=== PATIENT | male | born 1950 | race Caucasian/White ===

== ENCOUNTER 2017-08-23 14:47 | Inpatient (IN) | payer MEDICARE, OTHER ==
[2017-08-23] VITALS (13 sets, daily range): BP systolic 67–115; BP diastolic 51–80; PULSE 60–234; RESP 16–28; TEMP 97.5; O2SAT 94–98
[~2017-08-23] VITALS: Ht 175.3 cm; Wt 100.2 kg
[2017-08-23] MEDS ORDERED: AMIODARONE INJ 150 MG in DEXTROSE 5% IN WATER 100ML INJ 97 ML IV ONE ×2 (15:08)
[2017-08-23] MEDS ORDERED: ADENOSINE IV SOLN 3 MG/ML 2 ML VIAL ONE ×3 (15:30→15:34)
--- NOTE | 2017-08-23 15:35 | RADRPT ---
EXAM DATE/TIME: 08/23/2017 15:10 [place] COMPARISON: No previous studies available for comparison. INDICATIONS : Abnormal results- Tachycardia. MEDICAL HISTORY : None. SURGICAL HISTORY : None. ENCOUNTER: Initial ACUITY: 1 day PAIN SCORE: 0/10 LOCATION: Bilateral chest FINDINGS: A single view of the chest demonstrates the lungs to be symmetrically aerated without evidence of mas s, infiltrate or effusion. The cardiomediastinal contours are unremarkable. Osseous structures are intact. CONCLUSION: No acute disease. Sagar Miles MD on August 23, 2017 at 15:33 Board Certified Radiologist. This report was verified electronically.
[2017-08-23] MEDS ORDERED: MIDAZOLAM HCL 5 MG/ML VIAL (1 ML) ONE (15:39)
[2017-08-23] MEDS ORDERED: ONDANSETRON HCL 4 MG/2 ML VIAL ONE (15:48)
[2017-08-23] MEDS ORDERED: SODIUM CHLORID 0.9% 500 ML INJ 500 ML IV ONE (16:15)
[2017-08-23] MEDS ORDERED: SODIUM CHLORIDE 0.9% IV ONE ×2 (16:15)
[2017-08-23] MEDS ORDERED: MILRINONE IV ONE ×2 (16:15)
[2017-08-23 16:16] LABS: AUTOMATED NEUTROPHIL # 21.1 TH/MM3 (1.8-7.7); BASOPHIL # 0.1 TH/MM3 (0-0.2); BASOPHIL % 0.2 % (0.0-2.0); EOSINOPHIL # 0.1 TH/MM3 (0-0.4); EOSINOPHIL % 0.2 % (0.0-4.0); HEMATOCRIT 41.4 % (39.0-51.0); LYMPH % 8.3 % (9.0-44.0); LYMPHOCYTE # 2.2 TH/MM3 (1.0-4.8); MEAN CELL VOLUME 95.3 FL (80.0-100.0); MEAN CORPUSCULAR HEMOGLOBIN 33.1 PG (27.0-34.0); MEAN CORPUSCULAR HGB CONC 34.7 % (32.0-36.0); MONO % 10.5 % (0.0-8.0); NEUT % 80.8 % (16.0-70.0); PLATELET COUNT 221 TH/MM3 (150-450); RED BLOOD COUNT 4.35 MIL/MM3 (4.50-5.90); RED CELL DISTRIBUTION WIDTH 12.4 % (11.6-17.2); WHITE BLOOD COUNT 26.2 TH/MM3 (4.0-11.0)
[2017-08-23 16:17] LABS: HEMO FLAGS AUTO DIFF
[2017-08-23] MEDS ORDERED: thyroid med (16:18)
[2017-08-23] MEDS ORDERED: BP med (16:18)
[2017-08-23 16:28] LABS: INTERNATIONAL NORMALIZED RATIO 1.1 RATIO
[2017-08-23 16:37] LABS: ALKALINE PHOSPHATASE 39 U/L (45-117); ALT (GPT) 21 U/L (12-78); ANION GAP 10 MEQ/L (5-15); AST (GOT) 38 U/L (15-37); BICARBONATE 16.5 MEQ/L (21.0-32.0); BLOOD UREA NITROGEN 45 MG/DL (7-18); CHLORIDE 101 MEQ/L (98-107); CREATINE KINASE 233 U/L (39-308); GLOMERULAR FILTRATION RATE 42 ML/MIN (>89); POTASSIUM 5.5 MEQ/L (3.5-5.1); SODIUM (NA) 127 MEQ/L (136-145); TOTAL BILIRUBIN ADULT 1.6 MG/DL (0.2-1.0)
[2017-08-23 16:45] LABS: FREE T3 2.53 PG/ML (2.18-3.98); FREE T4 1.5 NG/DL (0.76-1.46); PLATELET ESTIMATE SMEAR NORMAL (NORMAL); PLATELET MORPHOLOGY NORMAL (NORMAL); SCAN/DIFF AUTO DIFF CONFIRMED
[2017-08-23 16:50] LABS: CKMB 3.6 NG/ML (0.5-3.6)
--- NOTE | 2017-08-23 17:08 | PD ---
HPI Chief Complaint: Abnormal Results Time Seen by Provider: 14:55 Travel History International Travel<30 days: No Contact w/Intl Traveler<30days: No Traveled to known affect area: No History of Present Illness HPI Patient is a 67-year-old male who presents to an urgent care center in the area for evaluation of nausea and vomiting which is been going on for the past 5 days. Patient states he thought he had food poisoning and she's not feeling well when in for evaluation. According to EMS the patient had an irregular heartbeat and could not find a blood pressure on him so 911 was called. 911 arrived and found the patient to be in a wide complex tachycardia at a rate of 220-240. They called physician for orders and the physician ordered 10 mg of Cardizem which he received prior to arrival. On arrival the patient is still very tachycardic with an irregular pulse. He denies any chest pain throughout the events. Denies any shortness of breath. He states that he is on 2 blood pressure medicines at home which she cannot remember there names of and he is on thyroid medicine. Denies any fever denies any cough or congestion. Denies a history of cardiac catheterization and does not have a rn intake. PFSH Past Medical History Diminished Hearing: No Hypertension: Yes Thyroid Disease: Yes (hypothy) Past Surgical History Endocrine Surgery: Yes (thyroide ) Social History Alcohol Use: No Tobacco Use: No Substance Use: No Allergies-Medications (Allergen,Severity, Reaction): Coded Allergies: No Known Allergies (Unverified , 08/23/17) Reported Meds & Prescriptions Reported Meds & Active Scripts Active Reported [thyroid med ] [BP med ] Review of Systems Except as stated in HPI: all other systems reviewed are Neg Physical Exam Narrative GENERAL: Well-developed well-nourished, quite pleasant male in no obvious distress. SKIN: Focused skin assessment warm/dry. HEAD: Atraumatic. Normocephalic. EYES: Pupils equal and round. No scleral icterus. No injection or drainage. ENT: No nasal bleeding or discharge. Mucous membranes pink and moist. NECK: Trachea midline. No JVD. CARDIOVASCULAR: Auscultation of the patient's heart reveals heart rate 220-240. Pulse rate however is in the high 100s. 2+ bilateral equal pulses are felt in all 4 extremities. No murmur appreciated. No carotid bruits appreciated. RESPIRATORY: No accessory muscle use. Clear to auscultation. Breath sounds equal bilaterally. GASTROINTESTINAL: Abdomen soft, non-tender, nondistended. Hepatic and splenic margins not palpable. MUSCULOSKELETAL: No obvious deformities. No clubbing. No cyanosis. No edema. NEUROLOGICAL: Awake and alert. No obvious cranial nerve deficits. Motor grossly within normal limits. Normal speech. PSYCHIATRIC: Appropriate mood and affect; insight and judgment normal. Data Data Last Documented VS Vital Signs Date Time Temp Pulse Resp B/P (MAP) Pulse Ox O2 Delivery O2 Flow Rate FiO2 08/23/17 16:10 62 20 85/58 (67) 08/23/17 16:07 97 Room Air 4.00 Orders Orders Electrocardiogram (08/23/17 15:08) Ckmb (Isoenzyme) Profile (08/23/17 15:08) Complete Blood Count With Diff (08/23/17 15:08) Comprehensive Metabolic Panel (08/23/17 15:08) Magnesium (Mg) (08/23/17 15:08) Prothrombin Time / Inr (Pt) (08/23/17 15:08) Act Partial Throm Time (Ptt) (08/23/17 15:08) Troponin I (08/23/17 15:08) Chest, Single Ap (08/23/17 15:08) Ecg Monitoring (08/23/17 15:08) Iv Access Insert/Monitor (08/23/17 15:08) Oximetry (08/23/17 15:08) Oxygen Administration (08/23/17 15:08) B-Type Natriuretic Peptide (08/23/17 15:08) Dextrose 5% In Wate... W/Amiodarone Inj (08/23/17 15:08) Lactic Acid (08/23/17 15:23) Thyroid Stimulating Hormone (08/23/17 15:23) Free T3 (08/23/17 15:23) Free Thyroxine (T4) (08/23/17 15:23) Adenosine Inj (Adenocard Inj) (08/23/17 15:30) Adenosine Inj (Adenocard Inj) (08/23/17 15:31) Adenosine Inj (Adenocard Inj) (08/23/17 15:34) Midazolam Inj (Versed Inj) (08/23/17 15:39) Ondansetron Inj (Zofran Inj) (08/23/17 15:48) Sodium Chlorid 0.9% 500 Ml Inj (Ns 500 M (08/23/17 16:15) Milrinone Inj (Primacor Inj) (08/23/17 16:15) Admit Order (Ed Use Only) (08/23/17 ) CKMB (08/23/17 16:00) CKMB% (08/23/17 16:00) Labs Laboratory Tests Test 08/23/17 16:00 White Blood Count 26.2 TH/MM3 Red Blood Count 4.35 MIL/MM3 Hemoglobin 14.4 GM/DL Hematocrit 41.4 % Mean Corpuscular Volume 95.3 FL Mean Corpuscular Hemoglobin 33.1 PG Mean Corpuscular Hemoglobin Concent 34.7 % Red Cell Distribution Width 12.4 % Platelet Count 221 TH/MM3 Mean Platelet Volume 8.0 FL Neutrophils (%) (Auto) 80.8 % Lymphocytes (%) (Auto) 8.3 % Monocytes (%) (Auto) 10.5 % Eosinophils (%) (Auto) 0.2 % Basophils (%) (Auto) 0.2 % Neutrophils # (Auto) 21.1 TH/MM3 Lymphocytes # (Auto) 2.2 TH/MM3 Monocytes # (Auto) 2.7 TH/MM3 Eosinophils # (Auto) 0.1 TH/MM3 Basophils # (Auto) 0.1 TH/MM3 CBC Comment AUTO DIFF Differential Comment AUTO DIFF CONFIRMED Platelet Estimate NORMAL Platelet Morphology Comment NORMAL Red Cell Morphology Comment NORMAL Prothrombin Time 12.0 SEC Prothromb Time International Ratio 1.1 RATIO Activated Partial Thromboplast Time 27.0 SEC Blood Urea Nitrogen 45 MG/DL Creatinine 1.65 MG/DL Random Glucose 123 MG/DL Total Protein 6.8 GM/DL Albumin 3.2 GM/DL Calcium Level 8.4 MG/DL Magnesium Level 2.0 MG/DL Alkaline Phosphatase 39 U/L Aspartate Amino Transf (AST/SGOT) 38 U/L Alanine Aminotransferase (ALT/SGPT) 21 U/L Total Bilirubin 1.6 MG/DL Sodium Level 127 MEQ/L Potassium Level 5.5 MEQ/L Chloride Level 101 MEQ/L Carbon Dioxide Level 16.5 MEQ/L Anion Gap 10 MEQ/L Estimat Glomerular Filtration Rate 42 ML/MIN Lactic Acid Level 2.4 mmol/L Total Creatine Kinase 233 U/L Creatine Kinase MB 3.6 NG/ML Troponin I 0.45 NG/ML B-Type Natriuretic Peptide 539 PG/ML Free Thyroxine 1.50 NG/DL Free Triiodothyronine (T3) pg/dL 2.53 PG/ML Thyroid Stimulating Hormone 3rd Gen 1.560 uIU/ML MDM Medical Decision Making Medical Screen Exam Complete: Yes Emergency Medical Condition: Yes Differential Diagnosis Ventricular tachycardia, atrial flutter, atrial fibrillation. ACS, AMI, PE. Narrative Course Patient roomed in emergency department, receive Cardizem 10 mg IV bolus prior to arrival, still very tachycardic but seems to be tolerating it fairly well he was given 150 mg of amiodarone over 10 minutes. No response after the next 15 minutes the patient was given and then a adenosine 6 mg IV which did not alter his heart rate, he was then given an additional bolus of 12 mg of adenosine again with no alteration of his heart rate. The patient then began complaining of some mild shortness of breath. Auscultation of his lungs did not reveal any rales. At this time it was felt the patient would best served to be sedated and cardioverted. He was given 2 mg of Versed IV which did not alter his mentation, given an additional 3 for a total of 5 mg of Versed he was then sicker denies cardioverted 100 J. Initially bradycardic afterwards the patient did have some altered mental status. His heart rate eventually returned to 60- 70 bpm normal sinus rhythm. An EKG was repeated which shows sinus rhythm without acute ST segment changes. Blood work was drawn immediately following cardioversion (within a few seconds) and this revealed a troponin of 0.45, creatinine of 1.6, bilirubin 1.6. Fairly clear that the patient has gone into cardiogenic shock, initially hypotensive after cardioversion over the next few hours his blood pressure increased to 98/61. The patient was discussed with Dr. Shun Romero and I suggested that the patient may be given at bolus dose of milrinone, Dr. Romero's partner Dr. Colmenares had called and requested the patient be observed if he is mentally sound after the cardioversion and to hold milrinone. Patient was discussed with Dr. Romero, troponin 0.45, will perform CAT scan of the head given his altered mental status but this is likely from Versed. He will consider anticoagulating the patient after CAT scans in the ICU. Over the next hour or so the patient's blood pressure improved to 98/61. Mental status improved after Versed had been metabolized and he is feeling better. At 1800, Dr. Duarte is at bedside evaluating the patient, we're waiting the results for the stat echo. Patient overall is improved. Has orders for the CVICU and will be transported at this time. Total intervention from EMS and myself: normal saline 2L bolus Cardizem 10 mg IV bolus Amiodarone 150 mg over 10 minutes Adenosine 6 mg bolus Adenosine 12 mg bolus Versed 5 mg IV Synchronized cardioversion 100 J Critical Care Narrative Aggregate critical care time was 35 minutes. Time to perform other separately billable procedures was not included in the critical care time. My time did not include minutes spent treating any other patients simultaneously or on activities that did not directly contribute to the patient's treatment. The services I provided to this patient were to treat and/or prevent clinically significant deterioration that could result in: , Disability, or organ failure. I provided critical care services requiring my management, as noted below: Chart data review, documentation time, medication orders and management, vital sign assessments/reviewing monitor data, ordering and reviewing lab tests, ordering and interpreting/reviewing x-rays and diagnostic studies, care of the patient and discussion of the patient with the admitting physicians. Diagnosis Primary Impression: Tachycardia Additional Impression: Cardiogenic shock Admitting Information Admitting Physician Requests: Admit Condition: Cole Mann MD Aug 23, 2017 17:08
[2017-08-23] MEDS ORDERED: AMIODARONE INJ 900 MG in DEXTROSE 5% IN WATE 500 ML INJ 482 ML IV PRN ×2 (17:12)
--- NOTE | 2017-08-23 17:14 | HHI.HP ---
[facility] Service Critical Care Medicine Primary Care Physician Unknown Admission Diagnosis Unstable VT Diagnosis: Chief Complaint: nausea/vomiting Travel History International Travel<30 Days: No Contact w/Intl Traveler <30 Da: No Traveled to Known Affected Are: No History of Present Illness This is a 67-year-old male with a past medical history significant for hypothyroidism and hypertension well-controlled on medication who presents with a few day history starting , 3 days prior to admission, where he started having nausea and vomiting. He states that his nausea was not associated with eating or food. It was nonbloody, nonbilious. He denies exertion worsening the symptoms. He vehemently denies chest pain, shortness of breath. Denies exertional dyspnea, and even endorsed walking 2 miles on without any difficulties, despite having nausea and vomiting. He denies ever having any past history of coronary artery disease or stroke, and denies any family history of coronary artery disease or stroke. Today his symptoms progressed and he went to an urgent care clinic where he was found to be in a wide complex tachycardia and EMS was called to bring him to the emergency department. EMS was unable to obtain a blood pressure, the patient was initially given 10 mg of Cardizem IV bolus, followed by amiodarone IV bolus , followed by adenosine, followed finally by electrical cardioversion. At this point, the patient converted into normal sinus rhythm. He was slightly hypotensive and then given 2 L normal saline bolus. Stat echo was ordered and is still pending. Troponins which were drawn before electrical cardioversion are mildly elevated at 0.45. BNP is elevated at 539. Lactate is elevated at 2.4. He has evidence of early acute kidney injury and a creatinine of 1.6. A complete review of systems is otherwise negative in this gentleman, including fever, chills, diarrhea, constipation, bloody stools, lower extremity swelling, recent flulike illnesses out to the last 6-8 months, international travel. He does have a history of prior thyroidectomy and a few months ago had a slightly elevated thyroid function levels secondary to iatrogenic hyperthyroidism, but the patient's states that his Synthroid dose was decreased and his recheck levels were within normal limits. Critical care medicine is consulted to evaluate and manage the patient's new acute dysrhythmia and shock. Review of Systems Constitutional: DENIES: Diaphoretic episodes, Fatigue, Fever, Weight gain, Weight loss, Chills, Dizziness, Change in appetite, Night Sweats Endocrine: DENIES: Heat/cold intolerance, Polydipsia, Polyuria, Polyphagia Eyes: DENIES: Blurred vision, Diplopia, Eye inflammation, Eye pain, Vision loss , Photosensitivity, Double Vision Ears, nose, mouth, throat: DENIES: Tinnitus, Hearing loss, Vertigo, Nasal discharge, Oral lesions, Throat pain, Hoarseness, Ear Pain, Running Nose, Epistaxis, Sinus Pain, Toothache, Odynophagia Respiratory: DENIES: Apneas, Cough, Snoring, Wheezing, Hemoptysis, Sputum production, Shortness of breath Cardiovascular: DENIES: Chest pain, Palpitations, Syncope, Dyspnea on Exertion , PND, Lower Extremity Edema, Orthopnea, Claudication Gastrointestinal: COMPLAINS OF: Nausea, Vomiting, DENIES: Abdominal pain, Black stools, Bloody stools, Constipation, Diarrhea, Difficulty Swallowing, Anorexia Musculoskeletal: DENIES: Joint pain, Muscle aches, Stiffness, Joint Swelling, Back pain, Neck pain Neurologic: DENIES: Abnormal gait, Headache, Localized weakness, Paresthesias, Seizures, Speech Problems, Tremor, Poor Balance Past Family Social History Allergies: Coded Allergies: No Known Allergies (Unverified , 08/23/17) Past Medical History Hypothyroidism Hypertension Past Surgical History Right knee surgery Thyroidectomy Reported Medications [thyroid med ] [BP med ] Patient does not know what his thyroid medication dose or blood pressure medications are Active Ordered Medications See MAR Family History Patient does not have any family history of coronary artery disease, stroke, prior heart attack Social History Patient does not drink, does not use tobacco products, does not use illicit drugs Physical Exam Vital Signs Vital Signs Date Time Temp Pulse Resp B/P (MAP) Pulse Ox O2 Delivery O2 Flow Rate FiO2 08/23/17 16:53 64 28 90/66 (74) 98 Nasal Cannula 3.00 08/23/17 16:10 62 20 85/58 (67) 08/23/17 16:07 60 18 88/59 (69) 97 Room Air 4.00 08/23/17 15:46 64 08/23/17 15:44 220 08/23/17 15:31 224 08/23/17 15:25 220 08/23/17 15:20 225 18 94 Room Air 08/23/17 15:20 185 08/23/17 15:14 Room Air 10/7/17 15:14 94 Room Air 08/23/17 15:05 234 08/23/17 14:58 121 16 67/51 (24) 94 Physical Exam GENERAL: Middle-aged obese male, lying in bed, mild distress. HEENT: Normocephalic. Atraumatic. Pupils equal, round, reactive, conjugate. Mucous membranes are moist NECK: Trachea is midline. + JVD CHEST: Equal chest rise. Clear to auscultation. Nasal cannula oxygen CARDIOVASCULAR: Normal rate, regular rhythm. Sinus by telemetry. ABDOMEN: Obese, Soft, nontender, nondistended. No guarding. MUSCULOSKELETAL: Pulses 2+. No peripheral edema. NEUROLOGICAL: RASS -1. Recently sedated for cardioversion. Follows commands. Nonfocal. Laboratory Laboratory Tests Test 08/23/17 16:00 White Blood Count 26.2 Red Blood Count 4.35 Hemoglobin 14.4 Hematocrit 41.4 Mean Corpuscular Volume 95.3 Mean Corpuscular Hemoglobin 33.1 Mean Corpuscular Hemoglobin Concent 34.7 Red Cell Distribution Width 12.4 Platelet Count 221 Mean Platelet Volume 8.0 Neutrophils (%) (Auto) 80.8 Lymphocytes (%) (Auto) 8.3 Monocytes (%) (Auto) 10.5 Eosinophils (%) (Auto) 0.2 Basophils (%) (Auto) 0.2 Neutrophils # (Auto) 21.1 Lymphocytes # (Auto) 2.2 Monocytes # (Auto) 2.7 Eosinophils # (Auto) 0.1 Basophils # (Auto) 0.1 CBC Comment AUTO DIFF Differential Comment AUTO DIFF CONFIRMED Platelet Estimate NORMAL Platelet Morphology Comment NORMAL Red Cell Morphology Comment NORMAL Prothrombin Time 12.0 Prothromb Time International Ratio 1.1 Activated Partial Thromboplast Time 27.0 Blood Urea Nitrogen 45 Creatinine 1.65 Random Glucose 123 Total Protein 6.8 Albumin 3.2 Calcium Level 8.4 Magnesium Level 2.0 Alkaline Phosphatase 39 Aspartate Amino Transf (AST/SGOT) 38 Alanine Aminotransferase (ALT/SGPT) 21 Total Bilirubin 1.6 Sodium Level 127 Potassium Level 5.5 Chloride Level 101 Carbon Dioxide Level 16.5 Anion Gap 10 Estimat Glomerular Filtration Rate 42 Lactic Acid Level 2.4 Total Creatine Kinase 233 Creatine Kinase MB 3.6 Troponin I 0.45 B-Type Natriuretic Peptide 539 Free Thyroxine 1.50 Free Triiodothyronine (T3) pg/dL 2.53 Thyroid Stimulating Hormone 3rd Gen 1.560 Result Diagram: 08/23/17 1600 08/23/17 1600 Imaging Last Impressions Chest X-Ray 08/23/17 1508 Signed Impressions: Service Date/Time: Friday, August 23, 2017 15:10 - CONCLUSION: No acute disease. MD Jay Patel VTE Risk Assessment Jeromerini VTE Risk Assessment: Mod/High Risk (score >= 2) Caprini Risk Assessment Model Point Value = 1 Point Value = 2 Point Value = 3 Point Value = 5 Age 41-60 Minor surgery BMI > 25 kg/m2 Swollen legs Varicose veins or History of unexplained or recurrent spontaneous Oral contraceptives or hormone replacement Sepsis (< 1 month) Serious lung disease, including pneumonia (< 1 month) Abnormal pulmonary function Acute myocardial infarction Congestive heart failure (< 1 month) History of inflammatory bowel disease Medical patient at bed rest Age 61-74 Arthroscopic surgery Major open surgery (> 45 min) Laparoscopic surgery (> 45 min) Malignancy Confined to bed (> 72 hours) Immobilizing plaster cast Central venous access Age >= 75 History of VTE Family history of VTE Factor V Leiden Prothrombin [id number] Lupus anticoagulant Anticardiolipin antibodies Elevated serum homocysteine Heparin-induced thrombocytopenia Other congenital or acquired thrombophilia Stroke (< 1 month) Elective arthroplasty Hip, pelvis, or leg fracture Acute spinal cord injury (< 1 month) Prophylaxis Regimen Total Risk Factor Score Risk Level Prophylaxis Regimen 0-1 Low Early ambulation 2 Moderate Order ONE of the following: *Sequential Compression Device (SCD) *Heparin 5000 units SQ BID 3-4 Higher Order ONE of the following medications: *Heparin 5000 units SQ TID *Enoxaparin/Lovenox 40 mg SQ daily (WT < 150 kg, CrCl > 30 mL/min) *Enoxaparin/Lovenox 30 mg SQ daily (WT < 150 kg, CrCl > 10-29 mL/min) *Enoxaparin/Lovenox 30 mg SQ BID (WT < 150 kg, CrCl > 30 mL/min) AND/OR *Sequential Compression Device (SCD) 5 or more Highest Order ONE of the following medications: *Heparin 5000 units SQ TID (Preferred with Epidurals) *Enoxaparin/Lovenox 40 mg SQ daily (WT < 150 kg, CrCl > 30 mL/min) *Enoxaparin/Lovenox 30 mg SQ daily (WT < 150 kg, CrCl > 10-29 mL/min) *Enoxaparin/Lovenox 30 mg SQ BID (WT < 150 kg, CrCl > 30 mL/min) AND *Sequential Compression Device (SCD) Assessment and Plan Assessment and Plan Assessment: 67-year-old male with past medical history of hypothyroidism and hypertension who presents with new onset tachycardia dysrhythmia, which is either A. fib/flutter with aberrancy versus slow V. tach. He is now converted in sinus rhythm. He is borderline hypotensive. He has evidence of what appears to be cardiogenic shock and intravascular volume overload, hypervolemic hyponatremia, acute kidney injury, congestive hepatopathy, elevated BNP, and elevated troponins. Certainly acute pulmonary embolism could present this way, as could new acute cardiomyopathy. Intracerebral hemorrhage could also produce similar symptoms of nausea and vomiting with ventricular dysrhythmias. We will proceed with CT head, CT pulmonary injury gram, and stat echo. Patient does need to be anticoagulated as long as he does not have a new head bleed. We will continue patient on amiodarone infusion until further formation can be determined. We will aggressively ensure that his electrolytes remain at normal levels, and pending the results of his diagnostic workup, the patient will likely need to be aggressively diuresed for what is likely to be congestive heart failure exacerbation of new and unknown type. Patient remains critically ill now with evidence of multiorgan system dysfunction secondary to his cardiogenic shock secondary to his new onset ventricular dysrhythmia. We will admit him to an ICU and monitored carefully. Plan by systems: Neurologic: - Avoid long-acting sedating meds - Follow up CT head Respiratory: - Aggressive pulmonary toilet - Wean oxygen by nasal cannula for goal SPO2 greater than 92% - Follow up CT pulmonary angiogram Cardiovascular: Cardiogenic shock Elevated troponin, possible NSTEMI Acute CHF exacerbation, new, unknown type New-onset tachydysrhythmia: afib/flutter with aberrancy vs. v tach - Follow-up stat echo - Trend troponin - Patient will need to be anticoagulated following negative CT head - Cardiology consult - Continue amiodarone infusion - Monitor on telemetry in ICU. Zoll pads at bedside - We'll likely need forced diuresis, but will follow up diagnostic studies first Renal: Acute kidney injury -- Strict I/Os - May need Blackmon catheter, we'll hold off initially - Trend creatinine - Renal function likely secondary to cardiogenic shock FEN/GI: congestive hepatopathy Intravascular volume overload Hyperkalemia Hypervolemic hyponatremia Nausea/vomiting - His symptoms nausea and vomiting are likely secondary to congestive hepatopathy secondary to cardiogenic shock - We'll send hepatitis panel and order liver ultrasound - Daily BMP, LFTs, coags - Zofran when necessary for nausea - Forced diuresis after diagnostic studies Heme/ID: Leukocytosis- likely reactive - Daily CBC - No infectious etiology suspected this time - Does not meet transfusion triggers Endocrine: Hypothyroidism --We'll hold off on restarting home Synthroid until we first of the patient's home dose and until his ventricular dysrhythmia is well evaluated Prophylaxis: GI Prophylaxis - Pepcid DVT Prophylaxis -- SCDs - We'll need full dose and a coagulation once negative head CT. Lines: Peripheral IVs We'll start without Blackmon, but if his urine output is not adequate we May Need Pl., Blackmon Dispo: Admitted to the CVICU. Critically ill. This patient remains critically ill with one or more organ systems which are or may become a threat to life. I have spent in excess of 65 minutes discontinuously in the care and management of this patient. This time is exclusive of procedures, and includes, but is not limited to, evaluation of the patient, review of the medical record, discussions with family, consultants, nursing staff, or respiratory therapy, and documentation in the medical record. Code Status Full Code J Carlos Romero MD Aug 23, 2017 17:14
[2017-08-23] MEDS ORDERED: POTASSIUM CHLOR 40 MEQ PREMIX 100 ML IV PRN ×2 (17:15)
[2017-08-23] MEDS ORDERED: CHLORHEXIDINE GLUCONATE 2 % 1 PACK (2 CLOTHS) TOP PRN (17:15)
[2017-08-23] MEDS ORDERED: SODIUM CHLORIDE 0.9% FLUSH 10 ML FLUSH IV FLUSH PRN (17:15)
[2017-08-23] MEDS ORDERED: POTASSIUM CHLOR 20 MEQ PREMIX 100 ML IV PRN ×2 (17:15)
[2017-08-23] MEDS ORDERED: BISACODYL 10 MG SUPP RECTAL PRN (17:15)
[2017-08-23] MEDS ORDERED: ONDANSETRON HCL 4 MG/2 ML VIAL IV PUSH PRN (17:15)
[2017-08-23] MEDS ORDERED: MAGNESIUM OXIDE 400 MG TAB PO PRN (17:15)
[2017-08-23] MEDS ORDERED: POTASSIUM PHOSPHATE MONOBASIC 500 MG TAB PO/TUBE PRN (17:15)
[2017-08-23] MEDS ORDERED: POTASSIUM PHOSPHATE MONOBASIC 500 MG TAB PO PRN (17:15)
[2017-08-23] MEDS ORDERED: MAGNESIUM HYDROXIDE SUSP 30 ML CUP PO PRN (17:15)
[2017-08-23] MEDS ORDERED: LACTULOSE SYRUP 20 GM/30 ML CUP PO PRN (17:15)
[2017-08-23] MEDS ORDERED: SENNOSIDES 8.6 MG TAB PO PRN (17:15)
[2017-08-23] MEDS ORDERED: MAGNESIUM SULFATE INJ 2 GM in SODIUM CHLORIDE 0.9% INJ 96 ML IV PRN (17:15)
[2017-08-23] MEDS ORDERED: RESP: ALBUTEROL 2.5 MG/IPRATROPIUM 0.5 MG NEB (PRN) INH (17:15)
[2017-08-23] MEDS ORDERED: MISCELLANEOUS NURSING INFORMATION XX SCH (17:15)
[2017-08-23] MEDS ORDERED: POTASSIUM PHOSPHATE INJ 30 MMOL in SODIUM CHLOR 0.9% 250 ML INJ 250 ML IV PRN (17:15)
[2017-08-23] MEDS ORDERED: SODIUM PHOSPHATE INJ 30 MMOL in SODIUM CHLOR 0.9% 250 ML INJ 240 ML IV PRN (17:15)
[2017-08-23] MEDS ORDERED: MAGNESIUM SULFATE INJ 4 GM in SODIUM CHLORIDE 0.9% INJ 92 ML IV PRN (17:15)
[2017-08-23] MEDS ORDERED: IOHEXOL 350 MG/ML 10 ML VIAL (for RAD DIAG) IVCONTRAST ONE (17:23)
--- NOTE | 2017-08-23 17:26 | RADRPT ---
EXAM DATE/TIME: 08/23/2017 17:07 [facility] COMPARISON: No previous studies available for comparison. INDICATIONS : Altered mental status. RADIATION DOSE: 56.35 CTDIvol (mGy) MEDICAL HISTORY : Hypertension. SURGICAL HISTORY : Thyroidectomy. ENCOUNTER: Initial ACUITY: 1 day PAIN SCALE: 0/10 LOCATION: cranial TECHNIQUE: Multiple contiguous axial images were obtained of the head. Using automated exposure control and adj ustment of the mA and/or kV according to patient size, radiation dose was kept as low as reasonably a chievable to obtain optimal diagnostic quality images. DICOM format image data is available electro nically for review and comparison. FINDINGS: CEREBRUM: The ventricles are normal for age. No evidence of midline shift, mass lesion, hemorrhage or acute in farction. No extra-axial fluid collections are seen. POSTERIOR FOSSA: The cerebellum and brainstem are intact. The 4th ventricle is midline. The cerebellopontine angle i s unremarkable. EXTRACRANIAL: The visualized portion of the orbits is intact. SKULL: The calvaria is intact. No evidence of skull fracture. CONCLUSION: Normal examination. Vijay Gibbs MD on August 23, 2017 at 17:24 Board Certified Radiologist. This report was verified electronically.
--- NOTE | 2017-08-23 17:48 | RADRPT ---
EXAM DATE/TIME: 08/23/2017 17:13 [facility] COMPARISON: No previous studies available for comparison. INDICATIONS : Chest pain. IV CONTRAST: 75 cc Omnipaque 350 (iohexol) IV RADIATION DOSE: 21.99 CTDIvol (mGy) MEDICAL HISTORY : Hypertension. SURGICAL HISTORY : Thyroidectomy. ENCOUNTER: Initial ACUITY: 1 day PAIN SCALE: 5/10 LOCATION: Bilateral chest TECHNIQUE: Volumetric scanning of the chest was performed using a pulmonary embolism protocol MIP images were re constructed. Using automated exposure control and adjustment of the mA and/or kV according to patien t size, radiation dose was kept as low as reasonably achievable to obtain optimal diagnostic quality images. DICOM format image data is available electronically for review and comparison. Follow-up recommendations for detected pulmonary nodules are based at a minimum on nodule size and pa tient risk factors according to Fleischner Society Guidelines. FINDINGS: PULMONARY ARTERIES: No filling defects are seen in the pulmonary arteries through the segmental level. LUNGS: Mild basilar atelectasis. PLEURAE: There is no pleural thickening or pleural effusion. MEDIASTINUM: There is good visualization of the great vessels of the middle mediastinum. No evidence of mediastin al or hilar adenopathy/mass. Coronary calcifications. Granulomatous calcifications in the left hilum. MUSCULOSKELETAL: Within normal limits for patient age. MISCELLANEOUS: The visualized upper abdominal organs demonstrate no acute abnormality. CONCLUSION: No evidence of pulmonary embolism Sagar Miles MD on August 23, 2017 at 17:42 Board Certified Radiologist. This report was verified electronically.
[2017-08-23] MEDS: HEPARIN-D5W 25,000 U/250 ML 250 ML IV PRN (18:25)
[2017-08-23] MEDS ORDERED: LISI40TA PO (18:52)
[2017-08-23] MEDS ORDERED: AMLO5TAB2 PO (18:52)
[2017-08-23] MEDS ORDERED: LEVO88TA2 PO (18:52)
--- NOTE | 2017-08-23 19:12 | MB ---
cc: SIMEON NARAYANAN DATE OF CONSULTATION: 08/23/2017. HISTORY OF PRESENT ILLNESS: Mr. Burch is a 67-year-old white male with history of hypertension and hypothyroidism. He has had nausea and vomiting for the last three days. He went to the urgent care center and was found to be in wide complex tachycardia. He was brought to the emergency room. He was given IV diltiazem, IV amiodarone and IV adenosine and eventually was cardioverted to sinus rhythm. He had some mild hypotension. His troponin was elevated at 0.45 at 0.45. PAST MEDICAL HISTORY: His past medical history is positive for: 1. Hypertension. 2. Hypothyroidism. 3. No history of diabetes mellitus, dyslipidemia, coronary artery disease or CVA. 4. History of right knee surgery. 5. Thyroidectomy. MEDICATIONS: The patient takes medications for his blood pressure and his thyroid but is not sure about which medicines he takes exactly. ALLERGIES: None. SOCIAL HISTORY: The patient drinks about three drinks a week. He does not drink alcohol. He is accompanied by his . FAMILY HISTORY: Negative for heart disease. REVIEW OF SYSTEMS: Review of systems is otherwise negative. PHYSICAL EXAMINATION: VITAL SIGNS: Blood pressure 98/61, pulse 65 and regular. HEAD, EYES, EARS, NOSE, THROAT: Negative. NECK: 2+ carotid upstrokes, no bruits. LUNGS: Clear. HEART: Regular with no murmurs, rubs or gallops. ABDOMEN: Abdomen soft. No bruits. EXTREMITIES: 2+ distal pulses. NEUROLOGIC: Grossly nonfocal. EKGS: EKG was reviewed and showed wide complex tachycardia. A follow up EKG showed normal sinus rhythm with no acute changes. LABORATORY DATA: Hemoglobin 14.4. Potassium 5.5, creatinine 1.65, AST 38, ALT 21. CK 253, CK-MB 3.6, troponin 0.45. BNP 539. TSH 1.6. DIAGNOSIS: 1. Wide complex tachycardia. 2. Possible [id number] myocardial function. 3. Acute congestive heart failure. 4. Acute renal insufficiency. 5. Nausea and vomiting. 6. Hypertension. 7. Hypothyroidism. RECOMMENDATIONS AND PLAN: Mr. Burch will be admitted to the intensive care unit. Will obtain echocardiogram to evaluate his left ventricular function. Will obtain serial enzymes and EKGs. He will likely need further cardiac testing to evaluate his underlying heart disease. We will monitor his renal function and electrolytes. I will follow him for cardiology during his hospitalization. He will be monitored in the intensive care unit. MD BRENTON Fitzgerald/AMY /6:09 PM /7:03 PM
--- NOTE | 2017-08-23 20:20 | RADRPT ---
EXAM DATE/TIME: 08/23/2017 18:59 [facility] COMPARISON: No previous studies available for comparison. INDICATIONS : Increased lab values. MEDICAL HISTORY : Hypothyroidism. Hypertension. Nausea. Vomiting. SURGICAL HISTORY : Right knee surgery. Thyroid surgery. ENCOUNTER: Initial ACUITY: 1 day PAIN SCORE: 0/10 LOCATION: Bilateral upper quadrant MEASUREMENTS: LIVER: 15.4 cm length COMMON DUCT: 5 mm RIGHT KIDNEY: 14.6 x 4.6 x 5.3 cm SPLEEN: 11.9 cm length FINDINGS: LIVER: Normal echotexture without focal lesion or ductal dilatation. COMMON DUCT: No intraluminal mass or stone visualized. GALLBLADDER: Contains no stones, demonstrates no wall thickening or pericholecystic fluid. PANCREAS: The visualized portions are within normal limits. RIGHT KIDNEY: 6.5 x 6.1 x 5.4 cm simple cyst upper pole right kidney. 1.9 x 0.9 x 1.6 cm cyst right lower pole late rally. SPLEEN: No focal lesion. CONCLUSION: 1. Right renal cysts. Vijay Gibbs MD on August 23, 2017 at 20:17 Board Certified Radiologist. This report was verified electronically.
--- NOTE | 2017-08-23 20:42 | ECHRPT ---
Indication: HEART FAILURE CONCLUSIONS Normal left ventricular size. Wall thickness is normal. The left ventricular systolic function is moderately reduced with an estimated ejection fraction in the range of 35-40%. The right ventricular systoilc function is mildly decreased. Aortic valve sclerosis is present. Mild thickening of the aortic valve leaflets. Trace aortic valve regurgitation. There is trace tricuspid valve regurgitation. The estimated pulmonary arterial pressure is 40 mmHg. BP: / HR: Rhythm: Other MEASUREMENTS (Male / Female) Normal Values Technical Quality:Good 2D ECHO LV Diastolic Diameter PLAX 4.8 cm 4.2 - 5.9 / 3.9 - 5.3 cm LV Systolic Diameter PLAX 4.1 cm IVS Diastolic Thickness 1.2 cm 0.6 - 1.0 / 0.6 - 0.9 cm LVPW Diastolic Thickness 0.8 cm 0.6 - 1.0 / 0.6 - 0.9 cm LV Relative Wall Thickness 0.4 RV Internal Dim ED PLAX 2.2 cm LA Systolic Diameter LX 3.3 cm 3.0 - 4.0 / 2.7 - 3.8 cm M-MODE AV Cusp Separation MM 1.8 cm DOPPLER Mitral E Point Velocity 64.7 cm/s Mitral A Point Velocity 93.8 cm/s Mitral E to A Ratio 0.7 TR Peak Velocity 270.0 cm/s TR Peak Gradient 29.2 mmHg Right Atrial Pressure 10.0 mmHg Pulmonary Artery Systolic Pressu 39.2 mmHg Right Ventricular Systolic Press 39.2 mmHg FINDINGS LEFT VENTRICLE Normal left ventricular size. Wall thickness is normal. The left ventricular systolic function is moderately reduced with an estimated ejection fraction in the range of 35-40%. RIGHT VENTRICLE The right ventricular systoilc function is mildly decreased. LEFT ATRIUM The left atrial size is normal. RIGHT ATRIUM The right atrial size is normal. ATRIAL SEPTUM Normal atrial septal thickness without atrial level shunting by limited color doppler interrogation. AORTA The aortic root and proximal ascending aorta are normal in size on limited imaging. MITRAL VALVE Structurally normal mitral valve. No mitral valve stenosis or regurgitation. AORTIC VALVE Aortic valve sclerosis is present. Mild thickening of the aortic valve leaflets. Trace aortic valve regurgitation. TRICUSPID VALVE There is trace tricuspid valve regurgitation. The estimated pulmonary arterial pressure is 40 mmHg. PULMONARY VALVE No pulmonary valve regurgitation or stenosis. VESSELS The inferior vena cava is normal in size. PERICARDIUM No pericardial effusion. Erika Duarte MD, FACC (Electronically Signed) Final Date:23 August 2017 20:41
[2017-08-23] MEDS ORDERED: FUROSEMIDE 100 MG/10 ML VIAL IV PUSH ONE (21:19)
[2017-08-23] MEDS: FAMOTIDINE 20 MG TAB PO SCH (22:15)
[2017-08-23] MEDS: SODIUM CHLORIDE 0.9% FLUSH 10 ML FLUSH IV FLUSH SCH (22:15)
[2017-08-23] MEDS: DOCUSATE SODIUM 50 MG/SENNA 8.6 MG TAB PO SCH (22:15)
[2017-08-23] MEDS: AMIODARONE INJ 450 MG in DEXTROSE 5% IN WATE(EXCEL) INJ 241 ML IV PRN ×2 (22:16)
[2017-08-24] VITALS (8 sets, daily range): BP systolic 103–144; BP diastolic 73–81; PULSE 55–113; RESP 16–20; TEMP 97.7–98.5; O2SAT 94–95
[2017-08-24] MEDS: CHLORHEXIDINE GLUCONATE 2 % 1 PACK (2 CLOTHS) TOP SCH (04:00)
--- NOTE | 2017-08-24 06:00 | EKG ---
Date Performed: 08/23/2017 Time Performed: 15:52:35 PTAGE: 67 years EKG: Sinus rhythm INFERIOR MYOCARDIAL INFARCTION ABNORMAL ECG INTERPRETATION BASED ON A DEFAULT AGE OF 40 YEARS NO PREVIOUS TRACING DOCTOR: Raoul Ramon Interpretating Date/Time 08/24/2017 05:56:04
--- NOTE | 2017-08-24 06:01 | EKG ---
Date Performed: 08/23/2017 Time Performed: 15:10:18 PTAGE: 67 years EKG: ATRIAL FIBRILLATION WITH RAPID VENTRICULAR RESPONSE LEFT BUNDLE BRANCH BLOCK ST ELEVATION, CONSIDER LATERAL INJURY ST ELEVATION, CONSIDER INFERIOR INJURY ACUTE MA NO PREVIOUS TRACING DOCTOR: Raoul Ramon Interpretating Date/Time 08/24/2017 05:57:38
[2017-08-24] MEDS: AMIODARONE INJ 450 MG in DEXTROSE 5% IN WATE(EXCEL) INJ 241 ML IV PRN ×4 (07:29→22:26)
[2017-08-24 08:07] LABS: HEMATOCRIT 39.7 % (39.0-51.0); MEAN CORPUSCULAR HEMOGLOBIN 33.4 PG (27.0-34.0); MEAN CORPUSCULAR HGB CONC 35.5 % (32.0-36.0); PLATELET COUNT 197 TH/MM3 (150-450); RED BLOOD COUNT 4.22 MIL/MM3 (4.50-5.90); RED CELL DISTRIBUTION WIDTH 12.2 % (11.6-17.2); REVIEW FLAG FINAL; WHITE BLOOD COUNT 15.9 TH/MM3 (4.0-11.0)
[2017-08-24 08:16] LABS: APTT (PATIENT) 45.3 SEC (24.3-30.1); PROTHROMBIN TIME - PATIENT 11.6 SEC (9.8-11.6)
[2017-08-24 08:39] LABS: BICARBONATE 23.6 MEQ/L (21.0-32.0); INDIRECT BILIRUBIN 1.5 MG/DL (0.0-0.8); POTASSIUM 3.9 MEQ/L (3.5-5.1); TOTAL BILIRUBIN ADULT 2.1 MG/DL (0.2-1.0)
[2017-08-24] MEDS ORDERED: AMIODARONE INJ 150 MG in DEXTROSE 5% IN WATER 100ML INJ 97 ML IV ONE ×2 (09:07)
[2017-08-24] MEDS ORDERED: POTASSIUM CHLOR 20 MEQ PREMIX 100 ML IV ONE (09:15)
--- NOTE | 2017-08-24 09:48 | HHI.CCPN ---
Subjective Remarks/Hospital Course Hospital Course: This is a 67-year-old male with a past medical history significant for hypothyroidism and hypertension well-controlled on medication who presents with a few day history starting , 3 days prior to admission, where he started having nausea and vomiting. He states that his nausea was not associated with eating or food. It was nonbloody, nonbilious. He denies exertion worsening the symptoms. He vehemently denies chest pain, shortness of breath. Denies exertional dyspnea, and even endorsed walking 2 miles on without any difficulties, despite having nausea and vomiting. He denies ever having any past history of coronary artery disease or stroke, and denies any family history of coronary artery disease or stroke. Today his symptoms progressed and he went to an urgent care clinic where he was found to be in a wide complex tachycardia and EMS was called to bring him to the emergency department. EMS was unable to obtain a blood pressure, the patient was initially given 10 mg of Cardizem IV bolus, followed by amiodarone IV bolus , followed by adenosine, followed finally by electrical cardioversion. At this point, the patient converted into normal sinus rhythm. He was slightly hypotensive and then given 2 L normal saline bolus. Stat echo was ordered and is still pending. Troponins which were drawn before electrical cardioversion are mildly elevated at 0.45. BNP is elevated at 539. Lactate is elevated at 2.4. He has evidence of early acute kidney injury and a creatinine of 1.6. A complete review of systems is otherwise negative in this gentleman, including fever, chills, diarrhea, constipation, bloody stools, lower extremity swelling, recent flulike illnesses out to the last 6-8 months, international travel. He does have a history of prior thyroidectomy and a few months ago had a slightly elevated thyroid function levels secondary to iatrogenic hyperthyroidism, but the patient's states that his Synthroid dose was decreased and his recheck levels were within normal limits. Critical care medicine is consulted to evaluate and manage the patient's new acute dysrhythmia and shock. Subjective: 08/24: no acute events overnight. however, this morning went into afib with RVR, HR sustained 110s/120s. rebolused amiodarone, gave 2gm mgso4 and 20 meq kcl iv. end-organ perfusion is improving, renal function back to normal, bili still elevated, but lft's normalizing. net negative with single dose of lasix. Objective Vital Signs Date Time Temp Pulse Resp B/P (MAP) Pulse Ox O2 Delivery O2 Flow Rate FiO2 08/24/17 08:16 95 Nasal Cannula 2.00 08/24/17 07:29 60 108/76 08/24/17 07:00 97.8 18 Intake and Output 08/24/17 08/24/17 08/25/17 08:00 16:00 00:00 Intake Total 592 ml Output Total 2075 ml Balance -1483 ml Result Diagram: 08/24/17 0748 08/24/17 0748 Imaging Last Impressions Chest X-Ray 08/23/17 1508 Signed Impressions: Service Date/Time: Wednesday, August 23, 2017 15:10 - CONCLUSION: No acute disease. Sagar Miles MD Objective Remarks GENERAL: Middle-aged obese male, lying in bed, no acute distress today. HEENT: Normocephalic. Atraumatic. Pupils equal, round, reactive, conjugate. Mucous membranes are moist NECK: Trachea is midline. - JVD. CHEST: Equal chest rise. Clear to auscultation. Nasal cannula oxygen CARDIOVASCULAR: tachycardic rate, irregularly irregular rhythm. afib by tele. ABDOMEN: Obese, Soft, nontender, nondistended. No guarding. MUSCULOSKELETAL: Pulses 2+. No peripheral edema. NEUROLOGICAL: RASS 0. follows commands. nonfocal. A/P Assessment and Plan Assessment: 67-year-old male with past medical history of hypothyroidism and hypertension who presents with new onset tachydysrhythmia, which is either A. fib/flutter with aberrancy versus slow V. tach. Clinically his end-organ function is improving. He is out of shock. His troponins are downtrending. He will need ongoing work-up for his new-onset dysrhythmia. will transition off amiodarone infusion this afternoon. appreciate cardiology input. could leave the ICU as early as today or tomorrow. Highly complex with multiple medical problems ongoing. Plan by systems: Neurologic: - Avoid long-acting sedating meds - Follow up CT head Respiratory: - Aggressive pulmonary toilet - Wean oxygen by nasal cannula for goal SPO2 greater than 92% - Follow up CT pulmonary angiogram Cardiovascular: Cardiogenic shock- resolved. Elevated troponin, possible NSTEMI Acute CHF exacerbation, new, systolic type New-onset tachydysrhythmia: afib/flutter with aberrancy vs. v tach - echo 08/23: ef 30-35%, mild pulmonary htn, RVSP 35. no RWMA - Trend troponins, downtrending. - continue heparin drip for afib and r/o NSTEMI. - Cardiology consult - Continue amiodarone infusion, after 24h, will transition to PO amiodarone. - Monitor on telemetry. - hold off on additional forced diuresis. patient appears currently euvolemic. Renal: Acute kidney injury- resolved. -- Strict I/Os - Trend creatinine - Renal function likely secondary to cardiogenic shock: renal function has improved as shock has improved. FEN/GI: congestive hepatopathy- resolving. Intravascular volume overload- resolving. Hyperkalemia- resolved. Hypervolemic hyponatremia- resolving. Nausea/vomiting- resolved. - His symptoms nausea and vomiting are likely secondary to congestive hepatopathy secondary to cardiogenic shock, and his n/v symptoms have resolved. - liver ultrasound 08/23 normal - hepatitis panel pending. - Daily BMP, LFTs, coags - Zofran when necessary for nausea Heme/ID: Leukocytosis- likely reactive, improving. - Daily CBC - No infectious etiology suspected this time - Does not meet transfusion triggers Endocrine: Hypothyroidism --Continue to hold off on home synthroid until we have better evaluated afib. Would likely restart at a lower dose when able. half-life of synthroid is > 30 days, so no harm in holding off for a few days to await work-up. Prophylaxis: GI Prophylaxis - Pepcid DVT Prophylaxis -- SCDs - heparin drip Lines: Peripheral IVs Dispo: will consider transitioning out of CVICU if he remains stable. J Carlos Romero MD Aug 24, 2017 09:48
[2017-08-24] MEDS: SODIUM CHLORIDE 0.9% FLUSH 10 ML FLUSH IV FLUSH SCH ×2 (10:02→21:49)
[2017-08-24] MEDS: FAMOTIDINE 20 MG TAB PO SCH ×2 (10:02→21:49)
[2017-08-24] MEDS: DOCUSATE SODIUM 50 MG/SENNA 8.6 MG TAB PO SCH ×2 (10:02→21:49)
[2017-08-24] MEDS: MAGNESIUM SULFATE 1 GM PREMIX 100 ML IV SCH ×2 (10:03→11:02)
[2017-08-24] MEDS: HEPARIN-D5W 25,000 U/250 ML 250 ML IV PRN (13:31)
--- NOTE | 2017-08-24 14:17 | PD.CARD.PN ---
Subjective Subjective Remarks No CP or SOB, in AF w controlled VR, echo w mod LV dysfx Objective Medications Administered Medications Medications (Trade) Dose Ordered Sig/Deepthi Route PRN Reason Start Time Stop Time Status Last Admin Dose Admin Sodium Chloride (NS Flush) 2 ml BID IV FLUSH 08/23/17 21:00 08/24/17 10:02 Famotidine (Pepcid) 20 mg Q12HR PO 08/23/17 21:00 08/24/17 10:02 Senna/Docusate Sodium (Justine-Colace) 1 tab BID PO 08/23/17 21:00 08/24/17 10:02 Amiodarone HCl 450 mg/Dextrose 250 ml @ 33.33 mls/ hr [id number] PRN IV Per Protocol 08/23/17 17:30 08/24/17 07:29 Heparin Sodium/ Dextrose 250 ml @ 10 mls/hr TITRATE PRN IV Coagulation management 08/23/17 17:45 08/24/17 13:31 Vital Signs / I&O Vital Signs Date Time Temp Pulse Resp B/P (MAP) Pulse Ox O2 Delivery O2 Flow Rate FiO2 08/24/17 11:00 95 Nasal Cannula 4.00 08/24/17 11:00 98.0 74 18 104/73 (83) 94 08/24/17 11:00 74 08/24/17 09:48 103 107/78 08/24/17 08:16 95 Nasal Cannula 2.00 08/24/17 07:29 60 108/76 08/24/17 07:00 60 08/24/17 07:00 97.8 60 18 108/76 (87) 95 08/24/17 07:00 94 Nasal Cannula 4.00 08/24/17 04:00 55 18 103/75 (84) 94 08/24/17 04:00 55 08/24/17 04:00 94 Nasal Cannula 4.00 08/24/17 00:00 97.7 64 16 103/75 (84) 94 08/24/17 00:00 68 08/23/17 23:15 94 Nasal Cannula 4.00 08/23/17 22:16 62 96/70 08/23/17 21:12 98 Nasal Cannula 2.00 08/23/17 20:00 68 08/23/17 20:00 97.5 71 22 115/80 (92) 94 08/23/17 20:00 94 Nasal Cannula 2.00 08/23/17 18:23 08/23/17 18:15 97.5 71 22 114/77 (89) 94 08/23/17 17:52 65 22 98/61 (73) 94 Room Air 08/23/17 16:53 64 28 90/66 (74) 98 Nasal Cannula 3.00 08/23/17 16:10 62 20 85/58 (67) 08/23/17 16:07 60 18 88/59 (69) 97 Room Air 4.00 08/23/17 15:46 64 08/23/17 15:44 220 08/23/17 15:31 224 08/23/17 15:25 220 08/23/17 15:20 225 18 94 Room Air 08/23/17 15:20 185 08/23/17 15:14 Room Air 08/23/17 15:14 94 Room Air 08/23/17 15:05 234 08/23/17 14:58 121 16 67/51 (56) 94 I/O 08/23/17 08/23/17 08/23/17 08/24/17 08/24/17 08/24/17 07:00 15:00 23:00 07:00 15:00 23:00 Intake Total 600 ml 592 ml 100 ml Output Total 2075 ml Balance 600 ml -1483 ml 100 ml Intake Oral 240 ml IV Total 600 ml 352 ml 100 ml Output Urine Total 2075 ml # Bowel Movements 0 Physical Exam GENERAL: In NAD. SKIN: Warm and dry. HEAD: Normocephalic. EYES: No scleral icterus. No injection or drainage. NECK: Supple, trachea midline. No JVD or lymphadenopathy. CARDIOVASCULAR: Regular rate and rhythm without murmurs, gallops, or rubs. RESPIRATORY: Breath sounds equal bilaterally. No accessory muscle use. GASTROINTESTINAL: Abdomen soft, non-tender, nondistended. MUSCULOSKELETAL: No cyanosis, trace edema. Laboratory Laboratory Tests Test 08/23/17 16:00 08/23/17 19:20 08/23/17 23:54 08/24/17 07:48 White Blood Count 26.2 TH/MM3 15.9 TH/MM3 Red Blood Count 4.35 MIL/MM3 4.22 MIL/MM3 Hemoglobin 14.4 GM/DL 14.1 GM/DL Hematocrit 41.4 % 39.7 % Mean Corpuscular Volume 95.3 FL 94.0 FL Mean Corpuscular Hemoglobin 33.1 PG 33.4 PG Mean Corpuscular Hemoglobin Concent 34.7 % 35.5 % Red Cell Distribution Width 12.4 % 12.2 % Platelet Count 221 TH/MM3 197 TH/MM3 Mean Platelet Volume 8.0 FL 7.9 FL Neutrophils (%) (Auto) 80.8 % Lymphocytes (%) (Auto) 8.3 % Monocytes (%) (Auto) 10.5 % Eosinophils (%) (Auto) 0.2 % Basophils (%) (Auto) 0.2 % Neutrophils # (Auto) 21.1 TH/MM3 Lymphocytes # (Auto) 2.2 TH/MM3 Monocytes # (Auto) 2.7 TH/MM3 Eosinophils # (Auto) 0.1 TH/MM3 Basophils # (Auto) 0.1 TH/MM3 CBC Comment AUTO DIFF Differential Comment AUTO DIFF CONFIRMED Platelet Estimate NORMAL Platelet Morphology Comment NORMAL Red Cell Morphology Comment NORMAL Prothrombin Time 12.0 SEC 11.6 SEC Prothromb Time International Ratio 1.1 RATIO 1.0 RATIO Activated Partial Thromboplast Time 27.0 SEC 37.0 SEC 45.3 SEC Blood Urea Nitrogen 45 MG/DL 28 MG/DL Creatinine 1.65 MG/DL 0.95 MG/DL Random Glucose 123 MG/DL 93 MG/DL Total Protein 6.8 GM/DL 6.9 GM/DL Albumin 3.2 GM/DL 3.4 GM/DL Calcium Level 8.4 MG/DL 8.8 MG/DL Magnesium Level 2.0 MG/DL Alkaline Phosphatase 39 U/L 44 U/L Aspartate Amino Transf (AST/SGOT) 38 U/L 19 U/L Alanine Aminotransferase (ALT/SGPT) 21 U/L 19 U/L Total Bilirubin 1.6 MG/DL 2.1 MG/DL Sodium Level 127 MEQ/L 133 MEQ/L Potassium Level 5.5 MEQ/L 3.9 MEQ/L Chloride Level 101 MEQ/L 100 MEQ/L Carbon Dioxide Level 16.5 MEQ/L 23.6 MEQ/L Anion Gap 10 MEQ/L 9 MEQ/L Estimat Glomerular Filtration Rate 42 ML/MIN 79 ML/MIN Lactic Acid Level 2.4 mmol/L 1.2 mmol/L Total Creatine Kinase 233 U/L Creatine Kinase MB 3.6 NG/ML Troponin I 0.45 NG/ML 0.71 NG/ML 0.62 NG/ML B-Type Natriuretic Peptide 539 PG/ML Free Thyroxine 1.50 NG/DL Free Triiodothyronine (T3) pg/dL 2.53 PG/ML Thyroid Stimulating Hormone 3rd Gen 1.560 uIU/ML Nasal Screen MRSA (PCR) MRSA NOT DETECTED Direct Bilirubin 0.6 MG/DL Indirect Bilirubin 1.5 MG/DL Test 08/24/17 11:30 Troponin I 0.59 NG/ML Imaging Last 24 hours Impressions Chest X-Ray 08/23/17 1508 Signed Impressions: Service Date/Time: Friday, August 23, 2017 15:10 - CONCLUSION: No acute disease. Sagar Miles MD Assessment and Plan Problem List: (1) Wide-complex tachycardia ICD Codes: I47.2 - Ventricular tachycardia (2) Cardiomyopathy ICD Codes: I42.9 - Cardiomyopathy, unspecified (3) CHF (congestive heart failure) ICD Codes: I50.9 - Heart failure, unspecified (4) Atrial fibrillation ICD Codes: I48.91 - Unspecified atrial fibrillation (5) HTN (hypertension) ICD Codes: I10 - Essential (primary) hypertension (6) Renal insufficiency ICD Codes: N28.9 - Disorder of kidney and ureter, unspecified (7) NSTEMI (non-ST elevated myocardial infarction) ICD Codes: I21.4 - Non-ST elevation (NSTEMI) myocardial infarction Assessment and Plan No angina. Now in a fib w controlled VR. Continue amio. Echo w mod LV dysfx. Renal fx improved. Proceed with L and R heart cath and possible PCI tomorrow. D/ w pt and , they wish to proceed. Erika Duarte MD Aug 24, 2017 14:17
[2017-08-24 17:42] LABS: APTT (PATIENT) 40.4 SEC (24.3-30.1)
[2017-08-25] VITALS (18 sets, daily range): BP systolic 95–140; BP diastolic 66–82; PULSE 65–109; RESP 14–20; TEMP 98–99.5; O2SAT 89–97
[2017-08-25] MEDS: CHLORHEXIDINE GLUCONATE 2 % 1 PACK (2 CLOTHS) TOP SCH (04:00)
[2017-08-25 05:59] LABS: MEAN CORPUSCULAR HEMOGLOBIN 32.8 PG (27.0-34.0); MEAN CORPUSCULAR HGB CONC 34.9 % (32.0-36.0); PLATELET COUNT 203 TH/MM3 (150-450); RED BLOOD COUNT 4.26 MIL/MM3 (4.50-5.90); RED CELL DISTRIBUTION WIDTH 12.2 % (11.6-17.2); REVIEW FLAG FINAL; WHITE BLOOD COUNT 15.7 TH/MM3 (4.0-11.0)
[2017-08-25 06:11] LABS: PROTHROMBIN TIME - PATIENT 11.5 SEC (9.8-11.6)
[2017-08-25 06:27] LABS: BICARBONATE 24.9 MEQ/L (21.0-32.0); POTASSIUM 4.1 MEQ/L (3.5-5.1); TOTAL BILIRUBIN ADULT 1.4 MG/DL (0.2-1.0)
[2017-08-25] MEDS: FAMOTIDINE 20 MG TAB PO SCH ×2 (09:48→23:10)
[2017-08-25] MEDS: DOCUSATE SODIUM 50 MG/SENNA 8.6 MG TAB PO SCH ×2 (09:48→21:00)
[2017-08-25] MEDS: SODIUM CHLORIDE 0.9% FLUSH 10 ML FLUSH IV FLUSH SCH ×2 (09:49→21:00)
--- NOTE | 2017-08-25 10:29 | HHI.CCPN ---
Subjective Remarks/Hospital Course Hospital Course: This is a 67-year-old male with a past medical history significant for hypothyroidism and hypertension well-controlled on medication who presents with a few day history starting , 3 days prior to admission, where he started having nausea and vomiting. He states that his nausea was not associated with eating or food. It was nonbloody, nonbilious. He denies exertion worsening the symptoms. He vehemently denies chest pain, shortness of breath. Denies exertional dyspnea, and even endorsed walking 2 miles on without any difficulties, despite having nausea and vomiting. He denies ever having any past history of coronary artery disease or stroke, and denies any family history of coronary artery disease or stroke. Today his symptoms progressed and he went to an urgent care clinic where he was found to be in a wide complex tachycardia and EMS was called to bring him to the emergency department. EMS was unable to obtain a blood pressure, the patient was initially given 10 mg of Cardizem IV bolus, followed by amiodarone IV bolus , followed by adenosine, followed finally by electrical cardioversion. At this point, the patient converted into normal sinus rhythm. He was slightly hypotensive and then given 2 L normal saline bolus. Stat echo was ordered and is still pending. Troponins which were drawn before electrical cardioversion are mildly elevated at 0.45. BNP is elevated at 539. Lactate is elevated at 2.4. He has evidence of early acute kidney injury and a creatinine of 1.6. A complete review of systems is otherwise negative in this gentleman, including fever, chills, diarrhea, constipation, bloody stools, lower extremity swelling, recent flulike illnesses out to the last 6-8 months, international travel. He does have a history of prior thyroidectomy and a few months ago had a slightly elevated thyroid function levels secondary to iatrogenic hyperthyroidism, but the patient's states that his Synthroid dose was decreased and his recheck levels were within normal limits. Critical care medicine is consulted to evaluate and manage the patient's new acute dysrhythmia and shock. Subjective: 08/24: no acute events overnight. however, this morning went into afib with RVR, HR sustained 110s/120s. rebolused amiodarone, gave 2gm mgso4 and 20 meq kcl iv. end-organ perfusion is improving, renal function back to normal, bili still elevated, but lft's normalizing. net negative with single dose of lasix. 08/25: Resting in bed comfortably. Not in any acute distress. Awaiting cardiac catheterization today. Objective Vital Signs Date Time Temp Pulse Resp B/P (MAP) Pulse Ox O2 Delivery O2 Flow Rate FiO2 08/25/17 08:54 94 Nasal Cannula 2.00 08/25/17 04:00 92 08/25/17 04:00 98.4 16 95/66 (76) Intake and Output 08/25/17 08/25/17 08/26/17 08:00 16:00 00:00 Intake Total 571 ml Output Total 1100 ml Balance -529 ml Result Diagram: 08/25/17 0524 08/25/17523 Imaging Last Impressions Chest X-Ray 08/23/17 1508 Signed Impressions: Service Date/Time: Wednesday, August 23, 2017 15:10 - CONCLUSION: No acute disease. Sagar Miles MD Objective Remarks GENERAL: Middle-aged obese male, lying in bed, no acute distress today. HEENT: Normocephalic. Atraumatic. Pupils equal, round, reactive, conjugate. Mucous membranes are moist NECK: Trachea is midline. - JVD. CHEST: Equal chest rise. Clear to auscultation. Nasal cannula oxygen CARDIOVASCULAR: tachycardic rate, irregularly irregular rhythm. afib by tele. ABDOMEN: Obese, Soft, nontender, nondistended. No guarding. MUSCULOSKELETAL: Pulses 2+. No peripheral edema. NEUROLOGICAL: Awake alert oriented 3, grossly nonfocal A/P Assessment and Plan Assessment: 67-year-old male with past medical history of hypothyroidism and hypertension who presents with new onset tachydysrhythmia, which is either A. fib/flutter with aberrancy versus slow V. tach. Clinically his end-organ function is improving. He is out of shock. His troponins are downtrending. He will need ongoing work-up for his new-onset dysrhythmia. will transition off amiodarone infusion this afternoon. appreciate cardiology input. could leave the ICU as early as today or tomorrow. Highly complex with multiple medical problems ongoing. Plan by systems: Neurologic: - Avoid long-acting sedating meds - Follow up CT head Respiratory: - Aggressive pulmonary toilet - Wean oxygen by nasal cannula for goal SPO2 greater than 92% - CT pulmonary angiogram negative for PE Cardiovascular: Cardiogenic shock- resolved. Elevated troponin, possible NSTEMI Acute CHF exacerbation, new, systolic type New-onset tachydysrhythmia: afib/flutter with aberrancy vs. v tach - echo 08/23: ef 30-35%, mild pulmonary htn, RVSP 35. no RWMA - Trend troponins, downtrending. - continue heparin drip for afib and r/o NSTEMI. - Cardiology consulted. Dr. Duarte planning cardiac catheterization 08/25 - Continue amiodarone infusion-cardiology to decide switching to by mouth - Monitor on telemetry. - hold off on additional forced diuresis. patient appears currently euvolemic. Renal: Acute kidney injury- resolved. -- Strict I/Os - Trend creatinine - Renal function likely secondary to cardiogenic shock: renal function has improved as shock has improved. FEN/GI: congestive hepatopathy- resolving. Intravascular volume overload- resolving. Hyperkalemia- resolved. Hypervolemic hyponatremia- resolving. Nausea/vomiting- resolved. - His symptoms nausea and vomiting are likely secondary to congestive hepatopathy secondary to cardiogenic shock, and his n/v symptoms have resolved. - liver ultrasound 08/23 normal - hepatitis panel pending. - Daily BMP, LFTs, coags - Zofran when necessary for nausea Heme/ID: Leukocytosis- likely reactive, improving. - Daily CBC - No infectious etiology suspected this time - Does not meet transfusion triggers Endocrine: Hypothyroidism --Continue to hold off on home synthroid until we have better evaluated afib. Would likely restart at a lower dose when able. half-life of synthroid is > 30 days, so no harm in holding off for a few days to await work-up. Prophylaxis: GI Prophylaxis - Pepcid DVT Prophylaxis -- SCDs - heparin drip Lines: Peripheral IVs Dispo: Transfer out of CVICU - okayed by Dr. Duarte per SINGLE NEEDLE OPERATOR. We'll consult and transfer to hospitalist service for further medical management. Lev Bermudez MD Aug 25, 2017 10:29
[2017-08-25] MEDS: AMIODARONE INJ 450 MG in DEXTROSE 5% IN WATE(EXCEL) INJ 241 ML IV PRN ×2 (11:46)
[2017-08-25] MEDS: HEPARIN-D5W 25,000 U/250 ML 250 ML IV PRN (11:48)
[2017-08-25] MEDS ORDERED: HEPARIN-NS/PF INJ 1,000 ML ONE (20:33)
[2017-08-25] MEDS ORDERED: MIDAZOLAM HCL 5 MG/5 ML VIAL ONE (20:35)
[2017-08-25] MEDS ORDERED: HEPARIN SODIUM - IV 10,000 UNITS/10 ML VIAL ONE (21:02)
[2017-08-25] MEDS ORDERED: PROTAMINE SULFATE 50 MG/5 ML VIAL ONE (21:32)
--- NOTE | 2017-08-25 21:46 | CATHPROC ---
[employer] HIS Report Study Information Study Number Admission Scheduled Start Study Start [id number] Aug 23 2017 4:22PM 08/25/2017 Aug 25 2017 8:03PM [place] Service Cardiac Catheterization Admit Source Facility Department Emergency department [facility] - Patient Access Director Physician and Clinical Staff Initial Erika Martinez Pump Attendant Sho Turpin,RN Recorder Phil Pope,(R) Scrub Silver Rodriguez RCIS(BS) Procedures Performed Procedure Location (Site) Vessel Name Angiogram LV LV Ventricle Coronary Angiograms LCA Left Coronary Coronary Angiograms RCA Right Coronary Equipment Time Manager Payer Description Size Mfg Part Number Used/Scraped [id number] 20:58 DONG RODRIGUEZ SWAN BELA CATHETER FR 7 Used *[id number] TRANSDUCER, TRUWAVE [id number] 20:06 DONG RODRIGUEZ * Used W/STOCKCOCK *[id number] 21:29 CARD[employer] MEDICAL VASCADE, FR5 CLOSURE SYSTEM FR 5 Used *[id number] 21:29 CARD[employer]A MEDICAL VASCADE, FR6 CLOSURE SYSTEM FR 6\\7 Used *[id number] *[id number] [id number] *[id number] *[id number] 20:06 [employer] PACK, CCL CUSTOM * Used *[id number] 20:06 [employer] PACER PEN, SKIN DUAL W/ RULER * Used *[id number] 20:54 [employer] MEDICAL SHEATH, FR7.5 PRELUDE 11CM FR 7.5 11CM Used [id number] 20:06 [employer] MEDICAL WIRE, 3MMJ .035 180CM 180CM Used *[id number] PROBE COVER, STERILE [id number] 20:06 Pro[employer]rion * Used ULTRASOUND W/ GEL *[id number] 20:59 NAMIC MANIFOLD, 2 PORT * Used *[id number] 20:06 NAMIC MANIFOLD, 4 PORT * Used *[id number] 20:06 NAMIC TUBING, HIGH PRESSURE 48" 48" Used *[id number] 20:06 NYCOMED OMNIPAQUE, 350 MG, 150ML 150ML [id number] Used [id number] 20:06 [place] [employer],WARM AIR CCL * Used *[id number] 20:06 TERUMO MEDICAL SHEATH, FR5 TERUMO (10CM) FR 5 Used *[id number] History: Current Medications Medication Dosage/Unit Route Frequency Last Date/Time Taken LISINOPRIL History: Allergies Allergy Reaction No Known Allergies History: Risk Factors Family History of Hypertension Dyslipidemia Previous NE Previous Heart Failure Premature CAD Yes No No No No Prior Valve Prior PCI Prior CABG Surgery No No No Cerebrovascular Peripheral Artery Chronic Lung On Dialysis Diabetes Disease Disease Disease No No No No No History: Stress Tests Stress or Imaging Studies Performed No History: Arrhythmias Selection Items Sustained VT History: Other Disease Selection Items HTN History: Other Current Smoker No Labs Hgb (g/dl) Hct (%) RBC (MIL/MM3) WBC (l/cumm) Platelets (thousands) 11.60-17.00 35.00-51.00 4.00-5.90 4.00-11.00 150.00-450.00 14.0 40 4.2 15.9 203 Glucose (mg/dl) BUN (mg/dl) Creatinine (mg/dl) BUN:Creatinine (1:x) 74.00-106.00 7.00-18.00 0.50-1.30 10.00-20.00 93 28 0.9 31.1 Na (meq/l) K (meq/l) Cl (meq/l) CO2 (mmol/L) Ca (mg/dl) 136.00-145.00 3.50-5.10 98.00-107.00 21.00-32.00 8.50-10.10 133 3.9 100 23.6 8.8 PT (sec) PTT (sec) INR (PTT:PT) 9.80-11.60 24.30-30.10 0.90-1.10 11.6 45.3 1 Troponin I (ng/ml) Troponin T (ng/ml) CPK (u/l) CPK-MB (ng/ML) 0.02-0.05 0.40-2.10 26.00-308.00 0.50-3.60 0.71 0.59 233 3.6 Medication Medication Total Dose (Bolus/Oral) Medication Total Dosage/Unit 1% XYLOCAINE 20 mL FENTANYL 50 mcg HEPARIN 3000 units PROTAMINE 30 mg VERSED 2 mg Medications (Bolus/Oral) Medication Time Given Dosage/Unit Administered By Reason VERSED 08/25/2017 8:49:15 PM 2 mg Sho Turpin 2 mg VERSED given in lab by Sho Turpin RN in Right Forearm via Peripheral IV. FENTANYL 08/25/2017 8:49:32 PM 50 mcg Sho Turpin 50 mcg FENTANYL given in lab by Sho Turpin, OLAF in Right Forearm via Peripheral IV. 1% XYLOCAINE 08/25/2017 8:51:59 PM 20 mL Erika Duarte 20 mL 1% XYLOCAINE given in lab by Erika Duarte in Right Groin via Subcutaneous. HEPARIN 08/25/2017 9:03:35 PM 3000 units Sho Turpin 3000 units HEPARIN given in lab by Sho Turpin RN in Right Forearm via Peripheral IV. PROTAMINE 08/25/2017 9:33:39 PM 30 mg Sho Turpin 30 mg PROTAMINE given in lab by Sho Turpin RN in Right Forearm via Peripheral IV. Medication (Drip) Medication Time Given Dosage/Unit Concentration/Unit Diluent (ml) Solution Amiodarone Drip 08/25/2017 8:41:15 PM 0.51 mg/min 450 mg 250 D5W Patient arrived on 0.51 mg/min Amiodarone Drip in Right Forearm via Peripheral IV. Pump/Drip Flow = 1 7 ml/hr using D5W with a concentration of 450 mg in 250 ml. IV Solutions 08/25/2017 8:35:40 PM 0 mL (IV) 1000 NaCl .9 IV Solutions given in lab by Sho Turpin RN in Right Forearm via Peripheral IV. Pump/Drip Flow = 20 ml/hr using NaCl .9. Initial Case Assessment Cardiovascular HR Rhythm NIBP Chest Pain 80 Sinus 145/87 0 Edema Present Skin color Skin None Normal Warm Dry Circulatory - Right Pulses Dorsalis Pedis Femoral 2 2 Scale (0,1,2,3,4,d) Circulatory - Left Pulses Dorsalis Pedis Femoral 2 2 Scale (0,1,2,3,4,d) Neurological State Oriented to time-place- Alert Moves all extremities person Respiration - General Respiration Rate SpO2 (%) O2 (lpm) (B/min) 26 96 2 Final Case Assessment Cardiovascular HR Rhythm NIBP Chest Pain 75 Sinus 130/90 0 Edema Present Skin color Skin None Normal Warm Dry Circulatory - Right Pulses Dorsalis Pedis Femoral 2 2 Scale (0,1,2,3,4,d) Circulatory - Left Pulses Dorsalis Pedis Femoral 2 2 Scale (0,1,2,3,4,d) Neurological State Oriented to time-place- Alert Moves all extremities person Respiration - General Respiration Rate SpO2 (%) O2 (lpm) (B/min) 21 96 2 Chronological Log Time Study Chronological Log 20:22:58 Patient arrived via Bed. 20:22:59 Patient Name, D.O.B, / Armband Verified By R.N. 20:22:59 Consent signed by the physician and the patient and verified by the Patient Access Director staff. 20:23:00 Pre-op and post- op instructions given; patient acknowledges understanding of instructions. 20:23:01 Verbal Stimulation=2 Physical Stimulation=2 Airway=2 Respiration=2 TOTAL=8. (0=absent, 1=li mited, 2=present) 20:23:07 Presedation assessment performed by Patient Access Director RN. 20:23:12 Patient has been NPO for More than 6Hrs. 20:23:13 Skin Breakdown- none per patient. 20:35:29 Patient Warmer Placed on the Table. 20:35:31 Zeinab Prominences Protected 20:35:32 A # 20 IV was noted in the Forearm (right). Grade = 0 Vitals capture started with the following parameters, Patient=Adult, Interval=5 min, Initial Pr bvglcn=029 mmHg, 20:35:35 Deflation Rate=5 mmHg, Cuff placed on Right Arm IV Solutions given in lab by Sho Turpin, RN in Right Forearm via Peripheral IV. Pump/Drip Flow = 20 ml/hr using 20:35:40 NaCl .9. 20:35:41 History and physical on the chart or being dictated. Assessment: Initial Case, HR=80 BPM, Rhythm=Sinus, GMHB=021/87 mmhg, Chest Pain=0, Edema=None, Color=Normal, Skin = Warm, Dry Right Pulses: Stevenson Ped=2, Femoral=2 20:35:42 Left Pulses: Stevenson Ped=2, Femoral=2 Neurological: State=Alert, Ox3, BELL Respiration: Resp=26 B/min, SpO2=96 %, O2=2 lpm 20:35:44 Bilateral groins prepped with 2% chlorhexidine, and draped after a 3 minute waiting time. 20:36:11 HR=83 bpm, YRZK=423/87 mmhg, SpO2=93.0 %, Resp=23 B/min, Pain=0, Margarito=10, Guerra=2 20:40:05 Pressure channel 1 zeroed. 20:40:36 A # 20 IV was noted in the Hand (right). Grade = 0 20:41:04 A # 20 IV was noted in the Forearm (right). Grade = 0 20:41:12 HR=80 bpm, UAMQ=239/87 mmhg, SpO2=96.0 %, Resp=24 B/min, Pain=0, Margarito=10, Guerra=2 Patient arrived on 0.51 mg/min Amiodarone Drip in Right Forearm via Peripheral IV. Pump/Drip Fl ow = 17 ml/hr using 20:41:15 D5W with a concentration of 450 mg in 250 ml. 20:42:25 MD paged 20:46:13 HR=79 bpm, BXEY=313/83 mmhg, SpO2=96.0 %, Resp=22 B/min, Pain=0, Margarito=10, Guerra=2 20:47:28 Reference ECG taken 20:48:31 MD arrived. 20:49:15 2 mg VERSED given in lab by Sho Turpin RN in Right Forearm via Peripheral IV. 20:49:32 50 mcg FENTANYL given in lab by Sho Turpin RN in Right Forearm via Peripheral IV. 20:51:14 HR=77 bpm, HQUC=593/81 mmhg, SpO2=93.0 %, Resp=25 B/min, Pain=0, Margarito=10, Guerra=2 Time Out. Correct patient, correct procedure, correct physician, power injector loaded, or not loaded with contrast with 20:51:31 surgical team present. Time Out Concurred by MD and individual staff in procedure. 20:51:58 Case Start 20:51:59 20 mL 1% XYLOCAINE given in lab by Erika Duarte in Right Groin via Subcutaneous. 20:54:25 Access site was Right Femoral Artery. 20:54:35 A SHEATH, FR5 TERUMO (10CM) FR 5 was advanced into the Fem Art (right) using the Percutaneo us technique. 20:54:42 Access site was Right Femoral Vein. A SHEATH, FR7.5 PRELUDE 11CM FR 7.5 11CM was advanced into the Fem Vein (right) using the Percu taneous 20:54:47 technique. 20:56:13 HR=81 bpm, JOYQ=247/82 mmhg, SpO2=92.0 %, Resp=20 B/min, Pain=0, Margarito=10, Guerra=2 20:58:23 Pressure channel 2 zeroed. 20:58:58 A SWAN BELA CATHETER FR 7 was inserted via Fem Vein (right) 21:01:14 HR=78 bpm, RGQX=425/80 mmhg, SpO2=94.0 %, Resp=18 B/min, Pain=0, Margarito=10, Guerra=2 A PIGTAIL ANG. INFINITI CATHETER FR 5 was advanced over a wire. OMNIPAQUE, 350 MG, 150ML 150ML was used 21:03:04 for injections. 21:03:35 3000 units HEPARIN given in lab by Sho Turpin RN in Right Forearm via Peripheral IV. Thermo CO: CO=6.9 l/m, HR=72 bpm, Condition=Condition 1. Used in calculation. 21:05:54 Equipment: Description and Size=SWAN BELA CATHETER FR 7, Type=Bath Probe, CC=0.579 Injectant: Temp=19.0 - 22.0 Celsius, Volume=10.0 ml 21:06:11 HR=72 bpm, WZZO=911/73 mmhg, SpO2=95.0 %, Resp=18 B/min, Pain=0, Mragarito=10, Guerra=2 Thermo CO: CO=5.4 l/m, HR=72 bpm, Condition=Condition 1. Used in calculation. 21:06:34 Equipment: Description and Size=SWAN BELA CATHETER FR 7, Type=Bath Probe, CC=0.579 Injectant: Temp=19.0 - 22.0 Celsius, Volume=10.0 ml Thermo CO: CO=6.4 l/m, HR=73 bpm, Condition=Condition 1. Used in calculation. 21:07:15 Equipment: Description and Size=SWAN BELA CATHETER FR 7, Type=Bath Probe, CC=0.579 Injectant: Temp=19.0 - 22.0 Celsius, Volume=10.0 ml Recorded Pressure: LV, PCW, HR=64, Condition=Condition 1 21:08:18 (Left Ventricle) LV 119/10/19, (Pulmonary Capillary Wedge) PCW Recorded Pressure: LV, MPA, HR=80, Condition=Condition 1 21:08:35 (Left Ventricle) LV 125/11/23, (Main Pulmonary Artery) MPA 34/14/23 21:09:24 Saturation: Site=PA (Pulmonary Artery) , O2=82.1 %, Hgb=14 gm/dl, Condition=Condition 1. Us ed in calculation. 21:10:15 Saturation: Site=Ao (Aorta) , O2=97.3 %, Hgb=14 gm/dl, Condition=Condition 1. Used in calcu lation. Recorded Pressure: LV, RV, HR=87, Condition=Condition 1 21:10:49 (Left Ventricle) LV 102/11/21, (Right Ventricle) RV 33//14 21:11:01 Saturation: Site=RV (Right Ventricle) , O2=80.5 %, Hgb=14 gm/dl, Condition=Condition 1. Use d in calculation. 21:11:12 HR=75 bpm, TSJN=124/79 mmhg, SpO2=95.0 %, Resp=21 B/min, Pain=0, Margarito=10, Guerra=2 Recorded Pressure: LV, RA, HR=73, Condition=Condition 1 21:12:18 (Left Ventricle) LV 119/11/21, (Right Atrium) RA 14 21:12:22 Saturation: Site=RA (Right Atrium) , O2=82.3 %, Hgb=14 gm/dl, Condition=Condition 1. Used i n calculation. 21:13:31 [place] Bela Catheter Removed 21:14:14 The LV was injected at 10 cc/sec for a total of 30. OMNIPAQUE, 350 MG, 150ML 150ML used. Recorded Pressure: LV, Ao, HR=74, Condition=Condition 1 21:15:18 (Left Ventricle) LV 120/12/23, (Aorta) Ao 121/70/91 21:15:45 Catheter was removed A JL 4.0 INFINITI CATHETER FR 5 was advanced over a wire. OMNIPAQUE, 350 MG, 150ML 150ML was us ed for 21:15:47 injections. 21:16:09 HR=75 bpm, XAJY=927/86 mmhg, SpO2=95.0 %, Resp=20 B/min, Pain=0, Margarito=10, Guerra=2 21:16:49 The LCA was injected and visualized at various angles. OMNIPAQUE, 350 MG, 150ML 150ML used . Recorded Pressure: Ao, HR=73, Condition=Condition 1 21:17:01 (Aorta) Ao 119/73/92 21:18:44 Catheter was removed A AR MOD INFINITI CATHETER FR 5 was advanced over a wire. OMNIPAQUE, 350 MG, 150ML 150ML was us ed for 21:19:17 injections. 21:19:55 The RCA was injected and visualized at various angles. OMNIPAQUE, 350 MG, 150ML 150ML used . 21:20:38 Catheter was removed 21:21:14 HR=77 bpm, NEQK=401/83 mmhg, SpO2=94.0 %, Resp=20 B/min, Pain=0, Margarito=10, Guerra=2 21:26:15 HR=72 bpm, MHIB=085/82 mmhg, SpO2=95.0 %, Resp=20 B/min, Pain=0, Margarito=10, Guerra=2 21:27:35 Activated Clotting Time Drawn 21:28:43 An injection in the Fem Art (right) was made through the SHEATH, FR5 TERUMO (10CM) FR 5. 21:29:58 VASCADE, FR5 CLOSURE SYSTEM FR 5 placement in the Fem Art (right) 21:31:12 HR=74 bpm, MEJF=554/84 mmhg, SpO2=96.0 %, Resp=20 B/min, Pain=0, Margarito=10, Guerra=2 21:31:43 Case End 21:33:39 30 mg PROTAMINE given in lab by Sho Turpin, OLAF in Right Forearm via Peripheral IV. 21:35:28 Sheath removed; pressure applied to access site. 21:35:35 No case complications noted. 21:35:36 Cine recording checked. Assessment: Final Case, HR=75 BPM, Rhythm=Sinus, KKAF=255/90 mmhg, Chest Pain=0, Edema=None, Color=Normal, Skin = Warm, Dry Right Pulses: Stevenson Ped=2, Femoral=2 21:35:38 Left Pulses: Stevenson Ped=2, Femoral=2 Neurological: State=Alert, Ox3, BELL Respiration: Resp=21 B/min, SpO2=96 %, O2=2 lpm 21:36:18 HR=75 bpm, HCTU=011/90 mmhg, SpO2=94.0 %, Resp=22 B/min, Pain=0, Margarito=10, Guerra=2 21:39:25 Bedside Report will be given. 21:39:42 A Left and Right Heart Cath was performed. 21:41:14 HR=73 bpm, MCAV=352/93 mmhg, SpO2=94.0 %, Resp=21 B/min, Pain=0, Margarito=10, Guerra=2 21:45:48 Vitals capture stopped. 21:45:54 Sterile dressing applied to site 21:48:10 [facility] - Contrast Media Used In Study Contrast Total Opened (mL) Total Used (mL) Total Wasted (mL) Omnipaque 150 70 80 End Study - Maximum Contrast Load Max Contrast Load (mL) 555.6 End Study - Radiation Exposure Fluoro Time (minutes) 6.5 End Study - Patient Disposition Complications Transferred To Interventional Outcome No Telemetry Bed No attempt made
[2017-08-26] VITALS (26 sets, daily range): BP systolic 115–128; BP diastolic 67–75; PULSE 61–78; RESP 16–20; TEMP 98.1–98.4; O2SAT 93–98
[2017-08-26] MEDS: AMIODARONE INJ 450 MG in DEXTROSE 5% IN WATE(EXCEL) INJ 241 ML IV PRN ×4 (01:32→17:08)
[2017-08-26] MEDS: SODIUM CHLOR 0.9% 1000 ML INJ 500 ML IV SCH ×4 (03:00→18:00)
[2017-08-26] MEDS: CHLORHEXIDINE GLUCONATE 2 % 1 PACK (2 CLOTHS) TOP SCH (04:00)
[2017-08-26 05:20] LABS: HEMATOCRIT 38.8 % (39.0-51.0); MEAN CELL VOLUME 92.8 FL (80.0-100.0); MEAN CORPUSCULAR HEMOGLOBIN 32.4 PG (27.0-34.0); MEAN CORPUSCULAR HGB CONC 34.9 % (32.0-36.0); PLATELET COUNT 205 TH/MM3 (150-450); RED BLOOD COUNT 4.18 MIL/MM3 (4.50-5.90); REVIEW FLAG FINAL; WHITE BLOOD COUNT 13.7 TH/MM3 (4.0-11.0)
[2017-08-26 05:39] LABS: APTT (PATIENT) 26.8 SEC (24.3-30.1); INTERNATIONAL NORMALIZED RATIO 1.1 RATIO; PROTHROMBIN TIME - PATIENT 11.7 SEC (9.8-11.6)
[2017-08-26 05:44] LABS: POTASSIUM 4.1 MEQ/L (3.5-5.1)
[2017-08-26 05:48] LABS: HDL CHOLESTEROL 43.6 MG/DL (40.0-60.0); INDIRECT BILIRUBIN 0.9 MG/DL (0.0-0.8); TOTAL BILIRUBIN ADULT 1.4 MG/DL (0.2-1.0)
--- NOTE | 2017-08-26 08:50 | HHI.PR ---
Subjective Remarks This is a 67-year-old male with a past medical history significant for hypothyroidism and hypertension well-controlled on medication who presents with a few day history starting , 3 days prior to admission, where he started having nausea and vomiting. He states that his nausea was not associated with eating or food. It was nonbloody, nonbilious. He denies exertion worsening the symptoms. He vehemently denies chest pain, shortness of breath. Denies exertional dyspnea, and even endorsed walking 2 miles on without any difficulties, despite having nausea and vomiting. He denies ever having any past history of coronary artery disease or stroke, and denies any family history of coronary artery disease or stroke. Today his symptoms progressed and he went to an urgent care clinic where he was found to be in a wide complex tachycardia and EMS was called to bring him to the emergency department. EMS was unable to obtain a blood pressure, the patient was initially given 10 mg of Cardizem IV bolus, followed by amiodarone IV bolus , followed by adenosine, followed finally by electrical cardioversion. At this point, the patient converted into normal sinus rhythm. He was slightly hypotensive and then given 2 L normal saline bolus. Stat echo was ordered and is still pending. Troponins which were drawn before electrical cardioversion are mildly elevated at 0.45. BNP is elevated at 539. Lactate is elevated at 2.4. He has evidence of early acute kidney injury and a creatinine of 1.6. A complete review of systems is otherwise negative in this gentleman, including fever, chills, diarrhea, constipation, bloody stools, lower extremity swelling, recent flulike illnesses out to the last 6-8 months, international travel. He does have a history of prior thyroidectomy and a few months ago had a slightly elevated thyroid function levels secondary to iatrogenic hyperthyroidism, but the patient's states that his Synthroid dose was decreased and his recheck levels were within normal limits. Critical care medicine is consulted to evaluate and manage the patient's new acute dysrhythmia and shock. Subjective: 08/24: no acute events overnight. however, this morning went into afib with RVR, HR sustained 110s/120s. rebolused amiodarone, gave 2gm mgso4 and 20 meq kcl iv. end-organ perfusion is improving, renal function back to normal, bili still elevated, but lft's normalizing. net negative with single dose of lasix. 08/25: Resting in bed comfortably. Not in any acute distress. Awaiting cardiac catheterization today. HAD CATH ON 08-25 SHOWED MODERATE CAD AND MODERATE TO SEVERE LV DYSFUNCTION 08-26 TO GO FOR EP STUDY TODAY DW RN AND PT AND AM LABS RESTART HOME MEDS Objective Vitals Vital Signs Date Time Temp Pulse Resp B/P (MAP) Pulse Ox O2 Delivery O2 Flow Rate FiO2 08/26/17 07:00 98.2 71 20 128/73 (91) 96 08/26/17 07:00 96 Nasal Cannula 2.00 08/26/17 07:00 75 08/26/17 06:00 64 08/26/17 05:00 73 08/26/17 04:00 98.2 67 18 125/71 (89) 94 08/26/17 04:00 66 08/26/17 03:59 97 Nasal Cannula 2.00 08/26/17 03:00 67 08/26/17 02:00 67 08/26/17 01:32 70 08/26/17 01:02 66 08/26/17 00:00 66 08/25/17 23:55 97 Nasal Cannula 2.00 08/25/17 23:45 98.5 65 18 121/77 (92) 97 08/25/17 23:00 65 08/25/17 22:00 89 Room Air 08/25/17 22:00 72 08/25/17 22:00 98.5 72 18 132/75 (94) 89 08/25/17 20:00 77 08/25/17 20:00 92 Nasal Cannula 1.00 08/25/17 19:46 99.5 77 20 140/80 (100) 92 08/25/17 19:00 78 08/25/17 18:00 84 08/25/17 17:00 82 08/25/17 16:00 78 08/25/17 16:00 98.0 78 18 126/77 (93) 95 08/25/17 16:00 96 Nasal Cannula 2.00 08/25/17 15:00 76 08/25/17 14:00 76 08/25/17 13:00 72 08/25/17 12:00 98.1 101 14 121/74 (90) 95 08/25/17 12:00 95 Nasal Cannula 2.00 08/25/17 12:00 66 08/25/17 11:46 66 117/60 08/25/17 11:00 68 08/25/17 08:54 94 Nasal Cannula 2.00 I/O 08/25/17 08/25/17 08/25/17 08/26/17 08/26/17 08/26/17 07:00 15:00 23:00 07:00 15:00 23:00 Intake Total 571 ml 1662 ml 132 ml Output Total 1100 ml 525 ml 725 ml Balance -529 ml 1137 ml -593 ml Intake Oral 240 ml 240 ml 30 ml IV Total 331 ml 1422 ml 102 ml Output Urine Total 1100 ml 525 ml 725 ml # Bowel Movements 0 0 0 Result Diagram: 08/26/17 0454 08/26/17 0454 Other Results Laboratory Tests Test 08/23/17 16:00 08/23/17 19:20 08/23/17 23:54 08/24/17 07:48 White Blood Count 26.2 TH/MM3 15.9 TH/MM3 Red Blood Count 4.35 MIL/MM3 4.22 MIL/MM3 Hemoglobin 14.4 GM/DL 14.1 GM/DL Hematocrit 41.4 % 39.7 % Mean Corpuscular Volume 95.3 FL 94.0 FL Mean Corpuscular Hemoglobin 33.1 PG 33.4 PG Mean Corpuscular Hemoglobin Concent 34.7 % 35.5 % Red Cell Distribution Width 12.4 % 12.2 % Platelet Count 221 TH/MM3 197 TH/MM3 Mean Platelet Volume 8.0 FL 7.9 FL Neutrophils (%) (Auto) 80.8 % Lymphocytes (%) (Auto) 8.3 % Monocytes (%) (Auto) 10.5 % Eosinophils (%) (Auto) 0.2 % Basophils (%) (Auto) 0.2 % Neutrophils # (Auto) 21.1 TH/MM3 Lymphocytes # (Auto) 2.2 TH/MM3 Monocytes # (Auto) 2.7 TH/MM3 Eosinophils # (Auto) 0.1 TH/MM3 Basophils # (Auto) 0.1 TH/MM3 CBC Comment AUTO DIFF Differential Comment AUTO DIFF CONFIRMED Platelet Estimate NORMAL Platelet Morphology Comment NORMAL Red Cell Morphology Comment NORMAL Prothrombin Time 12.0 SEC 11.6 SEC Prothromb Time International Ratio 1.1 RATIO 1.0 RATIO Activated Partial Thromboplast Time 27.0 SEC 37.0 SEC 45.3 SEC Blood Urea Nitrogen 45 MG/DL 28 MG/DL Creatinine 1.65 MG/DL 0.95 MG/DL Random Glucose 123 MG/DL 93 MG/DL Total Protein 6.8 GM/DL 6.9 GM/DL Albumin 3.2 GM/DL 3.4 GM/DL Calcium Level 8.4 MG/DL 8.8 MG/DL Magnesium Level 2.0 MG/DL Alkaline Phosphatase 39 U/L 44 U/L Aspartate Amino Transf (AST/SGOT) 38 U/L 19 U/L Alanine Aminotransferase (ALT/SGPT) 21 U/L 19 U/L Total Bilirubin 1.6 MG/DL 2.1 MG/DL Sodium Level 127 MEQ/L 133 MEQ/L Potassium Level 5.5 MEQ/L 3.9 MEQ/L Chloride Level 101 MEQ/L 100 MEQ/L Carbon Dioxide Level 16.5 MEQ/L 23.6 MEQ/L Anion Gap 10 MEQ/L 9 MEQ/L Estimat Glomerular Filtration Rate 42 ML/MIN 79 ML/MIN Lactic Acid Level 2.4 mmol/L 1.2 mmol/L Total Creatine Kinase 233 U/L Creatine Kinase MB 3.6 NG/ML Troponin I 0.45 NG/ML 0.71 NG/ML 0.62 NG/ML B-Type Natriuretic Peptide 539 PG/ML Free Thyroxine 1.50 NG/DL Free Triiodothyronine (T3) pg/dL 2.53 PG/ML Thyroid Stimulating Hormone 3rd Gen 1.560 uIU/ML Nasal Screen MRSA (PCR) MRSA NOT DETECTED Direct Bilirubin 0.6 MG/DL Indirect Bilirubin 1.5 MG/DL Hepatitis A IgM Antibody NEGATIVE Hepatitis B Surface Antigen NEGATIVE Hepatitis B Core IgM Antibody NEGATIVE Hepatitis C Antibody NEGATIVE Test 08/24/17 11:30 08/24/17 16:44 08/24/17 18:37 08/25/17 05:24 Troponin I 0.59 NG/ML 0.49 NG/ML Activated Partial Thromboplast Time 40.4 SEC 44.0 SEC White Blood Count 15.7 TH/MM3 Red Blood Count 4.26 MIL/MM3 Hemoglobin 14.0 GM/DL Hematocrit 40.0 % Mean Corpuscular Volume 94.0 FL Mean Corpuscular Hemoglobin 32.8 PG Mean Corpuscular Hemoglobin Concent 34.9 % Red Cell Distribution Width 12.2 % Platelet Count 203 TH/MM3 Mean Platelet Volume 8.0 FL Prothrombin Time 11.5 SEC Prothromb Time International Ratio 1.0 RATIO Blood Urea Nitrogen 15 MG/DL Creatinine 0.74 MG/DL Random Glucose 106 MG/DL Total Protein 6.8 GM/DL Albumin 3.1 GM/DL Calcium Level 8.3 MG/DL Alkaline Phosphatase 46 U/L Aspartate Amino Transf (AST/SGOT) 17 U/L Alanine Aminotransferase (ALT/SGPT) 18 U/L Total Bilirubin 1.4 MG/DL Direct Bilirubin 0.4 MG/DL Sodium Level 133 MEQ/L Potassium Level 4.1 MEQ/L Chloride Level 101 MEQ/L Carbon Dioxide Level 24.9 MEQ/L Anion Gap 7 MEQ/L Estimat Glomerular Filtration Rate 105 ML/MIN Indirect Bilirubin 1.0 MG/DL Test 08/26/17 04:54 08/26/17 04:56 White Blood Count 13.7 TH/MM3 Red Blood Count 4.18 MIL/MM3 Hemoglobin 13.6 GM/DL Hematocrit 38.8 % Mean Corpuscular Volume 92.8 FL Mean Corpuscular Hemoglobin 32.4 PG Mean Corpuscular Hemoglobin Concent 34.9 % Red Cell Distribution Width 12.0 % Platelet Count 205 TH/MM3 Mean Platelet Volume 7.8 FL Blood Urea Nitrogen 10 MG/DL Creatinine 0.61 MG/DL Random Glucose 97 MG/DL Total Protein 6.4 GM/DL Albumin 2.9 GM/DL Calcium Level 8.4 MG/DL Alkaline Phosphatase 45 U/L Aspartate Amino Transf (AST/SGOT) 14 U/L Alanine Aminotransferase (ALT/SGPT) 16 U/L Total Bilirubin 1.4 MG/DL Direct Bilirubin 0.5 MG/DL Sodium Level 132 MEQ/L Potassium Level 4.1 MEQ/L Chloride Level 99 MEQ/L Carbon Dioxide Level 25.0 MEQ/L Anion Gap 8 MEQ/L Estimat Glomerular Filtration Rate 131 ML/MIN Indirect Bilirubin 0.9 MG/DL Triglycerides Level 80 MG/DL Cholesterol Level 103 MG/DL LDL Cholesterol 43 MG/DL HDL Cholesterol 43.6 MG/DL Cholesterol/HDL Ratio 2.36 RATIO Prothrombin Time 11.7 SEC Prothromb Time International Ratio 1.1 RATIO Activated Partial Thromboplast Time 26.8 SEC Imaging Last Impressions Chest X-Ray 08/23/17 1500 Signed Impressions: Service Date/Time: Wednesday, August 23, 2017 15:10 - CONCLUSION: No acute disease. Sagar Miles MD Liver Ultrasound 08/23/17 0000 Signed Impressions: Service Date/Time: Wednesday, August 23, 2017 18:59 - CONCLUSION: 1. Right renal cysts. Vijay Gibbs MD Head CT 08/23/17 0000 Signed Impressions: Service Date/Time: Wednesday, August 23, 2017 17:07 - CONCLUSION: Normal examination. Vijay Gibbs MD CT Angiography 08/23/17 0000 Signed Impressions: Service Date/Time: Wednesday, August 23, 2017 17:13 - CONCLUSION: No evidence of pulmonary embolism Sagar Miles MD Objective Remarks GENERAL: AWAKE ALERT ORIENTED x3 NO ACUTE DISTRESS SKIN: Warm and dry. HEAD: Atraumatic. Normocephalic. EYES: Pupils equal and round. No scleral icterus. No injection or drainage. EOMI ENT: No nasal bleeding or discharge. Mucous membranes pink and moist. TONGUE MIDLINE NECK: Trachea midline. No JVD. SUPPLE CARDIOVASCULAR: Regular rate and rhythm. S1, S2 NO S3 OR S4 NO HEAVE OR THRILL RESPIRATORY: No accessory muscle use. Clear to auscultation. Breath sounds equal bilaterally. GASTROINTESTINAL: Abdomen soft, non-tender, nondistended. Hepatic and splenic margins not palpable. MUSCULOSKELETAL: Extremities without clubbing, cyanosis, or edema. No obvious deformities. NEUROLOGICAL: Awake and alert. No obvious cranial nerve deficits. Motor grossly within normal limits. Five out of 5 muscle strength in the arms and legs. Normal speech. PSYCHIATRIC: Appropriate mood and affect; insight and judgment normal. Procedures CARDIAC CATH 10-9 MODERATE CAD, MODERATE TO SEVERE LV DYSFUNCTION Medications and IVs Current Medications Amiodarone HCl 150 mg/Dextrose 100 ml @ 600 mls/hr Q10M ONCE IV Last administered on 08/23/17 15:20; Start 08/23/17 at 15:08; Stop 08/23/17 at 15:17 ; Status DC Adenosine (Adenocard Inj) 6 mg STK-MED ONCE .ROUTE Last administered on 15:30; Start 08/23/17 at 15:30; Stop 08/23/17 at 15:31; Status DC Adenosine (Adenocard Inj) 6 mg STK-MED ONCE .ROUTE Last administered on 15:32; Start 08/23/17 at 15:31; Stop 08/23/17 at 15:32; Status DC Adenosine (Adenocard Inj) 6 mg STK-MED ONCE .ROUTE Last administered on 15:32; Start 08/23/17 at 15:34; Stop 08/23/17 at 15:35; Status DC Midazolam HCl (Versed Inj) 5 mg STK-MED ONCE .ROUTE Last administered on 15:45; Start 08/23/17 at 15:39; Stop 08/23/17 at 15:40; Status DC Ondansetron HCl (Zofran Inj) 8 mg STK-MED ONCE .ROUTE Last administered on 08/23 15:48; Start 08/23/17 at 15:48; Stop 08/23/17 at 15:49; Status DC Sodium Chloride 500 ml @ 1,000 mls/hr BOLUS ONCE IV Last administered on 08/23 16:15; Start 08/23/17 at 16:15; Stop 08/23/17 at 16:44; Status DC Milrinone Lactate 5 mg/Sodium Chloride 105 ml @ 630 mls/hr BOLUS ONCE IV ; Start 08/23/17 at 16:15; Stop 08/23/17 at 16:24; Status Cancel Milrinone Lactate 5 mg/Sodium Chloride 50 ml @ 300 mls/hr BOLUS ONCE IV ; Start 08/23/17 at 16:15; Stop 08/23/17 at 16:19; Status DC Magnesium Oxide (Mag-Ox) 800 mg UNSCH PRN PO For Magnesium 1.2 - 1.6 mg/dL; Start 08/23/17 at 17:15 Magnesium Sulfate 4 gm/Sodium Chloride 100 ml @ 50 mls/hr UNSCH PRN IV For Magnesium 0.9 - 1.1 mg/dL; Start 08/23/17 at 17:15 Magnesium Sulfate 2 gm/Sodium Chloride 100 ml @ 50 mls/hr UNSCH PRN IV For Magnesium 1.2 - 1.6 mg/dL; Start 08/23/17 at 17:15 Potassium Chloride 100 ml @ 50 mls/hr Q2H PRN IV For Potassium 2.8 - 3.2 mEq/L ; Start 08/23/17 at 17:15 Potassium Chloride 100 ml @ 50 mls/hr Q2H PRN IV For Potassium 3.3 - 3.5 mEq/L ; Start 08/23/17 at 17:15 Potassium Chloride 100 ml @ 50 mls/hr Q2H PRN IV For Potassium 2.8 - 3.2 mEq/L ; Start 08/23/17 at 17:15 Potassium Chloride 100 ml @ 25 mls/hr UNSCH PRN IV For Potassium 3.3 - 3.5 mEq /L; Start 08/23/17 at 17:15 Potassium Phosphate (K-Phos) 2,000 mg Q4H PRN PO For Phosphorus < 2.5 mg/dL; Start 08/23/17 at 17:15 Potassium Phosphate (K-Phos) 2,000 mg UNSCH PRN PO/TUBE SEE LABEL COMMENTS; Start 08/23/17 at 17:15 Potassium Phosphate 30 mmol/ Sodium Chloride 260 ml @ 42 mls/hr UNSCH PRN IV SEE LABEL COMMENTS; Start 08/23/17 at 17:15 Sodium Phosphate 30 mmol/Sodium Chloride 250 ml @ 42 mls/hr UNSCH PRN IV For Phosphorus < 2.5 mg/dL; Start 08/23/17 at 17:15 Sodium Chloride (NS Flush) 2 ml UNSCH PRN IV FLUSH FLUSH AFTER USING IV ACCESS ; Start 08/23/17 at 17:15 Sodium Chloride (NS Flush) 2 ml BID IV FLUSH Last administered on 08/25/17 21: 00; Start 08/23/17 at 21:00 Famotidine (Pepcid) 20 mg Q12HR PO Last administered on 08/25/17 23:10; Start 08/23/17 at 21:00 Ondansetron HCl (Zofran Inj) 4 mg Q6H PRN IV PUSH NAUSEA OR VOMITING; Start at 17:15 Albuterol/ Ipratropium (Duoneb Neb) 1 ampule Q2HR NEB PRN INH WHEEZING; Start 08/23/17 at 17:15 Miscellaneous Information 1 Q361D XX ; Start 08/23/17 at 17:15 Chlorhexidine Gluconate (Chlorhexidine 2% Cloth) 3 pack Taper DAILY@04 TOP Last administered on 08/25/17 04:00; Start 08/24/17 at 04:00; Stop 08/20/18 at 03:59 Chlorhexidine Gluconate (Chlorhexidine 2% Cloth) 3 pack UNSCH PRN TOP HYGIENIC CARE; Start 08/23/17 at 17:15 Senna/Docusate Sodium (Justine-Colace) 1 tab BID PO Last administered on 09:48; Start 08/23/17 at 21:00 Magnesium Hydroxide (Milk Of Magnesia Liq) 30 ml Q12H PRN PO MILD - MODERATE CONSTIPATION; Start 08/23/17 at 17:15 Sennosides (Senokot) 17.2 mg Q12H PRN PO MODERATE - SEVERE CONSTIPATION; Start 08/23/17 at 17:15 Bisacodyl (Dulcolax Supp) 10 mg DAILY PRN RECTAL SEVERE CONSITIPATION; Start 08/23/17 at 17:15 Lactulose (Lactulose Liq) 30 ml DAILY PRN PO SEVERE CONSITIPATION; Start at 17:15 Amiodarone HCl 900 mg/Dextrose 500 ml @ 33.33 mls/ hr Q15H1M PRN IV Per Protocol; Start 08/23/17 at 17:12; Status Cancel Iohexol (Omnipaque 350 Inj) 75 ml STK-MED ONCE IVCONTRAST Last administered on 08/23/17 17:23; Start 08/23/17 at 17:23; Stop 08/23/17 at 17:24; Status DC Amiodarone HCl 450 mg/Dextrose 250 ml @ 33.33 mls/ hr Q7H31M PRN IV Per Protocol Last administered on 08/26/17 01:32; Start 08/23/17 at 17:30 Heparin Sodium/ Dextrose 250 ml @ 10 mls/hr TITRATE PRN IV Coagulation management Last administered on 08/25/17 11:48; Start 08/23/17 at 17:45 Furosemide (Lasix Inj) 60 mg NOW ONCE IV PUSH Last administered on 08/23/17 22:16; Start 08/23/17 at 21:19; Stop 08/23/17 at 21:20; Status DC Amiodarone HCl 150 mg/Dextrose 100 ml @ 100 mls/hr Q1H ONCE IV Last administered on 08/24/17 09:48; Start 08/24/17 at 09:07; Stop 08/24/17 at 10:06 ; Status DC Magnesium Sulfate/ Dextrose 100 ml @ 100 mls/hr Q1H IV Last administered on 11:02; Start 08/24/17 at 10:00; Stop 08/24/17 at 11:59; Status DC Potassium Chloride 100 ml @ 50 mls/hr BOLUS ONCE IV Last administered on 08/24 10:02; Start 08/24/17 at 09:15; Stop 08/24/17 at 11:14; Status DC Heparin Sodium/ Sodium Chloride 1,000 ml @ As Directed STK-MED ONCE .ROUTE Last administered on 08/25/17 20:33; Start 08/25/17 at 20:33; Stop 08/25/17 at 20:34; Status DC Fentanyl Citrate (fentaNYL INJ) 100 mcg STK-MED ONCE .ROUTE Last administered on 08/25/17 20:51; Start 08/25/17 at 20:35; Stop 08/25/17 at 20:36; Status DC Midazolam HCl (Versed Inj) 5 mg STK-MED ONCE .ROUTE Last administered on 20:50; Start 08/25/17 at 20:35; Stop 08/25/17 at 20:36; Status DC Heparin Sodium (Porcine) (Heparin Inj) 10,000 units STK-MED ONCE .ROUTE Last administered on 08/25/17 21:03; Start 08/25/17 at 21:02; Stop 08/25/17 at 21:03 ; Status DC Protamine Sulfate (Protamine Sulfate Inj) 50 mg STK-MED ONCE .ROUTE Last administered on 08/25/17 21:33; Start 08/25/17 at 21:32; Stop 08/25/17 at 21:33 ; Status DC Sodium Chloride 500 ml @ 100 mls/hr Q5H IV Last administered on 08/26/17 03: 00; Start 08/25/17 at 22:00; Stop 08/26/17 at 21:59 Urinary Catheter: No Vascular Central Line Catheter: No A/P Assessment and Plan Assessment: 67-year-old male with past medical history of hypothyroidism and hypertension who presents with new onset tachydysrhythmia, which is either A. fib/flutter with aberrancy versus slow V. tach. Clinically his end-organ function is improving. He is out of shock. His troponins are downtrending. He will need ongoing work-up for his new-onset dysrhythmia. will transition off amiodarone infusion this afternoon. appreciate cardiology input. could leave the ICU as early as today or tomorrow. Highly complex with multiple medical problems ongoing. Plan by systems: Neurologic: - Avoid long-acting sedating meds - Follow up CT head Respiratory: - Aggressive pulmonary toilet - Wean oxygen by nasal cannula for goal SPO2 greater than 92% - CT pulmonary angiogram negative for PE Cardiovascular: Cardiogenic shock- resolved. Elevated troponin, possible NSTEMI Acute CHF exacerbation, new, systolic type New-onset tachydysrhythmia: afib/flutter with aberrancy vs. v tach - echo 08/23: ef 30-35%, mild pulmonary htn, RVSP 35. no RWMA - Trend troponins, downtrending. - continue heparin drip for afib and r/o NSTEMI. - Cardiology consulted. Dr. Duarte planning cardiac catheterization 08/25 - Continue amiodarone infusion-cardiology to decide switching to by mouth - Monitor on telemetry. - hold off on additional forced diuresis. patient appears currently euvolemic. HAD CARDIAC CATH ON 08-25 SHOWED MODERATE CAD, SHOWED MODERATE-SEVERE LV DYSFUNCTION TO GO FOR EP STUDY ON 08-26 Renal: Acute kidney injury- resolved. -- Strict I/Os - Trend creatinine - Renal function likely secondary to cardiogenic shock: renal function has improved as shock has improved. FEN/GI: congestive hepatopathy- resolving. Intravascular volume overload- resolving. Hyperkalemia- resolved. Hypervolemic hyponatremia- resolving. Nausea/vomiting- resolved. - His symptoms nausea and vomiting are likely secondary to congestive hepatopathy secondary to cardiogenic shock, and his n/v symptoms have resolved. - liver ultrasound 08/23 normal - hepatitis panel pending. - Daily BMP, LFTs, coags - Zofran when necessary for nausea Heme/ID: Leukocytosis- likely reactive, improving. - Daily CBC - No infectious etiology suspected this time - Does not meet transfusion triggers Endocrine: Hypothyroidism --RESTART SYNTHROID 88MCG DAILY Prophylaxis: GI Prophylaxis - Pepcid DVT Prophylaxis -- SCDs - heparin drip Lines: Peripheral IVs FOR EPS TODAY 08-26 [facility] RN AND PT AND AM LABS Discharge Planning AWAIT EPS Franco Sauer DO Aug 26, 2017 08:50
[2017-08-26] MEDS: DOCUSATE SODIUM 50 MG/SENNA 8.6 MG TAB PO SCH ×2 (09:45→22:59)
[2017-08-26] MEDS: LEVOTHYROXINE SODIUM 88 MCG TAB PO SCH (09:45)
[2017-08-26] MEDS: FAMOTIDINE 20 MG TAB PO SCH ×2 (09:45→22:59)
[2017-08-26] MEDS: SODIUM CHLORIDE 0.9% FLUSH 10 ML FLUSH IV FLUSH SCH ×2 (09:46→21:00)
--- NOTE | 2017-08-26 09:53 | MA ---
cc: SIMEON NARAYANAN DATE: 08/25/2017 INDICATION Wide complex tachycardia, cardiomyopathy, congestive heart failure, [id number] myocardial infarction. PROCEDURE PERFORMED Retrograde left and right heart catheterization with left ventriculography, selective angiography and thermodilution cardiac output examination and saturation runs to evaluate for cardiac shunt. ACCESS SITE Right femoral artery and right femoral vein. EQUIPMENT USED [place] catheter. 5 [place] sheath. 5 [place] pigtail catheter. 5 [place] JL4 and AR modified coronary artery catheters. MEDICATIONS Versed IV, fentanyl IV. CONTRAST Omnipaque 70 cc. COMPLICATIONS None. ESTIMATED BLOOD LOSS Less than 10 cc. METHOD OF HEMOSTASIS Vascade closure and manual compression. RESULTS HEMODYNAMICS Mean pulmonary capillary wedge pressure 13 mmHg. Mean pulmonary artery 34/14/23. Right ventricle 34/7. Mean right atrial pressure 10 mmHg. Left ventricular end-diastolic pressure 12 mmHg. Left ventricle 120/12. Aorta 120/73/92. Cardiac output by thermodilution 6.2 liters per minute. Pulmonary artery saturation 82.1, aorta 97.3, right ventricle 80.5, right atrium 82.3. No evidence of [id number] shunt. LEFT VENTRICULOGRAPHY Left ventricular ejection fraction 30%. Wall motion moderate to severe global hypokinesis. No mitral regurgitation seen. CORONARY ANGIOGRAPHY The left main coronary artery is patent. The left anterior descending artery has 50% focal stenosis in the midportion. The vessel is diffusely calcified. The first, second, third and fourth diagonal arteries are small and patent. The left circumflex artery is a very large dominant vessel with 30% stenosis in the midportion. OM1 is patent. OM2 is patent. Left PDA is patent. The right coronary artery is a small nondominant vessel which is patent. DIAGNOSIS 1. Moderate nonobstructive coronary artery disease. 2. Moderate to severe left ventricular systolic dysfunction. 3. No evidence of pulmonary hypertension. 4. No evidence of cardiac shunt. DISPOSITION Mr. Burch will be monitored on telemetry after his procedure. Will proceed with electrophysiology study and possible ICD placement tomorrow. MD BRENTON Fitzgerald/BROCK /9:41 PM /9:24 AM
[2017-08-26] MEDS ORDERED: MIDAZOLAM HCL 2 MG/2 ML VIAL IV ONE (12:00)
[2017-08-26] MEDS ORDERED: PROPOFOL 200 MG/20 ML AMP IV ONE (12:00)
[2017-08-26] MEDS ORDERED: PHENYLEPH/NS 1000 MCG/10 ML SYR IV ONE (12:00)
--- NOTE | 2017-08-26 12:18 | PD.CARD.PN ---
Subjective Subjective Remarks No CP or SOB, cath with moderate nonobstructive CAD and mod to severe LV dysfx ( EF 30%). Objective Medications Administered Medications Medications (Trade) Dose Ordered Sig/Deepthi Route PRN Reason Start Time Stop Time Status Last Admin Dose Admin Sodium Chloride (NS Flush) 2 ml BID IV FLUSH 08/23/17 21:00 08/26/17 09:46 Famotidine (Pepcid) 20 mg Q12HR PO 08/23/17 21:00 08/26/17 09:45 Chlorhexidine Gluconate (Chlorhexidine 2% Cloth) 3 pack Taper DAILY@04 TOP 08/24/17 04:00 08/20/18 03:59 08/25/17 04:00 Senna/Docusate Sodium (Justine-Colace) 1 tab BID PO 08/23/17 21:00 08/26/17 09:45 Amiodarone HCl 450 mg/Dextrose 250 ml @ 33.33 mls/ hr Q7H31M PRN IV Per Protocol 08/23/17 17:30 08/26/17 01:32 Heparin Sodium/ Dextrose 250 ml @ 10 mls/hr TITRATE PRN IV Coagulation management 08/23/17 17:45 08/25/17 11:48 Sodium Chloride 500 ml @ 100 mls/hr Q5H IV 08/25/17 22:00 08/26/17 21:59 08/26/17 03:00 Levothyroxine Sodium (Synthroid) 88 mcg DAILY@0600 PO 08/26/17 09:00 08/26/17 09:45 Vital Signs / I&O Vital Signs Date Time Temp Pulse Resp B/P (MAP) Pulse Ox O2 Delivery O2 Flow Rate FiO2 08/26/17 11:00 98 Nasal Cannula 2.00 08/26/17 11:00 61 08/26/17 11:00 69 20 119/75 (90) 98 08/26/17 10:03 63 08/26/17 09:00 71 08/26/17 08:00 68 08/26/17 07:00 98.2 71 20 128/73 (91) 96 08/26/17 07:00 96 Nasal Cannula 2.00 08/26/17 07:00 75 08/26/17 06:00 64 08/26/17 05:00 73 08/26/17 04:00 98.2 67 18 125/71 (89) 94 08/26/17 04:00 66 08/26/17 03:59 97 Nasal Cannula 2.00 08/26/17 03:00 67 08/26/17 02:00 67 08/26/17 01:32 70 08/26/17 01:02 66 08/26/17 00:00 66 08/25/17 23:55 97 Nasal Cannula 2.00 08/25/17 23:45 98.5 65 18 121/77 (92) 97 08/25/17 23:00 65 08/25/17 22:00 89 Room Air 08/25/17 22:00 72 08/25/17 22:00 98.5 72 18 132/75 (94) 89 08/25/17 20:00 77 08/25/17 20:00 92 Nasal Cannula 1.00 08/25/17 19:46 99.5 77 20 140/80 (100) 92 08/25/17 19:00 78 08/25/17 18:00 84 08/25/17 17:00 82 08/25/17 16:00 78 08/25/17 16:00 98.0 78 18 126/77 (93) 95 08/25/17 16:00 96 Nasal Cannula 2.00 08/25/17 15:00 76 08/25/17 14:00 76 08/25/17 13:00 72 I/O 08/25/17 08/25/17 08/25/17 08/26/17 08/26/17 08/26/17 07:00 15:00 23:00 07:00 15:00 23:00 Intake Total 571 ml 1662 ml 132 ml Output Total 1100 ml 525 ml 725 ml Balance -529 ml 1137 ml -593 ml Intake Oral 240 ml 240 ml 30 ml IV Total 331 ml 1422 ml 102 ml Output Urine Total 1100 ml 525 ml 725 ml # Bowel Movements 0 0 0 Physical Exam GENERAL: In NAD. SKIN: Warm and dry. HEAD: Normocephalic. EYES: No scleral icterus. No injection or drainage. NECK: Supple, trachea midline. No JVD or lymphadenopathy. CARDIOVASCULAR: Regular rate and rhythm without murmurs, gallops, or rubs. RESPIRATORY: Breath sounds equal bilaterally. No accessory muscle use. GASTROINTESTINAL: Abdomen soft, non-tender, nondistended. MUSCULOSKELETAL: No cyanosis, trace edema. Groin stable. Laboratory Laboratory Tests Test 08/26/17 04:54 08/26/17 04:56 White Blood Count 13.7 TH/MM3 Red Blood Count 4.18 MIL/MM3 Hemoglobin 13.6 GM/DL Hematocrit 38.8 % Mean Corpuscular Volume 92.8 FL Mean Corpuscular Hemoglobin 32.4 PG Mean Corpuscular Hemoglobin Concent 34.9 % Red Cell Distribution Width 12.0 % Platelet Count 205 TH/MM3 Mean Platelet Volume 7.8 FL Blood Urea Nitrogen 10 MG/DL Creatinine 0.61 MG/DL Random Glucose 97 MG/DL Total Protein 6.4 GM/DL Albumin 2.9 GM/DL Calcium Level 8.4 MG/DL Alkaline Phosphatase 45 U/L Aspartate Amino Transf (AST/SGOT) 14 U/L Alanine Aminotransferase (ALT/SGPT) 16 U/L Total Bilirubin 1.4 MG/DL Direct Bilirubin 0.5 MG/DL Sodium Level 132 MEQ/L Potassium Level 4.1 MEQ/L Chloride Level 99 MEQ/L Carbon Dioxide Level 25.0 MEQ/L Anion Gap 8 MEQ/L Estimat Glomerular Filtration Rate 131 ML/MIN Indirect Bilirubin 0.9 MG/DL Triglycerides Level 80 MG/DL Cholesterol Level 103 MG/DL LDL Cholesterol 43 MG/DL HDL Cholesterol 43.6 MG/DL Cholesterol/HDL Ratio 2.36 RATIO Prothrombin Time 11.7 SEC Prothromb Time International Ratio 1.1 RATIO Activated Partial Thromboplast Time 26.8 SEC Assessment and Plan Problem List: (1) Wide-complex tachycardia ICD Codes: I47.2 - Ventricular tachycardia (2) Cardiomyopathy ICD Codes: I42.9 - Cardiomyopathy, unspecified (3) CHF (congestive heart failure) ICD Codes: I50.9 - Heart failure, unspecified (4) Atrial fibrillation ICD Codes: I48.91 - Unspecified atrial fibrillation (5) HTN (hypertension) ICD Codes: I10 - Essential (primary) hypertension (6) Renal insufficiency ICD Codes: N28.9 - Disorder of kidney and ureter, unspecified (7) NSTEMI (non-ST elevated myocardial infarction) ICD Codes: I21.4 - Non-ST elevation (NSTEMI) myocardial infarction Assessment and Plan No angina. Cath with mod CAD, EF 30%, mod to severe global hypokinesis. Continue amio for susp VT and AF. Monitor renal fx. Proceed with EPS today, if positive for VT/VF, will place ICD, otherwise place a LifeVest for 3 months and subsequently retest. D/w pt and , they wish to proceed. Erika Duarte MD Aug 26, 2017 12:18
[2017-08-26] MEDS ORDERED: IOHEXOL 350 MG/ML 100 ML BTL (for Cath Lab) OTHER ONE (12:40)
[2017-08-26] MEDS ORDERED: HEPARIN-NS/PF INJ 1,000 ML ONE (18:04)
[2017-08-26] MEDS ORDERED: LIDOCAINE HCL 2% 50 ML VIAL ONE (18:05)
[2017-08-26] MEDS ORDERED: VANCOMYCIN HCL 1000 MG VIAL ONE (18:05)
[2017-08-26] MEDS ORDERED: ceFAZolin INJ 1,000 MG VIAL ONE (18:05)
[2017-08-26] MEDS ORDERED: VANCOMYCIN 500 MG VIAL ONE (18:05)
[2017-08-26] MEDS ORDERED: ISOPROTERENOL HCL 1 MG/5 ML AMP ONE (18:25)
[2017-08-26] MEDS ORDERED: SODIUM CHLOR 0.9% 250 ML INJ 250 ML ONE (18:27)
--- NOTE | 2017-08-26 19:23 | CATHPROC ---
[facility] HIS Report Study Information Study Number Admission Scheduled Start Study Start [id number] Aug 23 2017 4:22PM 08/26/2017 Aug 26 2017 5:28PM [place] [facility] Cardiac Pacer/ICD Admit Source Facility Department Other [facility] - [employer] Physician and Clinical Staff Initial Erika Martinez Threading Machine Tender Yony Watson,RT(R) Other Anesthesia, FOAM GUN OPERATOR Recorder Carmela Seymour,OLAF Scrub Mable Barrios RCIS Equipment Time Office Helper Description Size Mfg Part Number Used/Scraped 17:32 CONMED LEADWIRE, DEFIBRILLATION PAD 2001M-PC Used [id number] 17:32 MEDLINE INDUSTRIES PACK, CCL CUSTOM * Used *[id number] 17:32 MEDLINE PACER LIEBERMAN, LIMB * 2530 *[id number] Used [id number] 17:32 BHAT[employer] MEDICAL BLANKET,WARM AIR CCL * Used *[id number] 18:45 [employer] MEDICAL CATHETER, JSN, QUAD FR 5 Used *[id number] 18:45 [employer]IR[employer] MEDICAL CATHETER, JSN, QUAD FR 5 Used *[id number] 18:45 [employer]IRA MEDICAL CATHETER, JSN, QUAD FR 5 Used *[id number] 077417 18:50 [employer]IRA MEDICAL CATHETER, JSN, QUAD FR 5 Used *[id number] 17:32 [employer]IRA MEDICAL ELECTRODE KIT, EDWARD X SURFACE * [id number] [employer] MEDICAL SHEATH, EPS, FR7 FAST CATH FR 7 [id number] Used 18:45 [employer]IRA MEDICAL SHEATH, EPS, FR7 FAST CATH FR [id number] Used 18:45 [employer]A MEDICAL SHEATH, EPS, FR7 FAST CATH FR [address] [id number] Used 18:48 [employer]A MEDICAL SHEATH, EPS, FR7 FAST CATH FR 7 [id number] Used [place] PAD, ELECTROSURGICAL 17:32 * [id number] *[id number] Used SURGICAL GROUNDING (BLUE) [place] PAD, ELECTROSURGICAL 17:32 * [id number] *[id number] Used SURGICAL GROUNDING (BLUE) History: Allergies Allergy Reaction No Known Allergies History: Risk Factors Hypertension Yes Labs Hgb (g/dl) Hct (%) WBC (l/cumm) Platelets (thousands) 11.60-17.00 35.00-51.00 4.00-11.00 150.00-450.00 13.0 38 13.7 205 Glucose (mg/dl) BUN (mg/dl) Creatinine (mg/dl) BUN:Creatinine (1:x) 74.00-106.00 7.00-18.00 0.50-1.30 10.00-20.00 97 10 0.6 16.7 Na (meq/l) K (meq/l) 136.00-145.00 3.50-5.10 132 4.1 INR (PTT:PT) 0.90-1.10 1.1 Medication Medication Total Dose (Bolus/Oral) Medication Total Dosage/Unit 1% XYLOCAINE 20 mL Medications (Bolus/Oral) Medication Time Given Dosage/Unit Administered By Reason 1% XYLOCAINE 08/26/2017 6:40:42 PM 20 mL Erika Duarte 20 mL 1% XYLOCAINE given by Erika Duarte in Right Groin via Subcutaneous. Initial Case Assessment Cardiovascular HR Rhythm NIBP Chest Pain 72 sr 134/82 0 Edema Present Skin color Skin None Normal Warm Dry Circulatory - Right Pulses Dorsalis Pedis Radial 3 3 Scale (0,1,2,3,4,d) Circulatory - Left Pulses Dorsalis Pedis Radial 3 3 Scale (0,1,2,3,4,d) Circulatory - Lower Extremities Color Lower Right Color Lower Left Normal Normal Neurological State Oriented to time-place- Alert Moves all extremities person Respiration - General Respiration Rate SpO2 (%) (B/min) 20 97 Chronological Log Time Study Chronological Log 18:10:18 Patient arrived via Bed. 18:10:22 Patient Name, D.O.B, / Armband Verified By R.N. 18:10:26 Consent signed by the physician and the patient and verified by the [employer] staff. 18:10:29 Pre-op and post- op instructions given; patient acknowledges understanding of instructions. 18:10:36 Amiodarone off per MD order. 18:10:44 Anesthesia at bedside. Assumes care of patient. 18:10:48 Patient has been NPO for More than 6Hrs. 18:11:34 Verbal Stimulation=2 Physical Stimulation=2 Airway=2 Respiration=2 TOTAL=8. (0=absent, 1=li mited, 2=present) 18:12:51 Skin Breakdown- none per pt 18:12:58 Patient Warmer Placed on the Table. 18:12:58 Disposable Defibrillator Pads Placed On Patient. 18:12:59 Zeinab Prominences Protected 18:13:01 A # 20 IV was noted in the Wrist (right). Grade = 0 0.9ns kvo 18:13:02 A # 20 IV was noted in the Antecubital (left). Grade = 0 0.9ns kvo 18:13:03 History and physical on the chart or being dictated. 18:29:10 2% CHLORHEXIDINE GLUCONATE WASH AND NASAL SWIPE DONE PRIOR TO PROCEDURE. 18:29:11 Bovie ground pad applied to: right upper thigh Assessment: Initial Case, HR=72 BPM, Rhythm=sr, UDFP=901/82 mmhg, Chest Pain=0, Edema=None, Col or=Normal, Skin = Warm, Dry Right Pulses: Stevenson Ped=3, Radial=3 Left Pulses: Stevenson Ped=3, Radial=3 18:29:28 Lower Right Extremities: Color=Normal Lower Left Extremities: Color=Normal Neurological: State=Alert, Ox3, BELL Respiration: Resp=20 B/min, SpO2=97 % 18:30:40 Table restraints applied according to hospital policy 18:30:45 Bilateral groins prepped with 2% chlorhexidine, and draped after a 3 minute waiting time. 18:31:43 MD arrived. Time Out. Correct patient, procedure, procedure equipment, site and side verified with physicia n present. Time 18:40:00 concurred by MD, individual staff and FOAM GUN OPERATOR. Time Out #2 - Consents verified, patient in correct position, all results are labled and displa yed, safety precautions 18:40:16 taken, antibiotics administered. Time out concurred by MD, individual staff and FOAM GUN OPERATOR in procedu re 18:40:29 Case Start 18:40:42 20 mL 1% XYLOCAINE given by Erika Duarte in Right Groin via Subcutaneous. 18:42:36 Reference ECG taken 18:42:40 Vascular access was obtained in the Fem Vein (left). 18:43:00 Vascular access was obtained in the Fem Vein (left). 18:43:53 Vascular access was obtained in the Fem Vein (left). 18:44:11 A SHEATH, EPS, FR7 FAST CATH FR 7 was advanced into the Fem Vein (left) using the Modified Seldinger technique. 18:45:12 A SHEATH, EPS, FR7 FAST CATH FR 7 was advanced into the Fem Vein (left) using the Modified Seldinger technique. 18:45:14 A SHEATH, EPS, FR7 FAST CATH FR 7 was advanced into the Fem Vein (left) using the Modified Seldinger technique. 18:45:26 A SHEATH, EPS, FR7 FAST CATH FR 7 was advanced into the Fem Vein (left) using the Modified Seldinger technique. A CATHETER, JSN, QUAD FR 5 was advanced vis Fem Vein (left) and placed in the CS. Placement was visually 18:45:43 confirmed under fluoroscopy. A CATHETER, JSN, QUAD FR 5 was advanced vis Fem Vein (left) and placed in the HIS. Placement wa s visually 18:45:55 confirmed under fluoroscopy. A CATHETER, JSN, QUAD FR 5 was advanced vis Fem Vein (left) and placed in the CS. Placement was visually 18:49:22 confirmed under fluoroscopy. A CATHETER, JSN, QUAD FR 5 was advanced vis Fem Vein (left) and placed in the HRA. Placement wa s visually 18:49:36 confirmed under fluoroscopy. 18:55:50 EPS in progress. 19:19:40 EPS complete 19:20:47 Quad Catheters removed without difficulty 19:22:04 Sheath(s) left in place, secured, 0.9ns kvo connected and will be removed in Holding Area 19:22:29 Sterile dressing applied to site 19:22:30 Case End 19:22:31 No case complications noted. 19:22:32 Cine recording checked. 19:22:38 NOTE: This patient is undergoing an additional procedure while still in the Cardiac Cath La b. 19:22:41 Initial procedure has been completed. Beginning additional procedure. End Study - Contrast Media Used In Study Contrast Total Opened (mL) Total Used (mL) Total Wasted (mL) Unspecified 0 0 0 End Study - Maximum Contrast Load Max Contrast Load (mL) 833.3 End Study - Radiation Exposure Fluoro Time (minutes) 2.3 End Study - Patient Disposition Complications Transferred To Interventional Outcome No [employer] Holding successful
[2017-08-26] MEDS ORDERED: PILL SPLITTER OTHER PRN (19:45)
[2017-08-26] MEDS ORDERED: PROPOFOL 200 MG/20 ML AMP ONE (20:21)
--- NOTE | 2017-08-26 21:10 | CATHPROC ---
[facility] HIS Report Study Information Study Number Admission Scheduled Start Study Start [id number] Aug 23 2017 4:22PM 08/26/2017 Aug 26 2017 7:24PM [place] [facility] Electrophysiology Study Admit Source Facility Department Other [facility] - [employer] Physician and Clinical Staff Initial Erika Martinez Card Placer Mable Barrios,SAAD Other Anesthesia, VMWARE ARCHITECT Recorder Carmela Seymour,RN Scrub Yony Watson,RT(R) Procedures Performed Procedure Lead Insertion Equipment Time Information Technology Administrator Description Size Mfg Part Number Used/Scraped 19:25 [employer]. MEDICAL DRAPE, [place] X-RAY 12X17 12X17 D-100 *[id number] Used 20:15 ANGIO-DYNAMICS LEAD, TENDRIL MRI 46CM [id number] Used MPIS-502-10.0- INTRODUCER SET, 19:25 [employer]OOK INC. FR 5 SC-NT-U-SST Used MICROPUNCTURE, STIFFENED *[id number] MPIS-502-10.0- INTRODUCER SET, 19:25 [employer] INC. FR 5 SC-NT-U-SST Used MICROPUNCTURE, STIFFENED *[id number] 19:57 Nellix DRAPE, IOBAN 2 6661EZ 26cm x 20cm Used *[id number] 6661EZ 19:25 Nellix DRAPE, IOBAN 2 6661EZ 26cm x 20cm Used *[id number] TP-1103 19:25 Nellix SUTURE, STRIP PLUS 1/2" * Used *[id number] 19:25 MEDLINE PACER ADHESIVE, MASTISOL 2/3CC 2/3CC 0523-48 Used 19:25 MEDLINE PACER LIEBERMAN, LIMB * 2530 *[id number] Used [id number] 19:25 MEDLINE PACER PACK, PACER CUSTOM * Used *[id number] 19:25 MEDLINE PACER PEN, SKIN DUAL W/ RULER * Used *[id number] 20:20 Jamplify PACER SAFE SHEATH, FR8, 13CM FR 8 CLS-1008 Used 20:21 OpenTable MEDICAL PACER SAFE SHEATH, FR8, 13CM FR 8 CLS-1008 Used PROBE COVER, STERILE [id number] 19:25 Appy Pie MEDICAL * Used ULTRASOUND W/ GEL *[id number] 19:44 Needle Sponge Count 4 44 Used [id number] *[id number] SUTURE, 0 ETHIBOND [CT1] (CX21D), 8pk SUTURE, 2-0 VICRYL [CT1] (YIL368U) SUTURE, 2-0 VICRYL [CT1] (MFJ023A) SUTURE, 4-0 VICRYL [PS2] (OZO332Y) [id number] 19:25 BHATTI MEDICAL BLANKET,WARM AIR CCL * Used *[id number] 20:26 [facility] [employer] MEDICAL DEFIBRILLATOR, YAJAIRA OCHOA VVEDDDDR [id number] Used LEAD, DURATA ACTIVE FIXATION 20:07 [employer]. AMIRA MEDICAL 65CM 7120Q/65CM Used 7120Q/65 [facility] PAD, ELECTROSURGICAL 19:25 * [id number] *[id number] Used SURGICAL GROUNDING ORANGE 1513-7782 19:25 ZOLL MEDICAL MCKENZIE. / * Used *[id number] Equipment Model, Serial, Lot Number and Expiration Data Description Model Number Serial Number Lot Number Expiration Date DEFIBRILLATOR, YAJAIRA OCHOA [id number] 05-16-2019 LEAD, DURATA ACTIVE FIXATION 7120q-65 [id number] 08-16-2018 7120Q/65 LEAD, TENDRIL MRI [id number] 10-16-2017 History: Allergies Allergy Reaction No Known Allergies Medication Medication Total Dose (Bolus/Oral) Medication Total Dosage/Unit 2% XYLOCAINE 50 mL Medications (Bolus/Oral) Medication Time Given Dosage/Unit Administered By Reason 2% XYLOCAINE 08/26/2017 7:53:42 PM 50 mL Anesthesia, VMWARE ARCHITECT 50 mL 2% XYLOCAINE given in lab by Anesthesia, VMWARE ARCHITECT in Left upper chest via Subcutaneous. Ordered by Erika Duarte. Medication (Drip) Medication Time Given Dosage/Unit Concentration/Unit Diluent (ml) Solution ANCEF 08/26/2017 7:18:38 PM 1 g 1 g ANCEF given in lab by Anesthesia, VMWARE ARCHITECT via Peripheral IV. Ordered by Erika Duarte. Reason: As per physicians verbal order. VANCOMYCIN DRIP 08/26/2017 7:18:32 PM 1 g 1 g VANCOMYCIN DRIP given in lab by Anesthesia, VMWARE ARCHITECT via Peripheral IV. Ordered by Erika Duarte. R nilson: As per physicians verbal order. Final Case Assessment Cardiovascular HR Rhythm NIBP Chest Pain 60 sr 106/70 0 Edema Present Skin color Skin None Normal Warm Dry Circulatory - Right Pulses Posterior Tibial Radial 2 2 Scale (0,1,2,3,4,d) Circulatory - Left Pulses Posterior Tibial Radial 2 2 Scale (0,1,2,3,4,d) Circulatory - Lower Extremities Color Lower Right Color Lower Left Normal Normal Neurological State Oriented to time-place- Lethargic Moves all extremities person Respiration - General Respiration Rate SpO2 (%) O2 (lpm) (B/min) 16 96 4 Chronological Log Time Study Chronological Log 1 g VANCOMYCIN DRIP given in lab by Anesthesia, VMWARE ARCHITECT via Peripheral IV. Ordered by Julián Duarte. Reason: As 19:18:32 per physicians verbal order. 1 g ANCEF given in lab by Anesthesia, VMWARE ARCHITECT via Peripheral IV. Ordered by Eriak Duarte. Reas on: As per physicians 19:18:38 verbal order. 19:22:59 NOTE: This patient is undergoing an additional procedure while still in the Cardiac Cath L ab. 19:25:18 Anesthesia remains at bedside. Assuming care of patient. Eran 19:36:20 Upper Chest Prepped Times Two. First Sponge And Instrument Count Done by Anesthesia, VMWARE ARCHITECT. 19:44:22 Hypo's: 6 hypo's, Sponges: 30 sponges, Bovie/scratch: 2 bovie/scratch Sutures: 11, Blades: 2, Instruments: 26, Syveck Patches: 0 Hypo's=6, Sponges=30, Bovie/S Time Out. Correct patient, procedure, procedure equipment, site and side verified with physici an present. Time 19:53:00 concurred by MD, individual staff and VMWARE ARCHITECT. Time Out #2 - Consents verified, patient in correct position, all results are labled and displ ayed, safety precautions 19:53:13 taken, antibiotics administered. Time out concurred by MD, individual staff and VMWARE ARCHITECT in proced ure 19:53:19 Reference ECG taken 19:53:26 Case Start 50 mL 2% XYLOCAINE given in lab by Anesthesia, VMWARE ARCHITECT in Left upper chest via Subcutaneous. Orde red by Felicia, 19:53:42 Erika. 19:56:44 Surgical Incision Made. 19:57:36 A pocket was created at the L Upper Chest. 20:05:39 Vascular access was obtained in the Subclav. Vein (Lft. micropuncture 20:06:01 Wire inserted 20:06:23 Vascular access was obtained in the Subclav. Vein (Lft. micropuncture 20:06:33 Wire inserted A INTRODUCER SET, MICROPUNCTURE, STIFFENED FR 5 was advanced into the Subclav. Vein (Lft using the Modified 20:10:08 Seldinger technique. A INTRODUCER SET, MICROPUNCTURE, STIFFENED FR 5 was advanced into the Subclav. Vein (Lft using the Modified 20:10:19 Seldinger technique. A SAFE SHEATH, FR8, 13CM FR 8 was exchanged in the Subclav. Vein (Lft. This was necessary in or lucy for catheter 20:10:24 support. 20:10:28 A LEAD, DURATA ACTIVE FIXATION 7120Q/65 65CM was inserted and positioned in the RV. 20:12:59 Lead placement verified under fluoroscopy 20:13:01 The RV lead impedance and threshold being tested. 20:13:02 The RV lead was sutured to the fascia. A SAFE SHEATH, FR8, 13CM FR 8 was exchanged in the Subclav. Vein (Lft. This was necessary in or lucy for catheter 20:19:21 support. 20:22:21 Two antibiotic sponges put into the surgical pocket. 20:22:59 A LEAD, TENDRIL MRI 46CM was inserted and positioned in the RA. 20:23:16 Lead placement verified under fluoroscopy 20:23:18 The Atrial lead impedance and threshold is being tested. 20:25:41 A DEFIBRILLATOR, ELLIPSE DR VVEDDDDR was connected and placed in the pocket. 20:29:03 Antibiotic sponges removed from the surgical pocket. 20:36:48 The DFT was Success at 20 Joules, 40 Ohms lead impedance and 4 ms charge time. Second Sponge And Instrument Count Done by Yony Watson RT(R). 20:41:03 Hypo's: 6 hypo's, Sponges: 40 sponges, Bovie/scratch: 2 bovie/scratch Sutures: 11, Blades: 2, Instruments: 26, Syveck Patches: 0 Verified w MM 20:54:26 The pocket was closed. Final Sponge And Instrument Count Done by Yony Watson RT(R). 20:57:18 Hypo's: 6 hypo's, Sponges: 40 sponges, Bovie/scratch: 2 bovie/scratch Sutures: 11, Blades: 2, Instruments: 26, Syveck Patches: 0 Verified w MM 20:58:02 Implant Procedure was performed. 20:58:10 A ICD Implant . (Dual) 20:59:31 CPCU called. Spoke to Matt Assessment: Final Case, HR=60 BPM, Rhythm=sr, ESUS=375/70 mmhg, Chest Pain=0, Edema=None, Color =Normal, Skin = Warm, Dry Right Pulses: Post Tib=2, Radial=2 Left Pulses: Post Tib=2, Radial=2 21:03:32 Lower Right Extremities: Color=Normal Lower Left Extremities: Color=Normal Neurological: State=Lethargic, Ox3, BELL Respiration: Resp=16 B/min, SpO2=96 %, O2=4 lpm 21:05:45 Case End 21:05:57 Left groin sheaths removed; pressure applied to access sites by DB. 21:09:43 No case complications noted. 21:09:49 Cine recording checked. 21:16:24 Sterile dressing applied to left fem site 21:19:54 Patient moved to stretcher 21:20:09 A sling was placed on the affected arm. End Study - Contrast Media Used In Study Contrast Total Opened (mL) Total Used (mL) Total Wasted (mL) Unspecified 0 0 0 End Study - Radiation Exposure Fluoro Time (minutes) 0.3 End Study - Sheaths Sheaths Pulled By Sheath Hold Time (min) Yony Watson 10 End Study - Patient Disposition Complications Transferred To Interventional Outcome No Telemetry Bed successful
[2017-08-26] MEDS: CARVEDILOL 3.125 MG TAB PO SCH (22:59)
[2017-08-26] MEDS: AMIODARONE 200 MG TAB PO SCH (22:59)
[2017-08-27] VITALS (27 sets, daily range): BP systolic 108–132; BP diastolic 58–74; PULSE 64–88; RESP 14–21; TEMP 98–98.7; O2SAT 92–96
--- NOTE | 2017-08-27 | RADRPT ---
EXAM DATE/TIME: 08/26/2017 22:55 [place] COMPARISON: CHEST SINGLE AP, August 23, 2017, 15:10. INDICATIONS : Pacemaker placement, rule out pneumonia. MEDICAL HISTORY : None. SURGICAL HISTORY : None. ENCOUNTER: Subsequent ACUITY: 3 days PAIN SCORE: 0/10 LOCATION: Bilateral chest FINDINGS: Pacemaker device is noted with control pack over the left chest. No evidence of pneumothorax or other complication of placement. Lungs remain grossly clear. Cardiac contours are grossly stable accountin g for differences in projection. CONCLUSION: Pacemaker placement without complication. Sagar Miles MD on August 26, 2017 at 23:58 Board Certified Radiologist. This report was verified electronically.
[2017-08-27] MEDS: ceFAZolin 2 GM PREMIX 50 ML IV SCH ×3 (02:22→18:30)
[2017-08-27] MEDS: CHLORHEXIDINE GLUCONATE 2 % 1 PACK (2 CLOTHS) TOP SCH (04:00)
[2017-08-27 05:28] LABS: BASOPHIL % 0.2 % (0.0-2.0); EOSINOPHIL # 0.1 TH/MM3 (0-0.4); HEMATOCRIT 38.7 % (39.0-51.0); HEMO FLAGS DIFF FINAL; LYMPH % 8.3 % (9.0-44.0); LYMPHOCYTE # 1.2 TH/MM3 (1.0-4.8); MEAN CELL VOLUME 92.8 FL (80.0-100.0); MEAN CORPUSCULAR HEMOGLOBIN 32.1 PG (27.0-34.0); MEAN CORPUSCULAR HGB CONC 34.6 % (32.0-36.0); MONO % 13.1 % (0.0-8.0); NEUT % 77.4 % (16.0-70.0); PLATELET COUNT 188 TH/MM3 (150-450); RED BLOOD COUNT 4.17 MIL/MM3 (4.50-5.90); RED CELL DISTRIBUTION WIDTH 12.1 % (11.6-17.2); WHITE BLOOD COUNT 14.2 TH/MM3 (4.0-11.0)
[2017-08-27] MEDS: LEVOTHYROXINE SODIUM 88 MCG TAB PO SCH (05:37)
[2017-08-27 05:49] LABS: ANION GAP 10 MEQ/L (5-15); APTT (PATIENT) 29.6 SEC (24.3-30.1); BICARBONATE 23.5 MEQ/L (21.0-32.0); BLOOD UREA NITROGEN 11 MG/DL (7-18); CHLORIDE 100 MEQ/L (98-107); GLOMERULAR FILTRATION RATE 131 ML/MIN (>89); INTERNATIONAL NORMALIZED RATIO 1.1 RATIO; PROTHROMBIN TIME - PATIENT 11.9 SEC (9.8-11.6); SODIUM (NA) 133 MEQ/L (136-145)
--- NOTE | 2017-08-27 05:51 | MR ---
cc: ERIKA NARAYANAN DATE 08/26/2017 INDICATION Sustained monomorphic ventricular tachycardia, spontaneous and inducible at EP study, nonischemic cardiomyopathy with moderate left ventricular systolic dysfunction. Secondary prevention. PROCEDURE PERFORMED 1. Placement of [facility] dual-chamber defibrillator. 2. Testing of [facility] [facility] defibrillator system. 3. Defibrillation threshold of 20 joules or less. ACCESS SITE Left subclavian vein. EQUIPMENT USED DEVICE: [employer]anning model [id number] dual-chamber defibrillator, serial number [id number]. Right atrial lead is [employer] Channing model [id number], 46-cm screw-in atrial lead, serial number [id number]. Right ventricular lead is a [employer] Channing model 7120Q, 65-cm screw-in ventricle lead, serial number [id number]. LEAD TESTING Right atrial lead - P-wave 1.5 mV, lead impedance 610 ohms, pacing threshold 1.25 volts at 0.5 milliseconds. Pacing at 10 volts, no diaphragmatic stimulation. Right ventricular lead - R-wave over 12 mV, lead impedance 530 ohms, pacing threshold 0.5 volts at 0.5 milliseconds. Pacing at 10 volts, no diaphragmatic stimulation. Ventricular fibrillation was induced on one occasion and terminated with a single 20-joule shock with an impedance of 40 ohms. PARAMETERS Mode DDD. Lead T-zone 160-220 beats per minute. VF-zone over 220 beats per minute. DIAGNOSES 1. Sustained monomorphic ventricular tachycardia (secondary prevention). 2. Successful placement of [facility] dual chamber defibrillator. 3. Successful testing of [facility] defibrillator system. 4. Defibrillation threshold of 20 joules or less. DISPOSITION 1. Mr. Burch will be monitored on telemetry after this procedure. 2. We will continue therapy for congestive heart failure. 3. We will also continue therapy with amiodarone. 4. He will be scheduled for a wound check and coronary device reprogramming in our office within two weeks. Erika Narayanan MD OQ/SSB /8:42 PM /5:31 AM
[2017-08-27 05:58] LABS: ALKALINE PHOSPHATASE 46 U/L (45-117); ALT (GPT) 15 U/L (12-78); AST (GOT) 11 U/L (15-37); FREE T4 1.27 NG/DL (0.76-1.46); INDIRECT BILIRUBIN 0.8 MG/DL (0.0-0.8); TOTAL BILIRUBIN ADULT 1.2 MG/DL (0.2-1.0)
[2017-08-27] MEDS ORDERED: VANCOMYCIN INJ 1,000 MG in SODIUM CHLOR 0.9% 250 ML INJ 250 ML IV ONE (06:00)
[2017-08-27] MEDS: DOCUSATE SODIUM 50 MG/SENNA 8.6 MG TAB PO SCH ×2 (09:12→20:19)
[2017-08-27] MEDS: LISINOPRIL 5 MG TAB PO SCH (09:13)
[2017-08-27] MEDS: FAMOTIDINE 20 MG TAB PO SCH ×2 (09:13→20:19)
[2017-08-27] MEDS: SODIUM CHLORIDE 0.9% FLUSH 10 ML FLUSH IV FLUSH SCH ×2 (09:13→20:20)
[2017-08-27] MEDS: CARVEDILOL 3.125 MG TAB PO SCH ×2 (09:13→20:19)
[2017-08-27] MEDS: AMIODARONE 200 MG TAB PO SCH ×2 (09:14→20:23)
--- NOTE | 2017-08-27 09:19 | HHI.PR ---
Subjective Remarks This is a 67-year-old male with a past medical history significant for hypothyroidism and hypertension well-controlled on medication who presents with a few day history starting , 3 days prior to admission, where he started having nausea and vomiting. He states that his nausea was not associated with eating or food. It was nonbloody, nonbilious. He denies exertion worsening the symptoms. He vehemently denies chest pain, shortness of breath. Denies exertional dyspnea, and even endorsed walking 2 miles on without any difficulties, despite having nausea and vomiting. He denies ever having any past history of coronary artery disease or stroke, and denies any family history of coronary artery disease or stroke. Today his symptoms progressed and he went to an urgent care clinic where he was found to be in a wide complex tachycardia and EMS was called to bring him to the emergency department. EMS was unable to obtain a blood pressure, the patient was initially given 10 mg of Cardizem IV bolus, followed by amiodarone IV bolus , followed by adenosine, followed finally by electrical cardioversion. At this point, the patient converted into normal sinus rhythm. He was slightly hypotensive and then given 2 L normal saline bolus. Stat echo was ordered and is still pending. Troponins which were drawn before electrical cardioversion are mildly elevated at 0.45. BNP is elevated at 539. Lactate is elevated at 2.4. He has evidence of early acute kidney injury and a creatinine of 1.6. A complete review of systems is otherwise negative in this gentleman, including fever, chills, diarrhea, constipation, bloody stools, lower extremity swelling, recent flulike illnesses out to the last 6-8 months, international travel. He does have a history of prior thyroidectomy and a few months ago had a slightly elevated thyroid function levels secondary to iatrogenic hyperthyroidism, but the patient's states that his Synthroid dose was decreased and his recheck levels were within normal limits. Critical care medicine is consulted to evaluate and manage the patient's new acute dysrhythmia and shock. Subjective: 08/24: no acute events overnight. however, this morning went into afib with RVR, HR sustained 110s/120s. rebolused amiodarone, gave 2gm mgso4 and 20 meq kcl iv. end-organ perfusion is improving, renal function back to normal, bili still elevated, but lft's normalizing. net negative with single dose of lasix. 08/25: Resting in bed comfortably. Not in any acute distress. Awaiting cardiac catheterization today. HAD CATH ON 08-25 SHOWED MODERATE CAD AND MODERATE TO SEVERE LV DYSFUNCTION 08-26 TO GO FOR EP STUDY TODAY DW RN AND PT AND AM LABS RESTART HOME MEDS 08-27 HAD EP STUDY AND AICD PLACEMENT YESTERDAY NO NEW COMPLAINTS LEFT ARM IN SLING AICD SITE DRESSED WANTS TO GO HOME AICD HAS BEEN INTERROGATED ALREADY Objective Vitals Vital Signs Date Time Temp Pulse Resp B/P (MAP) Pulse Ox O2 Delivery O2 Flow Rate FiO2 08/27/17 08:00 65 08/27/17 07:30 98.5 68 20 108/58 (75) 94 08/27/17 07:30 94 Nasal Cannula 2.00 08/27/17 07:00 72 08/27/17 06:01 71 08/27/17 05:08 68 08/27/17 04:29 68 08/27/17 04:00 98.0 68 18 115/65 (82) 96 08/27/17 04:00 68 18 115/65 (82) 95 08/27/17 03:18 95 Nasal Cannula 2.00 08/27/17 03:00 69 08/27/17 03:00 98.0 66 16 124/67 (86) 96 08/27/17 02:00 67 08/27/17 02:00 65 18 111/63 (79) 95 08/27/17 01:00 72 08/27/17 01:00 70 18 108/68 (81) 95 08/27/17 00:00 77 08/27/17 00:00 98 Nasal Cannula 2.00 08/27/17 00:00 69 18 124/72 (89) 95 08/26/17 23:53 78 08/26/17 23:30 71 18 117/68 (84) 96 08/26/17 23:00 77 18 117/68 (84) 96 08/26/17 23:00 98.4 77 18 117/68 (84) 96 08/26/17 23:00 78 08/26/17 22:30 64 18 121/69 (86) 95 08/26/17 22:15 67 18 123/73 (90) 96 08/26/17 22:00 77 08/26/17 22:00 66 16 117/73 (88) 96 08/26/17 21:45 66 16 116/71 (86) 95 08/26/17 21:30 67 08/26/17 21:30 98 Nasal Cannula 2.00 08/26/17 21:30 98.1 66 16 115/67 (83) 93 08/26/17 17:08 76 120/72 08/26/17 17:00 78 08/26/17 16:00 70 08/26/17 15:05 69 08/26/17 15:05 98.1 67 19 120/72 (88) 97 08/26/17 15:00 97 Nasal Cannula 2.00 08/26/17 14:00 64 08/26/17 13:00 66 08/26/17 12:00 66 08/26/17 11:00 98 Nasal Cannula 2.00 08/26/17 11:00 61 08/26/17 11:00 69 20 119/75 (90) 98 08/26/17 10:03 63 I/O 08/26/17 08/26/17 08/26/17 08/27/17 08/27/17 08/27/17 06:59 14:59 22:59 06:59 14:59 22:59 Intake Total 149 ml 950 ml 200 ml 170 ml 250 ml Output Total 725 ml 900 ml 800 ml Balance -576 ml 950 ml -700 ml -630 ml 250 ml Intake Oral 30 ml 120 ml IV Total 119 ml 950 ml 200 ml 50 ml 250 ml Output Urine Total 725 ml 900 ml 800 ml # Bowel Movements 0 0 Result Diagram: 08/27/17 0456 08/27/17 0456 Other Results Laboratory Tests Test 08/24/17 11:30 08/24/17 16:44 08/24/17 18:37 08/25/17 05:24 Troponin I 0.59 NG/ML 0.49 NG/ML Activated Partial Thromboplast Time 40.4 SEC 44.0 SEC White Blood Count 15.7 TH/MM3 Red Blood Count 4.26 MIL/MM3 Hemoglobin 14.0 GM/DL Hematocrit 40.0 % Mean Corpuscular Volume 94.0 FL Mean Corpuscular Hemoglobin 32.8 PG Mean Corpuscular Hemoglobin Concent 34.9 % Red Cell Distribution Width 12.2 % Platelet Count 203 TH/MM3 Mean Platelet Volume 8.0 FL Prothrombin Time 11.5 SEC Prothromb Time International Ratio 1.0 RATIO Blood Urea Nitrogen 15 MG/DL Creatinine 0.74 MG/DL Random Glucose 106 MG/DL Total Protein 6.8 GM/DL Albumin 3.1 GM/DL Calcium Level 8.3 MG/DL Alkaline Phosphatase 46 U/L Aspartate Amino Transf (AST/SGOT) 17 U/L Alanine Aminotransferase (ALT/SGPT) 18 U/L Total Bilirubin 1.4 MG/DL Direct Bilirubin 0.4 MG/DL Sodium Level 133 MEQ/L Potassium Level 4.1 MEQ/L Chloride Level 101 MEQ/L Carbon Dioxide Level 24.9 MEQ/L Anion Gap 7 MEQ/L Estimat Glomerular Filtration Rate 105 ML/MIN Indirect Bilirubin 1.0 MG/DL Test 08/26/17 04:54 08/26/17 04:56 08/27/17 04:56 White Blood Count 13.7 TH/MM3 14.2 TH/MM3 Red Blood Count 4.18 MIL/MM3 4.17 MIL/MM3 Hemoglobin 13.6 GM/DL 13.4 GM/DL Hematocrit 38.8 % 38.7 % Mean Corpuscular Volume 92.8 FL 92.8 FL Mean Corpuscular Hemoglobin 32.4 PG 32.1 PG Mean Corpuscular Hemoglobin Concent 34.9 % 34.6 % Red Cell Distribution Width 12.0 % 12.1 % Platelet Count 205 TH/MM3 188 TH/MM3 Mean Platelet Volume 7.8 FL 7.5 FL Blood Urea Nitrogen 10 MG/DL 11 MG/DL Creatinine 0.61 MG/DL 0.61 MG/DL Random Glucose 97 MG/DL 94 MG/DL Total Protein 6.4 GM/DL 6.4 GM/DL Albumin 2.9 GM/DL 2.7 GM/DL Calcium Level 8.4 MG/DL 8.2 MG/DL Alkaline Phosphatase 45 U/L 46 U/L Aspartate Amino Transf (AST/SGOT) 14 U/L 11 U/L Alanine Aminotransferase (ALT/SGPT) 16 U/L 15 U/L Total Bilirubin 1.4 MG/DL 1.2 MG/DL Direct Bilirubin 0.5 MG/DL 0.4 MG/DL Sodium Level 132 MEQ/L 133 MEQ/L Potassium Level 4.1 MEQ/L 4.0 MEQ/L Chloride Level 99 MEQ/L 100 MEQ/L Carbon Dioxide Level 25.0 MEQ/L 23.5 MEQ/L Anion Gap 8 MEQ/L 10 MEQ/L Estimat Glomerular Filtration Rate 131 ML/MIN 131 ML/MIN Indirect Bilirubin 0.9 MG/DL 0.8 MG/DL Triglycerides Level 80 MG/DL Cholesterol Level 103 MG/DL LDL Cholesterol 43 MG/DL HDL Cholesterol 43.6 MG/DL Cholesterol/HDL Ratio 2.36 RATIO Prothrombin Time 11.7 SEC 11.9 SEC Prothromb Time International Ratio 1.1 RATIO 1.1 RATIO Activated Partial Thromboplast Time 26.8 SEC 29.6 SEC Neutrophils (%) (Auto) 77.4 % Lymphocytes (%) (Auto) 8.3 % Monocytes (%) (Auto) 13.1 % Eosinophils (%) (Auto) 1.0 % Basophils (%) (Auto) 0.2 % Neutrophils # (Auto) 11.0 TH/MM3 Lymphocytes # (Auto) 1.2 TH/MM3 Monocytes # (Auto) 1.9 TH/MM3 Eosinophils # (Auto) 0.1 TH/MM3 Basophils # (Auto) 0.0 TH/MM3 CBC Comment DIFF FINAL Differential Comment Phosphorus Level 2.9 MG/DL Magnesium Level 2.0 MG/DL Free Thyroxine 1.27 NG/DL Thyroid Stimulating Hormone 3rd Gen 0.574 uIU/ML Imaging Last Impressions Chest X-Ray 08/26/17 Signed Impressions: Service Date/Time: Saturday, August 26, 2017 22:55 - CONCLUSION: Pacemaker placement without complication. Sagar Miles MD Liver Ultrasound 08/23/17 Signed Impressions: Service Date/Time: Wednesday, August 23, 2017 18:59 - CONCLUSION: 1. Right renal cysts. Vijay Gibbs MD Head CT 08/23/17 Signed Impressions: Service Date/Time: Wednesday, August 23, 2017 17:07 - CONCLUSION: Normal examination. Vijay Gibbs MD CT Angiography 08/23/17 Signed Impressions: Service Date/Time: Wednesday, August 23, 2017 17:13 - CONCLUSION: No evidence of pulmonary embolism Sagar Miles MD Objective Remarks GENERAL: AWAKE ALERT ORIENTED x3 NO ACUTE DISTRESS SKIN: Warm and dry. HEAD: Atraumatic. Normocephalic. EYES: Pupils equal and round. No scleral icterus. No injection or drainage. EOMI ENT: No nasal bleeding or discharge. Mucous membranes pink and moist. TONGUE MIDLINE NECK: Trachea midline. No JVD. SUPPLE CARDIOVASCULAR: Regular rate and rhythm. S1, S2 NO S3 OR S4 NO HEAVE OR THRILL- - LEFT SIDE AICD DRESSED RESPIRATORY: No accessory muscle use. Clear to auscultation. Breath sounds equal bilaterally. GASTROINTESTINAL: Abdomen soft, non-tender, nondistended. Hepatic and splenic margins not palpable. MUSCULOSKELETAL: Extremities without clubbing, cyanosis, or edema. No obvious deformities. NEUROLOGICAL: Awake and alert. No obvious cranial nerve deficits. Motor grossly within normal limits. Five out of 5 muscle strength in the arms and legs. Normal speech. PSYCHIATRIC: Appropriate mood and affect; insight and judgment normal. Procedures CARDIAC CATH 10 MODERATE CAD, MODERATE TO SEVERE LV DYSFUNCTION SIMEON NARAYANAN DATE: 08/25/2017 INDICATION Wide complex tachycardia, cardiomyopathy, congestive heart failure, [id number] myocardial infarction. PROCEDURE PERFORMED Retrograde left and right heart catheterization with left ventriculography, selective angiography and thermodilution cardiac output examination and saturation runs to evaluate for cardiac shunt. ACCESS SITE Right femoral artery and right femoral vein. EQUIPMENT USED Ratcliff-Roger catheter. 5 Lao sheath. 5 Lao pigtail catheter. 5 Lao JL4 and AR modified coronary artery catheters. MEDICATIONS Versed IV, fentanyl IV. CONTRAST Omnipaque 70 cc. COMPLICATIONS None. ESTIMATED BLOOD LOSS Less than 10 cc. METHOD OF HEMOSTASIS Vascade closure and manual compression. RESULTS HEMODYNAMICS Mean pulmonary capillary wedge pressure 13 mmHg. Mean pulmonary artery 34/14/23. Right ventricle 34/7. Mean right atrial pressure 10 mmHg. Left ventricular end-diastolic pressure 12 mmHg. Left ventricle 120/12. Aorta 120/73/92. Cardiac output by thermodilution 6.2 liters per minute. Pulmonary artery saturation 82.1, aorta 97.3, right ventricle 80.5, right atrium 82.3. No evidence of [id number]-[id number] shunt. LEFT VENTRICULOGRAPHY Left ventricular ejection fraction 30%. Wall motion moderate to severe global hypokinesis. No mitral regurgitation seen. CORONARY ANGIOGRAPHY The left main coronary artery is patent. The left anterior descending artery has 50% focal stenosis in the midportion. The vessel is diffusely calcified. The first, second, third and fourth diagonal arteries are small and patent. The left circumflex artery is a very large dominant vessel with 30% stenosis in the midportion. OM1 is patent. OM2 is patent. Left PDA is patent. The right coronary artery is a small nondominant vessel which is patent. DIAGNOSIS 1. Moderate nonobstructive coronary artery disease. 2. Moderate to severe left ventricular systolic dysfunction. 3. No evidence of pulmonary hypertension. 4. No evidence of cardiac shunt. DISPOSITION Mr. Burch will be monitored on telemetry after his procedure. Will proceed with electrophysiology study and possible ICD placement tomorrow. SIMEON NARAYANAN DATE 08/26/2017 INDICATION Sustained monomorphic ventricular tachycardia, spontaneous and inducible at EP study, nonischemic cardiomyopathy with moderate left ventricular systolic dysfunction. Secondary prevention. PROCEDURE PERFORMED 1. Placement of [employer] dual-chamber defibrillator. 2. Testing of [employer] defibrillator system. 3. Defibrillation threshold of 20 joules or less. ACCESS SITE Left subclavian vein. EQUIPMENT USED DEVICE: [employer] model [id number] dual-chamber defibrillator, serial number [id number]. Right atrial lead is [employer] model [id number], 46-cm screw-in atrial lead, serial number [id number]. Right ventricular lead is a [employer] model 7120Q, 65-cm screw-in ventricle lead, serial number [id number]. LEAD TESTING Right atrial lead - P-wave 1.5 mV, lead impedance 610 ohms, pacing threshold 1.25 volts at 0.5 milliseconds. Pacing at 10 volts, no diaphragmatic stimulation. Right ventricular lead - R-wave over 12 mV, lead impedance 530 ohms, pacing threshold 0.5 volts at 0.5 milliseconds. Pacing at 10 volts, no diaphragmatic stimulation. Ventricular fibrillation was induced on one occasion and terminated with a single 20-joule shock with an impedance of 40 ohms. PARAMETERS Mode DDD. Lead T-zone 160-220 beats per minute. VF-zone over 220 beats per minute. DIAGNOSES 1. Sustained monomorphic ventricular tachycardia (secondary prevention). 2. Successful placement of [employer] dual chamber defibrillator. 3. Successful testing of [employer] defibrillator system. 4. Defibrillation threshold of 20 joules or less. DISPOSITION 1. Mr. Burch will be monitored on telemetry after this procedure. 2. We will continue therapy for congestive heart failure. 3. We will also continue therapy with amiodarone. 4. He will be scheduled for a wound check and coronary device reprogramming in our office within two weeks. Medications and IVs Current Medications Amiodarone HCl 150 mg/Dextrose 100 ml @ 600 mls/hr Q10M ONCE IV Last administered on 08/23/17 15:20; Start 08/23/17 at 15:08; Stop 08/23/17 at 15:17 ; Status DC Adenosine (Adenocard Inj) 6 mg STK-MED ONCE .ROUTE Last administered on 15:30; Start 08/23/17 at 15:30; Stop 08/23/17 at 15:31; Status DC Adenosine (Adenocard Inj) 6 mg STK-MED ONCE .ROUTE Last administered on 15:32; Start 08/23/17 at 15:31; Stop 08/23/17 at 15:32; Status DC Adenosine (Adenocard Inj) 6 mg STK-MED ONCE .ROUTE Last administered on 15:32; Start 08/23/17 at 15:34; Stop 08/23/17 at 15:35; Status DC Midazolam HCl (Versed Inj) 5 mg STK-MED ONCE .ROUTE Last administered on 15:45; Start 08/23/17 at 15:39; Stop 08/23/17 at 15:40; Status DC Ondansetron HCl (Zofran Inj) 8 mg STK-MED ONCE .ROUTE Last administered on 08/23 15:48; Start 08/23/17 at 15:48; Stop 08/23/17 at 15:49; Status DC Sodium Chloride 500 ml @ 1,000 mls/hr BOLUS ONCE IV Last administered on 08/23 16:15; Start 08/23/17 at 16:15; Stop 08/23/17 at 16:44; Status DC Milrinone Lactate 5 mg/Sodium Chloride 105 ml @ 630 mls/hr BOLUS ONCE IV ; Start 08/23/17 at 16:15; Stop 08/23/17 at 16:24; Status Cancel Milrinone Lactate 5 mg/Sodium Chloride 50 ml @ 300 mls/hr BOLUS ONCE IV ; Start 08/23/17 at 16:15; Stop 08/23/17 at 16:19; Status DC Magnesium Oxide (Mag-Ox) 800 mg UNSCH PRN PO For Magnesium 1.2 - 1.6 mg/dL; Start 08/23/17 at 17:15 Magnesium Sulfate 4 gm/Sodium Chloride 100 ml @ 50 mls/hr UNSCH PRN IV For Magnesium 0.9 - 1.1 mg/dL; Start 08/23/17 at 17:15 Magnesium Sulfate 2 gm/Sodium Chloride 100 ml @ 50 mls/hr UNSCH PRN IV For Magnesium 1.2 - 1.6 mg/dL; Start 08/23/17 at 17:15 Potassium Chloride 100 ml @ 50 mls/hr Q2H PRN IV For Potassium 2.8 - 3.2 mEq/L ; Start 08/23/17 at 17:15 Potassium Chloride 100 ml @ 50 mls/hr Q2H PRN IV For Potassium 3.3 - 3.5 mEq/L ; Start 08/23/17 at 17:15 Potassium Chloride 100 ml @ 50 mls/hr Q2H PRN IV For Potassium 2.8 - 3.2 mEq/L ; Start 08/23/17 at 17:15 Potassium Chloride 100 ml @ 25 mls/hr UNSCH PRN IV For Potassium 3.3 - 3.5 mEq /L; Start 08/23/17 at 17:15 Potassium Phosphate (K-Phos) 2,000 mg Q4H PRN PO For Phosphorus < 2.5 mg/dL; Start 08/23/17 at 17:15 Potassium Phosphate (K-Phos) 2,000 mg UNSCH PRN PO/TUBE SEE LABEL COMMENTS; Start 08/23/17 at 17:15 Potassium Phosphate 30 mmol/ Sodium Chloride 260 ml @ 42 mls/hr UNSCH PRN IV SEE LABEL COMMENTS; Start 08/23/17 at 17:15 Sodium Phosphate 30 mmol/Sodium Chloride 250 ml @ 42 mls/hr UNSCH PRN IV For Phosphorus < 2.5 mg/dL; Start 08/23/17 at 17:15 Sodium Chloride (NS Flush) 2 ml UNSCH PRN IV FLUSH FLUSH AFTER USING IV ACCESS ; Start 08/23/17 at 17:15 Sodium Chloride (NS Flush) 2 ml BID IV FLUSH Last administered on 08/26/17 21 :00; Start 08/23/17 at 21:00 Famotidine (Pepcid) 20 mg Q12HR PO Last administered on 08/26/17 22:59; Start 08/23/17 at 21:00 Ondansetron HCl (Zofran Inj) 4 mg Q6H PRN IV PUSH NAUSEA OR VOMITING; Start at 17:15 Albuterol/ Ipratropium (Duoneb Neb) 1 ampule Q2HR NEB PRN INH WHEEZING; Start 08/23/17 at 17:15 Miscellaneous Information 1 Q361D XX ; Start 08/23/17 at 17:15 Chlorhexidine Gluconate (Chlorhexidine 2% Cloth) 3 pack Taper DAILY@04 TOP Last administered on 08/25/17 04:00; Start 08/24/17 at 04:00; Stop 08/20/18 at 03:59 Chlorhexidine Gluconate (Chlorhexidine 2% Cloth) 3 pack UNSCH PRN TOP HYGIENIC CARE; Start 08/23/17 at 17:15 Senna/Docusate Sodium (Justine-Colace) 1 tab BID PO Last administered on 22:59; Start 08/23/17 at 21:00 Magnesium Hydroxide (Milk Of Magnesia Liq) 30 ml Q12H PRN PO MILD - MODERATE CONSTIPATION; Start 08/23/17 at 17:15 Sennosides (Senokot) 17.2 mg Q12H PRN PO MODERATE - SEVERE CONSTIPATION; Start 08/23/17 at 17:15 Bisacodyl (Dulcolax Supp) 10 mg DAILY PRN RECTAL SEVERE CONSITIPATION; Start 08/23/17 at 17:15 Lactulose (Lactulose Liq) 30 ml DAILY PRN PO SEVERE CONSITIPATION; Start at 17:15 Amiodarone HCl 900 mg/Dextrose 500 ml @ 33.33 mls/ hr Q15H1M PRN IV Per Protocol; Start 08/23/17 at 17:12; Status Cancel Iohexol (Omnipaque 350 Inj) 75 ml STK-MED ONCE IVCONTRAST Last administered on 08/23/17 17:23; Start 08/23/17 at 17:23; Stop 08/23/17 at 17:24; Status DC Amiodarone HCl 450 mg/Dextrose 250 ml @ 33.33 mls/ hr Q7H31M PRN IV Per Protocol Last administered on 08/26/17 17:08; Start 08/23/17 at 17:30; Stop 08/26/17 at 19:41; Status DC Heparin Sodium/ Dextrose 250 ml @ 10 mls/hr TITRATE PRN IV Coagulation management Last administered on 08/25/17 11:48; Start 08/23/17 at 17:45 Furosemide (Lasix Inj) 60 mg NOW ONCE IV PUSH Last administered on 08/23/17 22:16; Start 08/23/17 at 21:19; Stop 08/23/17 at 21:20; Status DC Amiodarone HCl 150 mg/Dextrose 100 ml @ 100 mls/hr Q1H ONCE IV Last administered on 08/24/17 09:48; Start 08/24/17 at 09:07; Stop 08/24/17 at 10:06 ; Status DC Magnesium Sulfate/ Dextrose 100 ml @ 100 mls/hr Q1H IV Last administered on 11:02; Start 08/24/17 at 10:00; Stop 08/24/17 at 11:59; Status DC Potassium Chloride 100 ml @ 50 mls/hr BOLUS ONCE IV Last administered on 08/24 10:02; Start 08/24/17 at 09:15; Stop 08/24/17 at 11:14; Status DC Heparin Sodium/ Sodium Chloride 1,000 ml @ As Directed STK-MED ONCE .ROUTE Last administered on 08/25/17 20:33; Start 08/25/17 at 20:33; Stop 08/25/17 at 20:34; Status DC Fentanyl Citrate (fentaNYL INJ) 100 mcg STK-MED ONCE .ROUTE Last administered on 08/25/17 20:51; Start 08/25/17 at 20:35; Stop 08/25/17 at 20:36; Status DC Midazolam HCl (Versed Inj) 5 mg STK-MED ONCE .ROUTE Last administered on 20:50; Start 08/25/17 at 20:35; Stop 08/25/17 at 20:36; Status DC Heparin Sodium (Porcine) (Heparin Inj) 10,000 units STK-MED ONCE .ROUTE Last administered on 08/25/17 21:03; Start 08/25/17 at 21:02; Stop 08/25/17 at 21:03 ; Status DC Protamine Sulfate (Protamine Sulfate Inj) 50 mg STK-MED ONCE .ROUTE Last administered on 08/25/17 21:33; Start 08/25/17 at 21:32; Stop 08/25/17 at 21:33 ; Status DC Sodium Chloride 500 ml @ 100 mls/hr Q5H IV Last administered on 08/26/17 14: 44; Start 08/25/17 at 22:00; Stop 08/26/17 at 21:59; Status DC Levothyroxine Sodium (Synthroid) 88 mcg DAILY@0600 PO Last administered on 05:37; Start 08/26/17 at 09:00 Iohexol (OMNIPAQUE 350 INJ (Data Collection Technician)) 100 ml STK-MED ONCE OTHER ; Start at 12:40; Stop 08/26/17 at 12:41; Status DC Heparin Sodium/ Sodium Chloride 1,000 ml @ As Directed STK-MED ONCE .ROUTE ; Start 08/26/17 at 18:04; Stop 08/26/17 at 18:05; Status DC Vancomycin HCl (Vancomycin Inj) 1,000 mg STK-MED ONCE .ROUTE ; Start 08/26/17 at 18:05; Stop 08/26/17 at 18:06; Status DC Vancomycin HCl (Vancomycin Inj) 500 mg STK-MED ONCE .ROUTE ; Start 08/26/17 at 18:05; Stop 08/26/17 at 18:06; Status DC Lidocaine HCl (Xylocaine 2% Inj) 50 ml STK-MED ONCE .ROUTE ; Start 08/26/17 at 18:05; Stop 08/26/17 at 18:06; Status DC Cefazolin Sodium (Ancef Inj) 2,000 mg STK-MED ONCE .ROUTE ; Start 08/26/17 at 18:05; Stop 08/26/17 at 18:06; Status DC Isoproterenol HCl (Isuprel Inj) 1 mg STK-MED ONCE .ROUTE ; Start 08/26/17 at 18 :25; Stop 08/26/17 at 18:26; Status DC Sodium Chloride 250 ml @ As Directed STK-MED ONCE .ROUTE ; Start 08/26/17 at 18:27; Stop 08/26/17 at 18:28; Status DC Carvedilol (Coreg) 3.125 mg Q12HR PO Last administered on 08/26/17 22:59; Start 08/26/17 at 21:00 Lisinopril (Prinivil) 2.5 mg DAILY PO ; Start 08/27/17 at 09:00 Amiodarone HCl (Cordarone) 400 mg Q12HR PO Last administered on 08/26/17 22: 59; Start 08/26/17 at 21:00; Stop 09/02/17 at 09:01 Miscellaneous (Pill Splitter) 1 ea UNSCH PRN OTHER SEE LABEL COMMENTS; Start 08/26/17 at 19:45 Amiodarone HCl (Cordarone) 200 mg DAILY PO ; Start 09/03/17 at 09:00 Propofol (Diprivan 200 Mg/20 ml Inj) 200 mg STK-MED ONCE .ROUTE ; Start at 20:21; Stop 08/26/17 at 20:22; Status DC Cefazolin Sodium/ Dextrose 50 ml @ 100 mls/hr Q8H IV Last administered on 02:22; Start 08/27/17 at 02:00; Stop 08/27/17 at 18:29 Vancomycin HCl 1000 mg/Sodium Chloride 250 ml @ 250 mls/hr ONCE ONCE IV Last administered on 08/27/17 06:00; Start 08/27/17 at 06:00; Stop 08/27/17 at 06 :59; Status DC Urinary Catheter: No Vascular Central Line Catheter: No A/P Assessment and Plan Assessment: 67-year-old male with past medical history of hypothyroidism and hypertension who presents with new onset tachydysrhythmia, which is either A. fib/flutter with aberrancy versus slow V. tach. Clinically his end-organ function is improving. He is out of shock. His troponins are downtrending. He will need ongoing work-up for his new-onset dysrhythmia. will transition off amiodarone infusion this afternoon. appreciate cardiology input. could leave the ICU as early as today or tomorrow. Highly complex with multiple medical problems ongoing. Plan by systems: Neurologic: - Avoid long-acting sedating meds - Follow up CT head Respiratory: - Aggressive pulmonary toilet - Wean oxygen by nasal cannula for goal SPO2 greater than 92% - CT pulmonary angiogram negative for PE Cardiovascular: Cardiogenic shock- resolved. Elevated troponin, possible NSTEMI Acute CHF exacerbation, new, systolic type New-onset tachydysrhythmia: afib/flutter with aberrancy vs. v tach - echo 08/23: ef 30-35%, mild pulmonary htn, RVSP 35. no RWMA - Trend troponins, downtrending. - continue heparin drip for afib and r/o NSTEMI. - Cardiology consulted. Dr. Narayanan planning cardiac catheterization 08/25 - Continue amiodarone infusion-cardiology to decide switching to by mouth - Monitor on telemetry. - hold off on additional forced diuresis. patient appears currently euvolemic. HAD CARDIAC CATH ON 08-25 SHOWED MODERATE CAD, SHOWED MODERATE-SEVERE LV DYSFUNCTION TO GO FOR EP STUDY ON 08-26 HAD AICD PLACED ON 08-26 INTERROGATED ALREADY TODAY Renal: Acute kidney injury- resolved. -- Strict I/Os - Trend creatinine - Renal function likely secondary to cardiogenic shock: renal function has improved as shock has improved. FEN/GI: congestive hepatopathy- resolving. Intravascular volume overload- resolving. Hyperkalemia- resolved. Hypervolemic hyponatremia- resolving. Nausea/vomiting- resolved. - His symptoms nausea and vomiting are likely secondary to congestive hepatopathy secondary to cardiogenic shock, and his n/v symptoms have resolved. - liver ultrasound 08/23 normal - hepatitis panel pending. - Daily BMP, LFTs, coags - Zofran when necessary for nausea Heme/ID: Leukocytosis- likely reactive, improving. - Daily CBC - No infectious etiology suspected this time - Does not meet transfusion triggers Endocrine: Hypothyroidism --RESTART SYNTHROID 88MCG DAILY Prophylaxis: GI Prophylaxis - Pepcid DVT Prophylaxis -- SCDs - heparin drip Lines: Peripheral IVs FOR EPS TODAY 08-26 DW RN AND PT AND AM LABS Discharge Planning DC TO HOME TODAY AFTER CLEARED BY CARDIOLOGY Franco Smith DO Aug 27, 2017 09:19
[2017-08-27] MEDS ORDERED: CARV3.125 PO (09:28)
[2017-08-27] MEDS ORDERED: LEVO88TA2 PO (09:28)
[2017-08-27] MEDS ORDERED: PERC5TAB12 PO (09:28)
[2017-08-27] MEDS ORDERED: FAMO20TA2 PO (09:28)
[2017-08-27] MEDS ORDERED: LISI-519 PO (09:28)
[2017-08-27] MEDS ORDERED: CEPH-460 PO (09:28)
[2017-08-27] MEDS ORDERED: AMIO200T PO (09:28)
[2017-08-27] MEDS ORDERED: AMLO5TAB2 PO (09:28)
--- NOTE | 2017-08-27 09:31 | HHI.DS ---
Discharge Summary Admission Date Aug 23, 2017 at 16:22 Discharge Date: Aug 27, 2017 Admitting Diagnosis Unstable VT (1) NSTEMI (non-ST elevated myocardial infarction) ICD Code: I21.4 - Non-ST elevation (NSTEMI) myocardial infarction Diagnosis: Principal (2) Wide-complex tachycardia ICD Code: I47.2 - Ventricular tachycardia Diagnosis: Secondary (3) HTN (hypertension) ICD Code: I10 - Essential (primary) hypertension Diagnosis: Principal (4) Renal insufficiency ICD Code: N28.9 - Disorder of kidney and ureter, unspecified Diagnosis: Secondary (5) Cardiomyopathy ICD Code: I42.9 - Cardiomyopathy, unspecified Diagnosis: Principal (6) Atrial fibrillation ICD Code: I48.91 - Unspecified atrial fibrillation Diagnosis: Principal (7) Tachycardia ICD Code: R00.0 - Tachycardia, unspecified Diagnosis: Principal Status: Acute (8) Cardiogenic shock ICD Code: R57.0 - Cardiogenic shock Diagnosis: Secondary Status: Acute Procedures CARDIAC CATH 08-25 MODERATE CAD, MODERATE TO SEVERE LV DYSFUNCTION ERIKA NARAYANAN DATE: 08/25/2017 INDICATION Wide complex tachycardia, cardiomyopathy, congestive heart failure, uvt-AP-haristgru myocardial infarction. PROCEDURE PERFORMED Retrograde left and right heart catheterization with left ventriculography, selective angiography and thermodilution cardiac output examination and saturation runs to evaluate for cardiac shunt. ACCESS SITE Right femoral artery and right femoral vein. EQUIPMENT USED [place] catheter. 5 [place] sheath. 5 [place]ian pigtail catheter. 5 [place] JL4 and AR modified coronary artery catheters. MEDICATIONS Versed IV, fentanyl IV. CONTRAST Omnipaque 70 cc. COMPLICATIONS None. ESTIMATED BLOOD LOSS Less than 10 cc. METHOD OF HEMOSTASIS Vascade closure and manual compression. RESULTS HEMODYNAMICS Mean pulmonary capillary wedge pressure 13 mmHg. Mean pulmonary artery 34/14/23. Right ventricle 34/7. Mean right atrial pressure 10 mmHg. Left ventricular end-diastolic pressure 12 mmHg. Left ventricle 120/12. Aorta 120/73/92. Cardiac output by thermodilution 6.2 liters per minute. Pulmonary artery saturation 82.1, aorta 97.3, right ventricle 80.5, right atrium 82.3. No evidence of tzrq-mb-ndhcl shunt. LEFT VENTRICULOGRAPHY Left ventricular ejection fraction 30%. Wall motion moderate to severe global hypokinesis. No mitral regurgitation seen. CORONARY ANGIOGRAPHY The left main coronary artery is patent. The left anterior descending artery has 50% focal stenosis in the midportion. The vessel is diffusely calcified. The first, second, third and fourth diagonal arteries are small and patent. The left circumflex artery is a very large dominant vessel with 30% stenosis in the midportion. OM1 is patent. OM2 is patent. Left PDA is patent. The right coronary artery is a small nondominant vessel which is patent. DIAGNOSIS 1. Moderate nonobstructive coronary artery disease. 2. Moderate to severe left ventricular systolic dysfunction. 3. No evidence of pulmonary hypertension. 4. No evidence of cardiac shunt. DISPOSITION Mr. Burch will be monitored on telemetry after his procedure. Will proceed with electrophysiology study and possible ICD placement tomorrow. ERIKA NARAYANAN DATE 08/26/2017 INDICATION Sustained monomorphic ventricular tachycardia, spontaneous and inducible at EP study, nonischemic cardiomyopathy with moderate left ventricular systolic dysfunction. Secondary prevention. PROCEDURE PERFORMED 1. Placement of [place] [place] dual-chamber defibrillator. 2. Testing of [employer] [place] defibrillator system. 3. Defibrillation threshold of 20 joules or less. ACCESS SITE Left subclavian vein. EQUIPMENT USED DEVICE: [employer] [place] model [id number] dual-chamber defibrillator, serial number [id number]. Right atrial lead is [employer] model [id number], 46-cm screw-in atrial lead, serial number [id number]. Right ventricular lead is a [employer] model 7120Q, 65-cm screw-in ventricle lead, serial number [id number]. LEAD TESTING Right atrial lead - P-wave 1.5 mV, lead impedance 610 ohms, pacing threshold 1.25 volts at 0.5 milliseconds. Pacing at 10 volts, no diaphragmatic stimulation. Right ventricular lead - R-wave over 12 mV, lead impedance 530 ohms, pacing threshold 0.5 volts at 0.5 milliseconds. Pacing at 10 volts, no diaphragmatic stimulation. Ventricular fibrillation was induced on one occasion and terminated with a single 20-joule shock with an impedance of 40 ohms. PARAMETERS Mode DDD. Lead T-zone 160-220 beats per minute. VF-zone over 220 beats per minute. DIAGNOSES 1. Sustained monomorphic ventricular tachycardia (secondary prevention). 2. Successful placement of [place] [place] dual chamber defibrillator. 3. Successful testing of [employer] [place] defibrillator system. 4. Defibrillation threshold of 20 joules or less. DISPOSITION 1. Mr. Burch will be monitored on telemetry after this procedure. 2. We will continue therapy for congestive heart failure. 3. We will also continue therapy with amiodarone. 4. He will be scheduled for a wound check and coronary device reprogramming in our office within two weeks. Brief History - From Admission This is a 67-year-old male with a past medical history significant for hypothyroidism and hypertension well-controlled on medication who presents with a few day history starting , 3 days prior to admission, where he started having nausea and vomiting. He states that his nausea was not associated with eating or food. It was nonbloody, nonbilious. He denies exertion worsening the symptoms. He vehemently denies chest pain, shortness of breath. Denies exertional dyspnea, and even endorsed walking 2 miles on without any difficulties, despite having nausea and vomiting. He denies ever having any past history of coronary artery disease or stroke, and denies any family history of coronary artery disease or stroke. Today his symptoms progressed and he went to an urgent care clinic where he was found to be in a wide complex tachycardia and EMS was called to bring him to the emergency department. EMS was unable to obtain a blood pressure, the patient was initially given 10 mg of Cardizem IV bolus, followed by amiodarone IV bolus , followed by adenosine, followed finally by electrical cardioversion. At this point, the patient converted into normal sinus rhythm. He was slightly hypotensive and then given 2 L normal saline bolus. Stat echo was ordered and is still pending. Troponins which were drawn before electrical cardioversion are mildly elevated at 0.45. BNP is elevated at 539. Lactate is elevated at 2.4. He has evidence of early acute kidney injury and a creatinine of 1.6. A complete review of systems is otherwise negative in this gentleman, including fever, chills, diarrhea, constipation, bloody stools, lower extremity swelling, recent flulike illnesses out to the last 6-8 months, international travel. He does have a history of prior thyroidectomy and a few months ago had a slightly elevated thyroid function levels secondary to iatrogenic hyperthyroidism, but the patient's states that his Synthroid dose was decreased and his recheck levels were within normal limits. Critical care medicine is consulted to evaluate and manage the patient's new acute dysrhythmia and shock. CBC/BMP: 08/27/17 0456 08/27/17 0456 Significant Findings Laboratory Tests Test 08/24/17 11:30 08/24/17 16:44 08/24/17 18:37 08/25/17 05:24 Troponin I 0.59 NG/ML (0.02-0.05) 0.49 NG/ML (0.02-0.05) Activated Partial Thromboplast Time 40.4 SEC (24.3-30.1) 44.0 SEC (24.3-30.1) White Blood Count 15.7 TH/MM3 (4.0-11.0) Red Blood Count 4.26 MIL/MM3 (4.50-5.90) Albumin 3.1 GM/DL (3.4-5.0) Calcium Level 8.3 MG/DL (8.5-10.1) Total Bilirubin 1.4 MG/DL (0.2-1.0) Direct Bilirubin 0.4 MG/DL (0.0-0.2) Sodium Level 133 MEQ/L (136-145) Indirect Bilirubin 1.0 MG/DL (0.0-0.8) Test 08/26/17 04:54 08/26/17 04:56 08/27/17 04:56 White Blood Count 13.7 TH/MM3 (4.0-11.0) 14.2 TH/MM3 (4.0-11.0) Red Blood Count 4.18 MIL/MM3 (4.50-5.90) 4.17 MIL/MM3 (4.50-5.90) Hematocrit 38.8 % (39.0-51.0) 38.7 % (39.0-51.0) Albumin 2.9 GM/DL (3.4-5.0) 2.7 GM/DL (3.4-5.0) Calcium Level 8.4 MG/DL (8.5-10.1) 8.2 MG/DL (8.5-10.1) Aspartate Amino Transf (AST/SGOT) 14 U/L (15-37) 11 U/L (15-37) Total Bilirubin 1.4 MG/DL (0.2-1.0) 1.2 MG/DL (0.2-1.0) Direct Bilirubin 0.5 MG/DL (0.0-0.2) 0.4 MG/DL (0.0-0.2) Sodium Level 132 MEQ/L (136-145) 133 MEQ/L (136-145) Indirect Bilirubin 0.9 MG/DL (0.0-0.8) Cholesterol Level 103 MG/DL (120-200) Prothrombin Time 11.7 SEC (9.8-11.6) 11.9 SEC (9.8-11.6) Neutrophils (%) (Auto) 77.4 % (16.0-70.0) Lymphocytes (%) (Auto) 8.3 % (9.0-44.0) Monocytes (%) (Auto) 13.1 % (0.0-8.0) Neutrophils # (Auto) 11.0 TH/MM3 (1.8-7.7) Monocytes # (Auto) 1.9 TH/MM3 (0-0.9) Imaging Last Impressions Chest X-Ray 08/26/17 Signed Impressions: Service Date/Time: Saturday, August 26, 2017 22:55 - CONCLUSION: Pacemaker placement without complication. Sagar Miles MD Liver Ultrasound 08/23/17 Signed Impressions: Service Date/Time: Wednesday, August 23, 2017 18:59 - CONCLUSION: 1. Right renal cysts. Vijay Gibbs MD Head CT 08/23/17 Signed Impressions: Service Date/Time: Wednesday, August 23, 2017 17:07 - CONCLUSION: Normal examination. Vijay Gibbs MD CT Angiography 08/23/17 Signed Impressions: Service Date/Time: Wednesday, August 23, 2017 17:13 - CONCLUSION: No evidence of pulmonary embolism Sagar Miles MD PE at Discharge GENERAL: AWAKE ALERT ORIENTED x3 NO ACUTE DISTRESS SKIN: Warm and dry. HEAD: Atraumatic. Normocephalic. EYES: Pupils equal and round. No scleral icterus. No injection or drainage. EOMI ENT: No nasal bleeding or discharge. Mucous membranes pink and moist. TONGUE MIDLINE NECK: Trachea midline. No JVD. SUPPLE CARDIOVASCULAR: Regular rate and rhythm. S1, S2 NO S3 OR S4 NO HEAVE OR THRILL- - LEFT SIDE AICD DRESSED RESPIRATORY: No accessory muscle use. Clear to auscultation. Breath sounds equal bilaterally. GASTROINTESTINAL: Abdomen soft, non-tender, nondistended. Hepatic and splenic margins not palpable. MUSCULOSKELETAL: Extremities without clubbing, cyanosis, or edema. No obvious deformities. NEUROLOGICAL: Awake and alert. No obvious cranial nerve deficits. Motor grossly within normal limits. Five out of 5 muscle strength in the arms and legs. Normal speech. PSYCHIATRIC: Appropriate mood and affect; insight and judgment normal. Hospital Course This is a 67-year-old male with a past medical history significant for hypothyroidism and hypertension well-controlled on medication who presents with a few day history starting , 3 days prior to admission, where he started having nausea and vomiting. He states that his nausea was not associated with eating or food. It was nonbloody, nonbilious. He denies exertion worsening the symptoms. He vehemently denies chest pain, shortness of breath. Denies exertional dyspnea, and even endorsed walking 2 miles on without any difficulties, despite having nausea and vomiting. He denies ever having any past history of coronary artery disease or stroke, and denies any family history of coronary artery disease or stroke. Today his symptoms progressed and he went to an urgent care clinic where he was found to be in a wide complex tachycardia and EMS was called to bring him to the emergency department. EMS was unable to obtain a blood pressure, the patient was initially given 10 mg of Cardizem IV bolus, followed by amiodarone IV bolus , followed by adenosine, followed finally by electrical cardioversion. At this point, the patient converted into normal sinus rhythm. He was slightly hypotensive and then given 2 L normal saline bolus. Stat echo was ordered and is still pending. Troponins which were drawn before electrical cardioversion are mildly elevated at 0.45. BNP is elevated at 539. Lactate is elevated at 2.4. He has evidence of early acute kidney injury and a creatinine of 1.6. A complete review of systems is otherwise negative in this gentleman, including fever, chills, diarrhea, constipation, bloody stools, lower extremity swelling, recent flulike illnesses out to the last 6-8 months, international travel. He does have a history of prior thyroidectomy and a few months ago had a slightly elevated thyroid function levels secondary to iatrogenic hyperthyroidism, but the patient's states that his Synthroid dose was decreased and his recheck levels were within normal limits. Critical care medicine is consulted to evaluate and manage the patient's new acute dysrhythmia and shock. Subjective: 08/24: no acute events overnight. however, this morning went into afib with RVR, HR sustained 110s/120s. rebolused amiodarone, gave 2gm mgso4 and 20 meq kcl iv. end-organ perfusion is improving, renal function back to normal, bili still elevated, but lft's normalizing. net negative with single dose of lasix. 08/25: Resting in bed comfortably. Not in any acute distress. Awaiting cardiac catheterization today. HAD CATH ON 08-25 SHOWED MODERATE CAD AND MODERATE TO SEVERE LV DYSFUNCTION 08-26 TO GO FOR EP STUDY TODAY DW RN AND PT AND AM LABS RESTART HOME MEDS 08-27 HAD EP STUDY AND AICD PLACEMENT YESTERDAY NO NEW COMPLAINTS LEFT ARM IN SLING AICD SITE DRESSED WANTS TO GO HOME AICD HAS BEEN INTERROGATED ALREADY Pt Condition on Discharge: Good Discharge Disposition: Disch w/ Home Health Serv Discharge Time: > 30 minutes Discharge Instructions DIET: Follow Instructions for: Heart Healthy Diet Speech Therapy-Diet Recommends: Regular Activities you can perform: Regular-No Restrictions Other Activity Instructions: PACEMAKER/AICD RESTRICTIONS NO TUB BATHS OR SWIMMING UNTIL CLEARED BY CARDIOLOGY Follow up Referrals: Cardiology - 2 Weeks with Erika Narayanan MD PCP Follow-up - 2 Weeks New Medications: Cephalexin (Keflex) 500 Mg Cap 500 MG PO Q8H for Infection, #30 CAP 0 Refills Oxycodone-Acetaminophen (Percocet) 5-325 mg Tab 1-2 TAB PO Q6H PRN for PAIN, #30 TAB 0 Refills Amiodarone (Amiodarone) 200 Mg Tab 400 MG PO Q12HR for Regulate Heart Beat, #120 TAB AMIODARONE 400MG PO BID FOR 7 DAYS THEN SWITCH TO 200MG PO DAILY FROM THERE ON Carvedilol (Coreg) 3.125 Mg Tab 3.125 MG PO Q12HR for Regulate Heart Beat, #60 TAB Famotidine (Famotidine) 20 Mg Tab 20 MG PO Q12HR for Manage Heartburn, #60 TAB Lisinopril (Lisinopril) 5 Mg Tab 2.5 MG PO DAILY for Blood Pressure Management, #60 TAB Continued Medications: Amlodipine (Amlodipine) 5 Mg Tab 5 MG PO DAILY for Blood Pressure Management, #30 TAB 0 Refills (This prescription has been renewed) Levothyroxine (Levothyroxine) 88 Mcg Tab 88 MCG PO DAILY for Thyroid, #30 TAB 0 Refills (This prescription has been renewed) Discontinued Medications: Lisinopril (Lisinopril) 40 Mg Tab 40 MG PO DAILY for Blood Pressure Management, #30 TAB 0 Refills [BP med ] () [thyroid med ] () Franco Smith DO Aug 27, 2017 09:31
--- NOTE | 2017-08-27 09:32 | HHI.FF ---
Face to Face Verification Diagnosis: (1) NSTEMI (non-ST elevated myocardial infarction) (2) Wide-complex tachycardia (3) HTN (hypertension) (4) Cardiomyopathy (5) Renal insufficiency (6) CHF (congestive heart failure) (7) Atrial fibrillation (8) Tachycardia (9) Cardiogenic shock Physical Therapy Order: Evaluate and Treat, Improve ambulation, Strength and gait training Occupational Therapy Order: Evaluate and Treat, Improve ADL, Gross motor coordination, Fine motor coordination Home Health Nursing Order: Wound care and dressing changes Nursing assessment with vital signs Home Health Aide Order: To Assist In: Bathing and personal care, community reinvestment act officer and meal prep I have seen patient Cody Burch on 08/27/17. My clinical findings support the need for the requested home health care services because: Med compliance is questionable I certify that my clinical findings support that this patient is homebound because: Post-op weakness Franco Smith DO Aug 27, 2017 09:32
[2017-08-27] MEDS ORDERED: ROSU10 PO (09:35)
--- NOTE | 2017-08-27 09:41 | MR ---
cc: SIMEON NARAYANAN DATE: 08/26/2017 PROCEDURE: Electrophysiology study INDICATIONS Wide complex tachycardia, ventricular tachycardia, nonischemic cardiomyopathy. PROCEDURE PERFORMED 1. Comprehensive electrophysiology study with right atrial and right ventricle pacing and sensing. 2. Coronary sinus cannulation with coronary sinus pacing and sensing. ACCESS SITE: Left femoral vein. EQUIPMENT USED: Quadripolar catheter x3. MEDICATIONS Sedation by anesthesia. COMPLICATIONS None BLOOD LOSS Less than 10 cc METHOD OF HEMOSTASIS: Manual compression. RESULTS 1. Baseline EKG normal sinus rhythm with normal axis, first-degree AV block, anteroseptal, delayed R-wave progression of precordial leads. 2. Baseline intervals (milliseconds) RR 934, ND 138, QRS 78, QT 402, PTC 416, AH 88, HV 74. RIGHT ATRIAL PROGRAMMED ELECTRICAL STIMULATION: Right atrial programmed electrical stimulation was performed at baseline. RARP (milliseconds). Sick sinus 270/300 500/240/270. RARP 600/210/214. ___ 220/250. AV Wenckebach 460 milliseconds. No atrial arrhythmias were induced. CORONARY SINUS STIMULATION. Coronary sinus stimulation was performed at baseline. RARP 600/300 ____ 240/270. RARP AVN ____ 300/330. No arrhythmias were induced. RIGHT VENTRICLE PROGRAMMED ELECTRICAL STIMULATION. Right ventricle programmed electrical stimulation was performed at baseline. RVRP 600/210/240. 500/260/290 (ventricle tachycardia induced). ARRHYTHMIAS INDUCED Ventricular tachycardia. Cycle length 260 milliseconds, induction RARP from right ventricle apex, duration sustained. MORPHOLOGY: Normal axis, left bundle-branch block. SYMPTOMS: Severe hypotension, ____ RV burst pacing. DIAGNOSIS 1. Sustained monomorphic ventricular tachycardia easily induced at baseline. 2. HV interval 74 milliseconds. DISPOSITION: Mr. Burch was found to have easily inducible sustained monomorphic ventricular tachycardia while on IV amiodarone. We will proceed with the placement of dual chamber defibrillator for secondary prevention, since he presented with ventricular tachycardia as well. MD BRENTON Fitzgerald/JAZIEL /7:19 PM /9:18 AM
[2017-08-27 14:55] LABS: HEMOGLOBIN A1b 1.5 %; HEMOGLOBIN Ao 86.7 %; HEMOGLOBIN LA1C 1.8 %; HEMOGLOBIN P3 3.3 %
--- NOTE | 2017-08-27 15:54 | PD.CARD.PN ---
Subjective Subjective Remarks No CP or SOB, mild dizziness Objective Medications Current Medications Medications (Trade) Dose Ordered Sig/Deepthi Route Start Time Stop Time Status Last Admin (Mag-Ox) 800 mg UNSCH PRN PO 08/23/17 17:15 Magnesium Sulfate 4 gm/Sodium Chloride 100 ml @ 50 mls/hr UNSCH PRN IV 08/23/17 17:15 Magnesium Sulfate 2 gm/Sodium Chloride 100 ml @ 50 mls/hr UNSCH PRN IV 08/23/17 17:15 Potassium Chloride 100 ml @ 50 mls/hr Q2H PRN IV 08/23/17 17:15 Potassium Chloride 100 ml @ 50 mls/hr Q2H PRN IV 08/23/17 17:15 Potassium Chloride 100 ml @ 50 mls/hr Q2H PRN IV 08/23/17 17:15 Potassium Chloride 100 ml @ 25 mls/hr UNSCH PRN IV 08/23/17 17:15 (K-Phos) 2,000 mg Q4H PRN PO 08/23/17 17:15 (K-Phos) 2,000 mg UNSCH PRN PO/TUBE 08/23/17 17:15 Potassium Phosphate 30 mmol/ Sodium Chloride 260 ml @ 42 mls/hr UNSCH PRN IV 08/23/17 17:15 Sodium Phosphate 30 mmol/Sodium Chloride 250 ml @ 42 mls/hr UNSCH PRN IV 08/23/17 17:15 (NS Flush) 2 ml UNSCH PRN IV FLUSH 08/23/17 17:15 (NS Flush) 2 ml BID IV FLUSH 08/23/17 21:00 08/27/17 09:13 (Pepcid) 20 mg Q12HR PO 08/23/17 21:00 08/27/17 09:13 (Zofran Inj) 4 mg Q6H PRN IV PUSH 08/23/17 17:15 (Duoneb Neb) 1 ampule Q2HR NEB PRN INH 08/23/17 17:15 Miscellaneous Information 1 Q361D XX 08/23/17 17:15 (Chlorhexidine 2% Cloth) 3 pack Taper DAILY@04 TOP 08/24/17 04:00 08/20/18 03:59 08/25/17 04:00 (Chlorhexidine 2% Cloth) 3 pack UNSCH PRN TOP 08/23/17 17:15 (Justine-Colace) 1 tab BID PO 08/23/17 21:00 08/27/17 09:12 (Milk Of Magnesia Liq) 30 ml Q12H PRN PO 08/23/17 17:15 (Senokot) 17.2 mg Q12H PRN PO 08/23/17 17:15 (Dulcolax Supp) 10 mg DAILY PRN RECTAL 08/23/17 17:15 (Lactulose Liq) 30 ml DAILY PRN PO 08/23/17 17:15 Heparin Sodium/ Dextrose 250 ml @ 10 mls/hr TITRATE PRN IV 08/23/17 17:45 08/25/17 11:48 (Synthroid) 88 mcg DAILY@0600 PO 08/26/17 09:00 08/27/17 05:37 (Coreg) 3.125 mg Q12HR PO 08/26/17 21:00 08/27/17 09:13 (Prinivil) 2.5 mg DAILY PO 08/27/17 09:00 08/27/17 09:13 (Cordarone) 400 mg Q12HR PO 08/26/17 21:00 09/02/17 09:01 08/27/17 09:14 (Pill Splitter) 1 ea UNSCH PRN OTHER 08/26/17 19:45 (Cordarone) 200 mg DAILY PO 09/03/17 09:00 Cefazolin Sodium/ Dextrose 50 ml @ 100 mls/hr Q8H IV 08/27/17 02:00 08/27/17 18:29 08/27/17 09:12 Vital Signs / I&O Vital Signs Date Time Temp Pulse Resp B/P (MAP) Pulse Ox O2 Delivery O2 Flow Rate FiO2 08/27/17 15:21 93 Room Air 08/27/17 15:21 74 20 113/71 (85) 93 08/27/17 15:21 73 08/27/17 14:00 78 08/27/17 13:00 88 08/27/17 12:00 64 08/27/17 11:00 79 21 125/74 (91) 92 08/27/17 11:00 93 Room Air 08/27/17 11:00 78 08/27/17 10:00 82 08/27/17 09:15 74 108/58 (75) 08/27/17 09:00 72 08/27/17 08:00 65 08/27/17 07:30 98.5 68 20 108/58 (75) 94 08/27/17 07:30 94 Nasal Cannula 2.00 08/27/17 07:00 72 08/27/17 06:01 71 08/27/17 05:08 68 08/27/17 04:29 68 08/27/17 04:00 98.0 68 18 115/65 (82) 96 08/27/17 04:00 68 18 115/65 (82) 95 08/27/17 03:18 95 Nasal Cannula 2.00 08/27/17 03:00 69 08/27/17 03:00 98.0 66 16 124/67 (86) 96 08/27/17 02:00 67 08/27/17 02:00 65 18 111/63 (79) 95 08/27/17 01:00 72 08/27/17 01:00 70 18 108/68 (81) 95 08/27/17 00:00 77 08/27/17 00:00 98 Nasal Cannula 2.00 08/27/17 00:00 69 18 124/72 (89) 95 08/26/17 23:53 78 08/26/17 23:30 71 18 117/68 (84) 96 08/26/17 23:00 77 18 117/68 (84) 96 08/26/17 23:00 98.4 77 18 117/68 (84) 96 08/26/17 23:00 78 08/26/17 22:30 64 18 121/69 (86) 95 08/26/17 22:15 67 18 123/73 (90) 96 08/26/17 22:00 77 08/26/17 22:00 66 16 117/73 (88) 96 08/26/17 21:45 66 16 116/71 (86) 95 08/26/17 21:30 67 08/26/17 21:30 98 Nasal Cannula 2.00 08/26/17 21:30 98.1 66 16 115/67 (83) 93 08/26/17 17:08 76 120/72 08/26/17 17:00 78 08/26/17 16:00 70 I/O 08/26/17 08/26/17 08/26/17 08/27/17 08/27/17/11/17 06:59 14:59 22:59 06:59 14:59 22:59 Intake Total 149 ml 950 ml 200 ml 170 ml 250 ml Output Total 725 ml 900 ml 800 ml Balance -576 ml 950 ml -700 ml -630 ml 250 ml Intake Oral 30 ml 120 ml IV Total 119 ml 950 ml 200 ml 50 ml 250 ml Output Urine Total 725 ml 900 ml 800 ml # Bowel Movements 0 0 Physical Exam GENERAL: In NAD. SKIN: Warm and dry. HEAD: Normocephalic. EYES: No scleral icterus. No injection or drainage. NECK: Supple, trachea midline. No JVD or lymphadenopathy. CARDIOVASCULAR: Regular rate and rhythm without murmurs, gallops, or rubs. RESPIRATORY: Breath sounds equal bilaterally. No accessory muscle use. GASTROINTESTINAL: Abdomen soft, non-tender, nondistended. MUSCULOSKELETAL: No cyanosis, trace edema. ICD wound stable Laboratory Laboratory Tests Test 08/27/17 04:56 White Blood Count 14.2 TH/MM3 Red Blood Count 4.17 MIL/MM3 Hemoglobin 13.4 GM/DL Hematocrit 38.7 % Mean Corpuscular Volume 92.8 FL Mean Corpuscular Hemoglobin 32.1 PG Mean Corpuscular Hemoglobin Concent 34.6 % Red Cell Distribution Width 12.1 % Platelet Count 188 TH/MM3 Mean Platelet Volume 7.5 FL Neutrophils (%) (Auto) 77.4 % Lymphocytes (%) (Auto) 8.3 % Monocytes (%) (Auto) 13.1 % Eosinophils (%) (Auto) 1.0 % Basophils (%) (Auto) 0.2 % Neutrophils # (Auto) 11.0 TH/MM3 Lymphocytes # (Auto) 1.2 TH/MM3 Monocytes # (Auto) 1.9 TH/MM3 Eosinophils # (Auto) 0.1 TH/MM3 Basophils # (Auto) 0.0 TH/MM3 CBC Comment DIFF FINAL Differential Comment Prothrombin Time 11.9 SEC Prothromb Time International Ratio 1.1 RATIO Activated Partial Thromboplast Time 29.6 SEC Blood Urea Nitrogen 11 MG/DL Creatinine 0.61 MG/DL Random Glucose 94 MG/DL Total Protein 6.4 GM/DL Albumin 2.7 GM/DL Calcium Level 8.2 MG/DL Phosphorus Level 2.9 MG/DL Magnesium Level 2.0 MG/DL Alkaline Phosphatase 46 U/L Aspartate Amino Transf (AST/SGOT) 11 U/L Alanine Aminotransferase (ALT/SGPT) 15 U/L Total Bilirubin 1.2 MG/DL Direct Bilirubin 0.4 MG/DL Sodium Level 133 MEQ/L Potassium Level 4.0 MEQ/L Chloride Level 100 MEQ/L Carbon Dioxide Level 23.5 MEQ/L Anion Gap 10 MEQ/L Estimat Glomerular Filtration Rate 131 ML/MIN Hemoglobin A1c 5.3 % Indirect Bilirubin 0.8 MG/DL Free Thyroxine 1.27 NG/DL Thyroid Stimulating Hormone 3rd Gen 0.574 uIU/ML Assessment and Plan Problem List: (1) Wide-complex tachycardia ICD Codes: I47.2 - Ventricular tachycardia (2) Cardiomyopathy ICD Codes: I42.9 - Cardiomyopathy, unspecified (3) CHF (congestive heart failure) ICD Codes: I50.9 - Heart failure, unspecified (4) Atrial fibrillation ICD Codes: I48.91 - Unspecified atrial fibrillation (5) HTN (hypertension) ICD Codes: I10 - Essential (primary) hypertension (6) Renal insufficiency ICD Codes: N28.9 - Disorder of kidney and ureter, unspecified (7) NSTEMI (non-ST elevated myocardial infarction) ICD Codes: I21.4 - Non-ST elevation (NSTEMI) myocardial infarction Assessment and Plan No angina or CHF symptoms. Cath with mod CAD, EF 30%, mod to severe global hypokinesis. EPS w easily inducible VT. ICD placed; nl ICD fx, wound stable. Continue tx for CHF. DC home. Will schedule outpt f/u w me within 2 weeks. Erika Duarte MD Aug 27, 2017 15:54
[2017-08-28] VITALS (11 sets, daily range): BP systolic 121–127; BP diastolic 70–76; PULSE 60–96; RESP 16–20; TEMP 97.4–98; O2SAT 92–95
[2017-08-28] MEDS: CHLORHEXIDINE GLUCONATE 2 % 1 PACK (2 CLOTHS) TOP SCH (04:00)
[2017-08-28 05:46] LABS: HEMATOCRIT 37.1 % (39.0-51.0); MEAN CORPUSCULAR HEMOGLOBIN 32.6 PG (27.0-34.0); MEAN CORPUSCULAR HGB CONC 35.1 % (32.0-36.0); PLATELET COUNT 166 TH/MM3 (150-450); RED BLOOD COUNT 3.98 MIL/MM3 (4.50-5.90); REVIEW FLAG FINAL; WHITE BLOOD COUNT 14.4 TH/MM3 (4.0-11.0)
[2017-08-28 05:54] LABS: APTT (PATIENT) 28.2 SEC (24.3-30.1); INTERNATIONAL NORMALIZED RATIO 1.1 RATIO; PROTHROMBIN TIME - PATIENT 12.1 SEC (9.8-11.6)
[2017-08-28] MEDS: LEVOTHYROXINE SODIUM 88 MCG TAB PO SCH (05:55)
[2017-08-28 06:06] LABS: BICARBONATE 24.9 MEQ/L (21.0-32.0); POTASSIUM 3.9 MEQ/L (3.5-5.1)
[2017-08-28 06:10] LABS: INDIRECT BILIRUBIN 0.7 MG/DL (0.0-0.8)
[2017-08-28] MEDS: DOCUSATE SODIUM 50 MG/SENNA 8.6 MG TAB PO SCH (08:23)
[2017-08-28] MEDS: AMIODARONE 200 MG TAB PO SCH (08:23)
[2017-08-28] MEDS: FAMOTIDINE 20 MG TAB PO SCH (08:23)
[2017-08-28] MEDS: LISINOPRIL 5 MG TAB PO SCH (08:24)
[2017-08-28] MEDS: SODIUM CHLORIDE 0.9% FLUSH 10 ML FLUSH IV FLUSH SCH (08:24)
[2017-08-28] MEDS: CARVEDILOL 3.125 MG TAB PO SCH (08:24)
--- NOTE | 2017-08-28 08:36 | HHI.PR ---
Subjective Remarks In the chair, feels much better. Patient wanted to walk with PT before leaving home today,. Says yesterday he was unsteady. He is much better today, able to walk with pT without problems. No n/v/d/c. Denies chest pain, sob, palpitations , lightheadedness. at bedside. Patient feels comfortable to go home. Objective Vitals Vital Signs Date Time Temp Pulse Resp B/P (MAP) Pulse Ox O2 Delivery O2 Flow Rate FiO2 08/28/17 08:00 80 08/28/17 07:00 97.4 64 20 127/76 (93) 95 08/28/17 07:00 60 08/28/17 06:00 66 08/28/17 05:00 60 08/28/17 04:00 66 08/28/17 03:00 98.0 61 16 121/70 (87) 95 08/28/17 03:00 64 08/28/17 02:00 64 08/28/17 01:00 60 08/28/17 00:17 92 Nasal Cannula 3.00 08/28/17 00:00 64 08/27/17 23:00 98.7 72 14 123/74 (90) 93 08/27/17 23:00 68 08/27/17 22:00 64 08/27/17 21:00 70 08/27/17 20:00 84 08/27/17 19:00 98.6 77 18 132/68 (89) 95 08/27/17 19:00 78 08/27/17 18:00 76 08/27/17 17:00 70 08/27/17 16:00 84 08/27/17 15:21 93 Room Air 08/27/17 15:21 74 20 113/71 (85) 93 08/27/17 15:21 73 08/27/17 14:00 78 08/27/17 13:00 88 08/27/17 12:00 64 08/27/17 11:00 79 21 125/74 (91) 92 08/27/17 11:00 93 Room Air 08/27/17 11:00 78 08/27/17 10:00 82 08/27/17 09:15 74 108/58 (75) 08/27/17 09:00 72 I/O 10/11/17 1008/27/17 08/28/17 08/28/17 08/28/17 07:00 15:00 23:00 07:00 15:00 23:00 Intake Total 170 ml 250 ml 50 ml 360 ml Output Total 800 ml 300 ml 300 ml Balance -630 ml 250 ml -250 ml 60 ml Intake Oral 120 ml 360 ml IV Total 50 ml 250 ml 50 ml Output Urine Total 800 ml 300 ml 300 ml # Voids 2 # Bowel Movements 0 1 Result Diagram: 08/28/1752508/28/17525 Objective Remarks GENERAL: AWAKE ALERT ORIENTED x3 NO ACUTE DISTRESS CARDIOVASCULAR: Left side dressing c/d/i. Regular rate and rhythm. S1, S2 NO S3 OR S4 . No M/R/G RESPIRATORY: No accessory muscle use. Clear to auscultation. Breath sounds equal bilaterally. GASTROINTESTINAL: Abdomen soft, non-tender, nondistended. Hepatic and splenic margins not palpable. MUSCULOSKELETAL: Extremities without clubbing, cyanosis, or edema. No obvious deformities. NEUROLOGICAL: Awake and alert. No obvious cranial nerve deficits. Motor grossly within normal limits. Five out of 5 muscle strength in the arms and legs. Normal speech. PSYCHIATRIC: Appropriate mood and affect; insight and judgment normal. Procedures CARDIAC CATH 08-25 MODERATE CAD, MODERATE TO SEVERE LV DYSFUNCTION SIMEON NARAYANAN DATE: 08/25/2017 INDICATION Wide complex tachycardia, cardiomyopathy, congestive heart failure, [id number] myocardial infarction. PROCEDURE PERFORMED Retrograde left and right heart catheterization with left ventriculography, selective angiography and thermodilution cardiac output examination and saturation runs to evaluate for cardiac shunt. ACCESS SITE Right femoral artery and right femoral vein. EQUIPMENT USED [place]-Roger catheter. 5 Turkish sheath. 5 Turkish pigtail catheter. 5 Turkish JL4 and AR modified coronary artery catheters. MEDICATIONS Versed IV, fentanyl IV. CONTRAST Omnipaque 70 cc. COMPLICATIONS None. ESTIMATED BLOOD LOSS Less than 10 cc. METHOD OF HEMOSTASIS Vascade closure and manual compression. RESULTS HEMODYNAMICS Mean pulmonary capillary wedge pressure 13 mmHg. Mean pulmonary artery 34/14/23. Right ventricle 34/7. Mean right atrial pressure 10 mmHg. Left ventricular end-diastolic pressure 12 mmHg. Left ventricle 120/12. Aorta 120/73/92. Cardiac output by thermodilution 6.2 liters per minute. Pulmonary artery saturation 82.1, aorta 97.3, right ventricle 80.5, right atrium 82.3. No evidence of [id number] shunt. LEFT VENTRICULOGRAPHY Left ventricular ejection fraction 30%. Wall motion moderate to severe global hypokinesis. No mitral regurgitation seen. CORONARY ANGIOGRAPHY The left main coronary artery is patent. The left anterior descending artery has 50% focal stenosis in the midportion. The vessel is diffusely calcified. The first, second, third and fourth diagonal arteries are small and patent. The left circumflex artery is a very large dominant vessel with 30% stenosis in the midportion. OM1 is patent. OM2 is patent. Left PDA is patent. The right coronary artery is a small nondominant vessel which is patent. DIAGNOSIS 1. Moderate nonobstructive coronary artery disease. 2. Moderate to severe left ventricular systolic dysfunction. 3. No evidence of pulmonary hypertension. 4. No evidence of cardiac shunt. DISPOSITION Mr. Burch will be monitored on telemetry after his procedure. Will proceed with electrophysiology study and possible ICD placement tomorrow. SIMEON NARAYANAN DATE 08/26/2017 INDICATION Sustained monomorphic ventricular tachycardia, spontaneous and inducible at EP study, nonischemic cardiomyopathy with moderate left ventricular systolic dysfunction. Secondary prevention. PROCEDURE PERFORMED 1. Placement of [employer] dual-chamber defibrillator. 2. Testing of [employer] defibrillator system. 3. Defibrillation threshold of 20 joules or less. ACCESS SITE Left subclavian vein. EQUIPMENT USED DEVICE: [employer] model [id number] dual-chamber defibrillator, serial number [id number]. Right atrial lead is [employer] model [id number], 46-cm screw-in atrial lead, serial number [id number]. Right ventricular lead is a [employer] model 7120Q, 65-cm screw-in ventricle lead, serial number [id number]. LEAD TESTING Right atrial lead - P-wave 1.5 mV, lead impedance 610 ohms, pacing threshold 1.25 volts at 0.5 milliseconds. Pacing at 10 volts, no diaphragmatic stimulation. Right ventricular lead - R-wave over 12 mV, lead impedance 530 ohms, pacing threshold 0.5 volts at 0.5 milliseconds. Pacing at 10 volts, no diaphragmatic stimulation. Ventricular fibrillation was induced on one occasion and terminated with a single 20-joule shock with an impedance of 40 ohms. PARAMETERS Mode DDD. Lead T-zone 160-220 beats per minute. VF-zone over 220 beats per minute. DIAGNOSES 1. Sustained monomorphic ventricular tachycardia (secondary prevention). 2. Successful placement of [employer] dual chamber defibrillator. 3. Successful testing of [employer] defibrillator system. 4. Defibrillation threshold of 20 joules or less. DISPOSITION 1. Mr. Burch will be monitored on telemetry after this procedure. 2. We will continue therapy for congestive heart failure. 3. We will also continue therapy with amiodarone. 4. He will be scheduled for a wound check and coronary device reprogramming in our office within two weeks. A/P Problem List: (1) NSTEMI (non-ST elevated myocardial infarction) ICD Code: I21.4 - Non-ST elevation (NSTEMI) myocardial infarction (2) Wide-complex tachycardia ICD Code: I47.2 - Ventricular tachycardia (3) HTN (hypertension) ICD Code: I10 - Essential (primary) hypertension (4) Renal insufficiency ICD Code: N28.9 - Disorder of kidney and ureter, unspecified (5) Cardiomyopathy ICD Code: I42.9 - Cardiomyopathy, unspecified (6) Atrial fibrillation ICD Code: I48.91 - Unspecified atrial fibrillation (7) Tachycardia ICD Code: R00.0 - Tachycardia, unspecified Status: Acute (8) Cardiogenic shock ICD Code: R57.0 - Cardiogenic shock Status: Acute Assessment and Plan Assessment: 67-year-old male with past medical history of hypothyroidism and hypertension who presents with new onset tachydysrhythmia, which is either A. fib/flutter with aberrancy versus slow V. tach. Clinically his end-organ function is improving. He is out of shock. His troponins are downtrending. He will need ongoing work-up for his new-onset dysrhythmia. will transition off amiodarone infusion this afternoon. appreciate cardiology input. Highly complex with multiple medical problems ongoing. Plan by systems: Neurologic: - Avoid long-acting sedating meds - Follow up CT head Respiratory: - Aggressive pulmonary toilet - Wean oxygen by nasal cannula for goal SPO2 greater than 92% - CT pulmonary angiogram negative for PE Cardiovascular: Cardiogenic shock- resolved. Elevated troponin, possible NSTEMI Acute CHF exacerbation, new, systolic type New-onset tachydysrhythmia: afib/flutter with aberrancy vs. v tach - echo 08/23: ef 30-35%, mild pulmonary htn, RVSP 35. no RWMA - Trend troponins, downtrending. - continue heparin drip for afib and r/o NSTEMI. - Cardiology consulted. Dr. Narayanan planning cardiac catheterization 08/25 - Continue amiodarone infusion-cardiology to decide switching to by mouth - Monitor on telemetry. - hold off on additional forced diuresis. patient appears currently euvolemic. HAD CARDIAC CATH ON 08-25 SHOWED MODERATE CAD, SHOWED MODERATE-SEVERE LV DYSFUNCTION TO GO FOR EP STUDY ON 08-26 HAD AICD PLACED ON 08-26 INTERROGATED ALREADY Renal: Acute kidney injury- resolved. -- Strict I/Os - Trend creatinine - Renal function likely secondary to cardiogenic shock: renal function has improved as shock has improved. FEN/GI: congestive hepatopathy- resolving. Intravascular volume overload- resolving. Hyperkalemia- resolved. Hypervolemic hyponatremia- resolving. Nausea/vomiting- resolved. - His symptoms nausea and vomiting are likely secondary to congestive hepatopathy secondary to cardiogenic shock, and his n/v symptoms have resolved. - liver ultrasound 08/23 normal - hepatitis panel pending. - Daily BMP, LFTs, coags - Zofran when necessary for nausea Heme/ID: Leukocytosis- likely reactive, improving. - Daily CBC - No infectious etiology suspected this time - Does not meet transfusion triggers Endocrine: Hypothyroidism --RESTART SYNTHROID 88MCG DAILY Prophylaxis: GI Prophylaxis - Pepcid DVT Prophylaxis -- SCDs - Received heparin drip Lines: Peripheral IVs FOR EPS TODAY 08-26 Discussed with the patient, nurse, at bedside Discharge Planning DC TO HOME TODAY Consuelo Price MD Aug 28, 2017 08:36
[2017-09-03] MEDS ORDERED: AMIODARONE 200 MG TAB PO SCH (09:00)
== END 2017-08-28 10:25 | disposition home health service (06) | DRG 222 ==
LOC: NEPC 14:47 → NEDA 16:22 → HCVI 18:11 → HCPC 08-25 10:45
PROVIDERS: ADMIT Hospitalist; ATTEND Hospitalist
PROC: 5A2204Z Restoration of Cardiac Rhythm, Single (ICD-10-PCS; principal; 2017-08-23)
PROC: 4A023N8 Measurement of Cardiac Sampling and Pressure, Bilateral, Percutaneous Approach (ICD-10-PCS; 2017-08-25)
PROC: B2111ZZ Fluoroscopy of Multiple Coronary Arteries using Low Osmolar Contrast (ICD-10-PCS; 2017-08-25)
PROC: B2151ZZ Fluoroscopy of Left Heart using Low Osmolar Contrast (ICD-10-PCS; 2017-08-25)
PROC: 0JH608Z Insertion of Defibrillator Generator into Chest Subcutaneous Tissue and Fascia, Open Approach (ICD-10-PCS; 2017-08-26)
PROC: 02HK3KZ Insertion of Defibrillator Lead into Right Ventricle, Percutaneous Approach (ICD-10-PCS; 2017-08-26)
PROC: 02H63KZ Insertion of Defibrillator Lead into Right Atrium, Percutaneous Approach (ICD-10-PCS; 2017-08-26)
PROC: 4A023FZ Measurement of Cardiac Rhythm, Percutaneous Approach (ICD-10-PCS; 2017-08-26)
PROC: 4A0234Z Measurement of Cardiac Electrical Activity, Percutaneous Approach (ICD-10-PCS; 2017-08-26)
DX: I21.4 Non-ST elevation (NSTEMI) myocardial infarction (principal); R57.0 Cardiogenic shock; I50.21 Acute systolic (congestive) heart failure; I47.2 Ventricular tachycardia; N17.9 Acute kidney failure, unspecified; E87.1 Hypo-osmolality and hyponatremia; I42.9 Cardiomyopathy, unspecified; I11.0 Hypertensive heart disease with heart failure; E89.0 Postprocedural hypothyroidism; K76.1 Chronic passive congestion of liver; E87.5 Hyperkalemia; D72.829 Elevated white blood cell count, unspecified; I25.10 Atherosclerotic heart disease of native coronary artery without angina pectoris; I48.91 Unspecified atrial fibrillation; I27.20 Pulmonary hypertension, unspecified; I44.0 Atrioventricular block, first degree
CPT/HCPCS: 33249; 70450; 71010; 71275; 76705; 76937; 80048; 80053; 80061; 80074; 80076; 82550; 82552; 82810; 83036; 83605; 83735; 83880; 84100; 84439; 84443; 84481; 84484; 85002; 85025; 85027; 85610; 85730; 87641; 93005; 93306; 93460; 93620; 94150; 94640; 94667; 94668; 96365; 96374; 96375; C1721; C1730; C1760; C1769; C1893; C1895; C1898; G0269; J0153; J0282; J0690; J1644; J1940; J2250; J2370; J2405; J2720; J3010; J3370; J3475; J3480; J7030; J7040; J7050; J7060; Q9967